=== PATIENT | male | born 1965 | race Caucasian/White ===

== ENCOUNTER → 2018-03-06 11:49 | Outpatient (CLI) | payer MEDICAID, SELFPAY ==
[2018-03-06 13:08] LABS: Hemoglobin A1C 5.2 % (4.5-6.2)
[2018-03-06 14:03] LABS: ALT 123 U/L (12-78); AST 74 U/L (15-37); Albumin 4.1 g/dL (3.4-5.0); Alkaline Phosphatase 88 U/L (46-116); Anion Gap 8.4 mmol/L (3-11); BUN 5 mg/dL (7-18); Bilirubin, Total 0.8 mg/dL (0.2-1.0); CO2 28.6 mmol/L (21.0-32.0); CREATININE 0.99 mg/dL (0.70-1.30); Calcium 8.7 mg/dL (8.5-10.1); Chloride 105 mmol/L (98-107); Cholesterol 224 mg/dL (50-200); Glucose 101 mg/dL (70-100); HDL Cholesterol 67 mg/dL (40-60); LDL CHOLESTEROL 136 mg/dL (<100); Potassium 3.6 mmol/L (3.5-5.1); Sodium 142 mmol/L (136-145); Total Protein 7.6 g/dL (6.4-8.2); Triglyceride 147 mg/dL (30-150); Vitamin B12 501 pg/mL (193-986)
[2018-03-07 11:14] LABS: Homocysteine 15.3 umol/L (4.5-12.4)
[2018-03-09 12:21] LABS: Methylmalonic Acid 0.12 nmol/mL (<=0.40)
== END ==
PROVIDERS: PCP Family Medicine; Visit Provider Family Medicine
DX: I10 Essential (primary) hypertension (principal); R73.03 Prediabetes; R94.5 Abnormal results of liver function studies; D53.9 Nutritional anemia, unspecified
CPT/HCPCS: 36415; 80053; 80061; 80186; 83090; 83721; 82607; 82746; 83036

== ENCOUNTER → 2018-03-08 10:02 | Outpatient (CLI) | payer MEDICAID, SELFPAY ==
--- NOTE | 2018-03-08 09:52 | DI.REPORT_ITS ---
SYMPTOM/DIAGNOSIS: F/U FX LEFT LEG: When compared with previous images there has been no change in the apposition or alignment of the fibular or tibial fracture, intramedullary anabelle and screw fixation device in the tibia. There is evidence of early healing at the fracture sites.
== END ==
PROVIDERS: PCP Family Medicine; Visit Provider Orthopaedic Surgery
DX: S82.202G Unspecified fracture of shaft of left tibia, subsequent encounter for closed fracture with delayed healing (principal); S82.402G Unspecified fracture of shaft of left fibula, subsequent encounter for closed fracture with delayed healing
CPT/HCPCS: 73590

== ENCOUNTER 2018-03-19 11:09 | Emergency (ER) | payer MEDICAID, SELFPAY ==
[2018-03-19 11:15] VITALS: BP 118/98; PULSE 88; RESP 16; TEMP 36.9; O2SAT 99
--- NOTE | 2018-03-19 11:31 | DI.REPORT_ITS ---
SYMPTOM/DIAGNOSIS:REINJURY, H/O FX LEFT TIBIA AND FIBULA: Comparison is made with 03/08/18. An intramedullary anabelle is noted through the tibia. There has been no change in the alignment of the distal tibial fracture or proximal fibular fracture. Considerable lucency remains present at the tibial fracture. No new fractures are seen. 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 IMPRESSION: No acute abnormality. Subacute fractures of the tibia and fibula with tibial intramedullary anabelle.
--- NOTE | 2018-03-19 11:31 | ED.GENADUL ---
Disposition Clinical Impression: Fracture of tibia and fibula, shaft Disposition: HOME Condition: Fair Instructions: Leg Fracture (ED) Additional Instructions: Continue care as previously advised by orthopedics. Encourage rest, ice, elevation. Tylenol and/or ibuprofen as needed for discomfort. Please continue with postoperative boot. Keep appointment next week with Dr. Duncan. If you develop new or worsening symptoms please seek care urgently once again. Referrals: Shayne Duncan MD [ [facility] STAFF PHYSICIAN] - Medical Decision Making - Medical Decision Making Patient presents today with acute on chronic discomfort of the left lower extremity. Patient initially fractured his left tib-fib 5 months ago he underwent subsequent surgical intervention. Since that time the patient has had difficulty with healing. He has been followed by Dr. Duncan. Reinjured his left lower extremity a few days ago. Since that time is wearing his pneumatic boot which has been helping with discomfort. We will reimage it to evaluate for possible acute bony abnormality. Discussed this plan with the patient who is in agreement. He declines any analgesics at this time. Contacted radiologist discussed imaging. In particular, I was concerned on the lateral view of the posterior fragment off the fibula may have shifted further. However, she advised that this appeared more of a rotational change in the imaging rather than a true acute shift in the fragment. Discussed these findings with the patient. Advised that he will need follow-up with Dr. Duncan. He reports that he does have a follow-up appointment Arty scheduled next week. Encouraged rest, ice, elevation. His pneumatic walker does appear quite worn and I did offer him a new one which she declined. He reports that he has another one at home that he can use if need be. Advised to follow instructions as previously outlined by Dr. Duncan. He will keep boot on and will ambulate with assistive device such as cane or walker. All his questions and concerns were addressed and he is in agreement with this plan. He will seek care urgently once again if he develops new or worsening symptoms. History of Present Illness - General Chief complaint: Orthopedic Stated complaint: LT LEG INJURY Time Seen by Provider: 03/19/18 11:24 Source: patient, RN notes reviewed Mode of arrival: wheelchair Limitations: no limitations - History of Present Illness Initial comments: Patient is a 53-year-old male presenting today with chief complaint of left tibial pain. He reports that he fractured his tibia in September of this year. Subsequently had surgical intervention on 10/15/2017. Reports that he has had slow healing since that time. Reports that he was not wearing his postoperative boot or using assistive device and fell while getting out of the car 3 days ago. Since that time he has had discomfort, particularly when weightbearing. States the pain is in the same location as previously diagnosed fracture. Pain does radiate up towards the lateral inferior left knee. States that he has been experiencing some tingling in the left foot. Has not noted swelling near the left ankle. No opening in the skin. Has been using his postoperative shoe since the injury and his family is supportive. Denies other injury the time of the incident. - Related Data Fluticasone Propionate [Flonase] 2 sprays NS DAILY #1 bottle 08/15/17 Hydrochlorothiazide 12.5 mg PO DAILY 90 Days #90 tab-cap 12/26/17 Thiamine HCl 100 mg PO DAILY #30 tab-cap 02/05/18 Cholecalciferol (Vitamin D3) [Vitamin D3] 5,000 unit PO DAILY #90 tab-cap 02/06/18 Amlodipine Besylate 10 mg PO DAILY #90 tab-cap 02/19/18 Allergies Allergy/AdvReac Type Severity Reaction Status Date / Time lisinopril AdvReac Mild COUGH Unverified 03/19/18 11:20 Review of Systems Constitutional: no symptoms reported. denies: chills, fever Respiratory: no symptoms reported. denies: cough, shortness of breath Cardiovascular: denies: chest pain, palpitations Musculoskeletal: as per HPI Skin: as per HPI Neurological: as per HPI Past Medical History - Past Medical History Medical history: hypertension Alcohol abuse, ataxia Surgical history: other (Left tibia IM nail 10/15) - Social History Alcohol use: heavy Drug use: marijuana General Exam - General Limitations: no limitations General appearance: alert, in no apparent distress - Respiratory Respiratory exam: Present: normal lung sounds bilaterally. Absent: respiratory distress - Cardiovascular Cardiovascular Exam: Present: regular rate, normal rhythm, normal heart sounds - Extremities Exam Extremities exam: Present: tenderness (Patient has diffuse tenderness to palpation particularly in the anterior aspect of the tibia, this is worse along the inferior one half. He is also endorsing some lateral pain over the fibula that is more proximal towards the knee. No pain directly over the fibular head or neck. Limited range of motion of the ankle. He does have swelling of the ankle. No break in the skin. Incision appears to feel well with no erythema, warmth or drainage. Good capillary refill. Skin on the feet is quite dry. Calf is soft and nontender), normal capillary refill, joint swelling. Absent: normal inspection, full ROM, pedal edema, calf tenderness - Neurological Exam Neurological exam: Present: alert, abnormal gait - Psychiatric Psychiatric exam: Present: normal affect, normal mood - Skin Skin exam: Present: warm, dry, normal color Course Vital Signs - 24 hr 03/19/18 11:15 Temperature 36.9 C Pulse 88 Respiratory 16 Rate Blood Pressure 118/98 Pulse Oximetry 99
== END 2018-03-19 12:40 | disposition home or self-care (01) ==
PROVIDERS: Emergency Provider Student in an Organized Health Care Education/Training Program; PCP Family Medicine
DX: S89.92XA Unspecified injury of left lower leg, initial encounter (principal); V48.4XXA Person boarding or alighting a car injured in noncollision transport accident, initial encounter; S82.202G Unspecified fracture of shaft of left tibia, subsequent encounter for closed fracture with delayed healing; S82.402G Unspecified fracture of shaft of left fibula, subsequent encounter for closed fracture with delayed healing; I10 Essential (primary) hypertension
CPT/HCPCS: 99283; 73590; 99282

== ENCOUNTER 2018-04-09 09:13 | Outpatient (CLI) | payer MEDICAID, SELFPAY ==
[2018-04-09 11:17] LABS: Abs Immature Grans 0.02 k/cumm (0.0-0.09); Absolute Basophil Count 0.05 k/cumm (0.0-0.2); Absolute Eosinophil Count 0.16 k/cumm (0.0-0.7); Absolute Lymphocyte Count 2.38 k/cumm (1.2-3.4); Absolute Monocyte Count 0.67 k/cumm (0.11-0.7); Absolute Neutrophil Count 3.83 k/cumm (1.2-6.7); Basophils % 0.7; Eosinophils % 2.3; HCT 50.1 % (40.0-50.0); HGB 17.5 g/dL (13.5-17.5); Immature Grans % 0.3; Lymphocytes % 33.5; Mean Corp. HGB Concentration 34.9 g/dL (32.0-36.0); Mean Corpuscular Hemoglobin 34.8 pg (27.0-33.0); Mean Corpuscular Volume 99.6 fL (80-95); Mean Platelet Volume 10.5 fL (8.0-11.0); Monocytes % 9.4; Neutrophils % 53.8; Platelet Count 242 x1000/uL (130-400); RBC 5.03 m/cumm (4.50-6.00); White Blood Cell Count 7.11 k/cumm (4.4-10.8)
== END 2018-04-09 09:33 ==
PROVIDERS: PCP Family Medicine; Visit Provider Family Medicine
DX: R23.8 Other skin changes (principal)
CPT/HCPCS: 36415; 85025

== ENCOUNTER 2018-04-19 13:59 | Outpatient (CLI) | payer MEDICAID, SELFPAY ==
--- NOTE | 2018-04-19 09:27 | DI.RAD_ITS ---
SYMPTOMS/DIAGNOSIS: F/U FX LEFT LEG: When compared with the previous images of 03/19, again noted are the fractures of the tibia and fibula, unchanged in alignment. Tibial anabelle in place.
== END 2018-04-19 14:19 ==
PROVIDERS: PCP Family Medicine; Visit Provider Orthopaedic Surgery
DX: S82.202G Unspecified fracture of shaft of left tibia, subsequent encounter for closed fracture with delayed healing (principal); S82.402G Unspecified fracture of shaft of left fibula, subsequent encounter for closed fracture with delayed healing
CPT/HCPCS: 73590

== ENCOUNTER 2018-04-24 08:07 | Outpatient (CLI) | payer MEDICAID, SELFPAY | END 2018-04-24 08:27 | PROVIDERS: PCP Family Medicine; Visit Provider Orthopaedic Surgery | DX: S82.202G Unspecified fracture of shaft of left tibia, subsequent encounter for closed fracture with delayed healing (principal); S82.402G Unspecified fracture of shaft of left fibula, subsequent encounter for closed fracture with delayed healing; Z01.818 Encounter for other preprocedural examination ==

== ENCOUNTER 2018-04-25 10:57 | Day surgery (SDC) | payer MEDICAID, SELFPAY ==
[2018-04-25 11:06] VITALS: BP 138/88; PULSE 87; RESP 16; TEMP 37.5; O2SAT 96
[2018-04-25] MEDS: Lactated Ringers 1,000 ML 80 ML IV (11:43)
--- NOTE | 2018-04-25 13:37 | DI.RAD_ITS ---
SYMPTOMS/DIAGNOSIS: LEFT TIBIA SCREW/HARDWARE REMOVAL LEFT TIB/FIB: Fluoroscopy Time: 7.8 sec 0.81 mGy A single intraoperative image was obtained and reveals removal of a single screw from the proximal tibial intramedullary anabelle. Please see Dr. Duncan's procedure report for further information.
[2018-04-25 13:39] VITALS: BP 142/83; PULSE 81; RESP 14; TEMP 36.6; O2SAT 93
[2018-04-25 13:44] VITALS: BP 148/80; PULSE 79; RESP 16; TEMP 36.6; O2SAT 94
[2018-04-25 13:59] VITALS: BP 140/68; PULSE 78; RESP 16; TEMP 36.8; O2SAT 93
--- NOTE | 2018-04-25 14:11 | PDOC.DSDIS_ITS ---
Discharge Plan Disposition Patient Disposition: HOME Condition: Good Discharge Details Reason For Visit: remove locking screw from L tibia to dynamize IM n Attending Provider: Shayne Duncan Primary Care Provider: Steve German Home Meds and New Rx's Prescriptions: No Action amlodipine 10 mg tablet 10 mg PO DAILY RF: 0 cholecalciferol (vitamin D3) 5,000 unit capsule 5,000 unit PO DAILY RF: 0 hydrochlorothiazide 12.5 mg capsule 12.5 mg PO DAILY RF: 0 thiamine HCl (vitamin B1) 100 mg tablet 100 mg PO DAILY RF: 0 cyanocobalamin (vitamin B-12) [Vitamin B-12] 500 mcg Tablet 500 mcg PO DAILY RF: 0 calcium carbonate [Calcium 600] 600 mg calcium (1,500 mg) Tablet 600 mg PO DAILY RF: 0 fluticasone-sod chl-sod bicarb 50 mcg- 0.9 % Kit,[place] Suspension And [place] 1 spray Intranasal BID RF: 0 Discharge Instructions Additional Instructions: Increase weight-bearing to tolerance of pain on L leg. Remove dressings, shower and get incision wet after 48 hours. Leave incision uncovered when it is dry and sealed. Follow up in 's office in 1 month. Activity:: Activity as Tolerated Remove Dressings/Wound Care:: 48 hours Shower/Bathe:: 48 hours Diet:: As Tolerated Discharge Orders Discharge Orders: Discharge Order (Routine); Ordered 04/25/18 Ordered By: Shayne Duncan DS: Diagnosis Discharge Diagnosis (1) Closed disp spiral fx of shaft of left tibia with delayed healing: Start date: 04/25/18 Start time: 14:09 Status: Acute Asessment and Plan: Asessment: Delayed union fx L distal tibia, shaft. Plan: Dynamize IM nail by removing locking screw to allow compression across the fracture.
[2018-04-25 14:41] VITALS: BP 128/85; PULSE 82; RESP 18; TEMP 36.5; O2SAT 95
--- NOTE | 2018-04-25 16:46 | ROE_ITS ---
DATE OF PROCEDURE: April 25, 2018 PREOPERATIVE DIAGNOSIS: Delayed union fracture left distal third tibia and fibula. POSTOPERATIVE DIAGNOSIS: Same. PROCEDURE: Removal of proximal interlocking screw left tibia to dynamized IM nail. SURGEON: Shayne Duncan M.D. ANESTHESIA: MAC, supplemented with local infiltration. INDICATIONS: This is a 53-year-old white male who is approaching six months postop closed intramedul marcos nailing of a fracture of the distal third of the left tibia and fibula shaft. Although the stephenie ent is showing visible callus at the fracture, the healing is slow. I felt that he would benefit by dynamizing the nail by removing one of the proximal interlocking screws to allow compression to occur across the fracture. I felt that this would allow the fracture to go on to a more rapid union. The risks and complications of the procedure were explained to the patient in detail preoperatively. PROCEDURE: The patient was taken to the Operating Room on 04/25/18. He was placed supine on the oper ating table and MAC anesthesia was accomplished. I was able to palpate the head of the locking screw proximally medial to the tibia. I confirmed this was the proper screw with the C-arm image intensif ier. I then prepped the skin with ChloraPrep, block draped it, and made an approximately 15-mm incis ion over the screw head. I carried the incision right down to the screw. Sharp dissection was used to expose the screw head. The screwdriver was inserted and the screw was backed out and removed. Th e wound margins were infiltrated with 0.5% Marcaine solution and was approximated with two interrupte d #4-0 nylon sutures. The wound was dressed with Xeroform gauze, sterile gauze 4x4s, and wrapped wit h a 4-inch Osmani bandage. The patient tolerated the procedure well. MAC was reversed and he was disch arged to the Recovery Room in good condition. The patient was discharged home from the Day Surgery Unit when fully recovered. He was given instruc tions to be weightbearing as tolerated to the left leg with his walker. He may increase his weightbe aring as much as discomfort allows. He may remove his dressings, shower and get his incisions wet af ter 48 hours. He can leave the wound uncovered when it is dry and sealed. He will follow up in my o ffice in one month.
== END 2018-04-25 15:01 | disposition home or self-care (01) ==
PROVIDERS: PCP Family Medicine; Visit Provider Orthopaedic Surgery
PROC: (CPT 20680; principal; 2018-04-25 13:00)
DX: S82.202A Unspecified fracture of shaft of left tibia, initial encounter for closed fracture (principal); S82.402A Unspecified fracture of shaft of left fibula, initial encounter for closed fracture; X58.XXXA Exposure to other specified factors, initial encounter; I10 Essential (primary) hypertension
CPT/HCPCS: 20680; 73590; J1100; J2250; J2405; J3010

== ENCOUNTER 2018-05-24 11:10 | Outpatient (CLI) | payer MEDICAID, SELFPAY ==
--- NOTE | 2018-05-24 11:04 | DI.RAD_ITS ---
SYMPTOM/DIAGNOSIS: F/U FX LEFT LEG: Two views were obtained and show a previously described tibiofibular fracture with intramedullary fixation anabelle in place in the tibia. Alignment appears essentially unchanged in comparison with previous examination of 04/19/18.
== END 2018-05-24 11:30 ==
PROVIDERS: PCP Family Medicine; Visit Provider Orthopaedic Surgery
DX: S82.202D Unspecified fracture of shaft of left tibia, subsequent encounter for closed fracture with routine healing (principal); S82.402D Unspecified fracture of shaft of left fibula, subsequent encounter for closed fracture with routine healing
CPT/HCPCS: 73590

== ENCOUNTER 2018-06-20 10:07 | Outpatient (CLI) | payer MEDICAID, SELFPAY ==
--- NOTE | 2018-06-20 09:59 | DI.RAD_ITS ---
SYMPTOM/DIAGNOSIS: F/U FX LEFT LEG: Two views were obtained and show intramedullary anabelle fixation of fracture of the distal diaphysis of the tibia with associated fibular fracture. No gross interval change in alignment in comparison with examination of 05/24.
== END 2018-06-20 10:27 ==
PROVIDERS: PCP Family Medicine; Visit Provider Orthopaedic Surgery
DX: S82.402D Unspecified fracture of shaft of left fibula, subsequent encounter for closed fracture with routine healing (principal); S82.202D Unspecified fracture of shaft of left tibia, subsequent encounter for closed fracture with routine healing
CPT/HCPCS: 73590

== ENCOUNTER 2018-07-18 10:27 | Outpatient (CLI) | payer MEDICAID, SELFPAY ==
--- NOTE | 2018-07-18 10:18 | DI.RAD_ITS ---
SYMPTOMS/DIAGNOSIS: S/P OPEN REDUCTION AND INTERNAL FIXATION RIGHT LEG: When compared with the previous images of 01/28/2018, again noted are the fractures of the proximal fibular shaft and distal metaphysis of the tibia. An intramedullary anabelle and screw fixation device is noted in place and there is some interval healing at the tibial and fibular fracture sites. Portions of the fracture lines remain visible on the present images. There has been no interval change in apposition or alignment or the status of the intramedullary anabelle.
== END 2018-07-18 10:47 ==
PROVIDERS: PCP Family Medicine; Visit Provider Physician Assistant Surgical
DX: S82.202D Unspecified fracture of shaft of left tibia, subsequent encounter for closed fracture with routine healing (principal); S82.402D Unspecified fracture of shaft of left fibula, subsequent encounter for closed fracture with routine healing
CPT/HCPCS: 73590

== ENCOUNTER 2018-09-05 10:38 | Outpatient (CLI) | payer MEDICAID, SELFPAY ==
--- NOTE | 2018-09-05 10:31 | DI.RAD_ITS ---
SYMPTOM/DIAGNOSIS: F/U ORIF LEFT TIBIA AND FIBULA: Comparison is made with 07/18/18. An intramedullary anabelle is again noted through the tibia. There has been continued healing at the distal fibular fracture and proximal fibular fracture. The bones appear osteoporotic from disuse. No new abnormalities are seen.
== END 2018-09-05 10:58 ==
PROVIDERS: PCP Family Medicine; Visit Provider Orthopaedic Surgery
DX: S82.202D Unspecified fracture of shaft of left tibia, subsequent encounter for closed fracture with routine healing (principal); S82.402D Unspecified fracture of shaft of left fibula, subsequent encounter for closed fracture with routine healing; M81.8 Other osteoporosis without current pathological fracture
CPT/HCPCS: 73590

== ENCOUNTER 2018-09-20 12:55 | Outpatient (CLI) | payer MEDICAID, SELFPAY ==
[2018-09-20 13:43] LABS: Abs Immature Grans 0.03 k/cumm (0.0-0.09); Absolute Basophil Count 0.04 k/cumm (0.0-0.2); Absolute Eosinophil Count 0.08 k/cumm (0.0-0.7); Absolute Lymphocyte Count 2.34 k/cumm (1.2-3.4); Absolute Monocyte Count 0.66 k/cumm (0.11-0.7); Absolute Neutrophil Count 4.02 k/cumm (1.2-6.7); Basophils % 0.6; Eosinophils % 1.1; HCT 46.3 % (40.0-50.0); HGB 16.4 g/dL (13.5-17.5); Immature Grans % 0.4; Lymphocytes % 32.6; Mean Corp. HGB Concentration 35.4 g/dL (32.0-36.0); Mean Corpuscular Hemoglobin 35.3 pg (27.0-33.0); Mean Corpuscular Volume 99.8 fL (80-95); Mean Platelet Volume 10.2 fL (8.0-11.0); Monocytes % 9.2; Neutrophils % 56.1; Platelet Count 250 x1000/uL (130-400); RBC 4.64 m/cumm (4.50-6.00); RBC Distribution Width 12.4 % (11.8-14.1); White Blood Cell Count 7.17 k/cumm (4.4-10.8)
[2018-09-20 14:36] LABS: Iron 186 ug/dL (50-175)
[2018-09-20 15:09] LABS: ALT 147 U/L (12-78); AST 61 U/L (15-37); Albumin 4.1 g/dL (3.4-5.0); Alkaline Phosphatase 87 U/L (46-116); Anion Gap 11.8 mmol/L (3-11); BUN 12 mg/dL (7-18); Bilirubin, Total 0.7 mg/dL (0.2-1.0); CO2 27.2 mmol/L (21.0-32.0); CREATININE 1.06 mg/dL (0.70-1.30); Calcium 9.3 mg/dL (8.5-10.1); Chloride 104 mmol/L (98-107); Glucose 77 mg/dL (70-100); Potassium 4.1 mmol/L (3.5-5.1); Sodium 143 mmol/L (136-145); Total Protein 7.5 g/dL (6.4-8.2)
[2018-09-20 15:17] LABS: Ferritin 1615 ng/mL (8-388)
== END 2018-09-20 13:15 ==
PROVIDERS: PCP Family Medicine; Visit Provider Dermatology
DX: E80.1 Porphyria cutanea tarda (principal)
CPT/HCPCS: 36415; 80053; 82728; 83540; 84311; 85025

== ENCOUNTER 2018-11-05 02:16 | Outpatient (CLI) | payer MEDICAID, SELFPAY ==
[2018-11-05 13:02] LABS: ALT 123 U/L (12-78); AST 49 U/L (15-37); Albumin 3.7 g/dL (3.4-5.0); Alkaline Phosphatase 91 U/L (46-116); Anion Gap 10.3 mmol/L (3-11); BUN 13 mg/dL (7-18); Bilirubin, Total 0.7 mg/dL (0.2-1.0); CO2 27.7 mmol/L (21.0-32.0); Calcium 9.2 mg/dL (8.5-10.1); Chloride 103 mmol/L (98-107); Glucose 94 mg/dL (70-100); Iron 182 ug/dL (50-175); Potassium 4.4 mmol/L (3.5-5.1); Sodium 141 mmol/L (136-145); Total Iron Binding Capacity 316 ug/dL (250-450); Total Protein 7.3 g/dL (6.4-8.2); Transferrin Sat 58 % (20-55)
== END 2018-11-05 02:36 ==
PROVIDERS: PCP Family Medicine; Visit Provider Family Medicine
DX: I10 Essential (primary) hypertension (principal); R79.89 Other specified abnormal findings of blood chemistry
CPT/HCPCS: 36415; 80053; 83540; 83550

== ENCOUNTER 2018-12-31 09:14 | Outpatient (CLI) | payer SELFPAY ==
[2018-12-31 10:49] LABS: Abs Immature Grans 0.04 k/cumm (0.0-0.09); Absolute Basophil Count 0.03 k/cumm (0.0-0.2); Absolute Eosinophil Count 0.09 k/cumm (0.0-0.7); Absolute Lymphocyte Count 2.02 k/cumm (1.2-3.4); Absolute Monocyte Count 0.71 k/cumm (0.11-0.7); Basophils % 0.4; Eosinophils % 1.2; HCT 47.5 % (40.0-50.0); HGB 16.8 g/dL (13.5-17.5); Immature Grans % 0.5; Lymphocytes % 26.3; Mean Corp. HGB Concentration 35.4 g/dL (32.0-36.0); Mean Corpuscular Hemoglobin 35.4 pg (27.0-33.0); Mean Platelet Volume 10.1 fL (8.0-11.0); Monocytes % 9.2; Neutrophils % 62.4; Platelet Count 218 x1000/uL (130-400); RBC 4.75 m/cumm (4.50-6.00); RBC Distribution Width 12.2 % (11.8-14.1); White Blood Cell Count 7.69 k/cumm (4.4-10.8)
[2018-12-31 11:48] LABS: ALT 107 U/L (12-78); AST 49 U/L (15-37); Albumin 3.9 g/dL (3.4-5.0); Alkaline Phosphatase 106 U/L (46-116); Anion Gap 11.6 mmol/L (3-11); BUN 9 mg/dL (7-18); Bilirubin, Total 0.8 mg/dL (0.2-1.0); CO2 24.4 mmol/L (21.0-32.0); CREATININE 1.05 mg/dL (0.70-1.30); Calcium 9.5 mg/dL (8.5-10.1); Chloride 103 mmol/L (98-107); Glucose 107 mg/dL (70-100); Potassium 4.5 mmol/L (3.5-5.1); Sodium 139 mmol/L (136-145); Total Protein 7.7 g/dL (6.4-8.2)
[2019-01-01 12:23] LABS: GGT 223 U/L (15-85)
[2019-01-01 14:55] LABS: ANA Interpretation Negative (NEGAT)
== END 2018-12-31 09:34 ==
PROVIDERS: PCP Family Medicine; Visit Provider Family Medicine
DX: I10 Essential (primary) hypertension (principal); R94.5 Abnormal results of liver function studies; L03.90 Cellulitis, unspecified
CPT/HCPCS: 36415; 80053; 82977; 85025; 86038

== ENCOUNTER 2019-06-29 23:42 | Emergency (ER) | payer SELFPAY ==
[2019-06-29 23:51] VITALS: BP 145/91; PULSE 77; RESP 20; TEMP 36.6; O2SAT 100
[2019-06-30] VITALS (32 sets, daily range): BP systolic 115–156; BP diastolic 77–91; PULSE 82–98; RESP 18–39; O2SAT 92–97
--- NOTE | 2019-06-30 00:05 | ED.GENADUL_ITS ---
Discharge Plan Disposition Patient Disposition: HOME Condition: Improving Discharge Details Chief Complaint: Orthopedic Clinical Impression: Recurrent anterior dislocation of right shoulder Primary Care Provider: Steve German ED Provider: Shayne Tyler Home Meds and New Rx's Prescriptions: Continued irbesartan 300 mg tablet 300 mg PO DAILY Qty: 30 RF: 11 amlodipine 10 mg tablet 10 mg PO DAILY RF: 0 hydrochlorothiazide 12.5 mg capsule 12.5 mg PO DAILY RF: 0 Discharge Instructions Instructions: Shoulder Dislocation (ED) Additional Instructions: Please follow-up in orthopedic clinic for recheck. Call the office for an appointment time. The office #[phone]. Apply ice to area to reduce discomfort. Tylenol and/or ibuprofen if needed for pain. Wear sling except while bathing until seen in orthopedics for follow-up. Return to the emergency department for any acute concerns Medical Decision Making 54-year-old male who states he has had at least 15 episodes of recurrent right shoulder dislocation. Slipped on the ice tonight and reached out to grab his nearby vehicle when he felt a pop in the right shoulder with immediate pain. Denies striking his head. There was no loss of consciousness. He was not injured in any other way. His exam reveals loss of fullness of the right humeral head with the right arm held in slight abduction and internal rotation. IV placed and patient given analgesia, referred for x-ray. Initial x-ray: Anterior shoulder dislocation present with abnormal appearance of the glenoid and superolateral humeral head per report, could represent Bankart and Hill- Sachs deformities. Patient consented for procedural sedation, sedated with propofol, and the right glenohumeral joint was reduced with traction, abduction and external rotation. Postprocedure lateral deltoid sensation remains normal. Repeat x-ray: Anatomic alignment of right glenohumeral joint. Minute avulsion fracture cannot be excluded. Hill-Sachs deformity suspected on the pre- reduction study. Degenerative changes noted. Patient placed in sling, we will have him follow-up in orthopedic clinic for recheck given his extensive history of recurrent dislocations as well as chronic x-ray abnormalities. HPI General Mode of arrival: wheelchair . Date/Time Provider Initiated Documentation: 06/29/19 23:44 . Limitations to Documentation: no limitations . Information obtained by: patient and family . History of Present Illness 54 year old M presents to the emergency department with the chief complaint of Right shoulder pain after slip and fall, described as moderate and similar to prior episodes, Quality is described as dull, and is localized to the right and upper extremity. Patient reports no radiation. Patient started experiencing this minute(s) and it has been constant. No relieving factors improve symptom(s), No exacerbating factors reported . Patient notes no other symptoms.. Patient did receive the following treatments prior to arrival, none Related Data Home Medications Medication Instructions Recorded Confirmed amlodipine 10 mg tablet 10 mg PO DAILY 04/06/18 12/31/18 hydrochlorothiazide 12.5 mg capsule 12.5 mg PO DAILY 04/06/18 12/31/18 irbesartan 300 mg tablet 300 mg PO DAILY #30 tab 11/05/18 12/31/18 Previous Rx's Medication Instructions Recorded irbesartan 300 mg tablet 300 mg PO DAILY #30 tab 11/05/18 Allergies Allergy/AdvReac Type Severity Reaction Status Date / Time lisinopril AdvReac Mild COUGH Verified 06/30/19 00:04 General Stated Complaint: Orthopedic MAX: 3 Review of Systems Narrative: Denies a loss of consciousness. No head/neck/back/chest discomfort. No numbness or tingling. [facility] Medical History Alcohol use disorder, moderate, in early remission, dependence (Chronic 05/10/17) Allergic rhinitis (Acute 08/15/17) Closed disp spiral fx of shaft of left tibia with delayed healing (Acute) Elevated liver function tests (Acute 05/10/17) Essential hypertension (Chronic 05/10/17) Hepatic steatosis (Chronic 02/19/18) Elevated LFTs negative thorough workup previously. Possibly ingesting alcohol once again. Hypertension (Chronic 05/10/17) fair control. Macrocytic anemia (Chronic 03/06/18) We will repeat CBC. likely cause alcohol abuse Peripheral polyneuropathy (Chronic 05/10/17) Prediabetes (Chronic 02/19/18) Rectus sheath hematoma Recurrent dislocation, left shoulder Smoker (Chronic 12/26/17) currently 1 pack for week. Unstable gait (Chronic 05/10/17) Vitamin D deficiency (Chronic 01/26/18) Family History Father Heart disease Social History Smoking/Tobacco Use Status: Current every day Tobacco Type: cigarettes Alcohol Intake: current Alcohol Intake frequency: 3 or more drinks per day Alcohol type: beer Drug use: Occasionally Substance use type: marijuana Do you feel safe in your relationship?: Yes Exam Narrative Exam Narrative: GEN: awake, alert, oriented 3. Pleasant, interactive. HEAD: Normocephalic, atraumatic ENT: Mucous membranes moist, oropharynx unremarkable, External ear exam unremarkable EYES: PERRL, EOMI NECK: Full ROM, no LUPILLO, no menigismus CHEST/RESP: Nontender, clear to auscultation bilateral, no wheeze/rhonchi/rales CARDIOVASCULAR: RRR, no murmur, rub tarun. 2+ Rad pulse bilateral ABDOMEN: Soft, nontender, no mass. +Bowel sounds EXT: Left upper extremity unremarkable. The right upper extremity is held in abduction and internal rotation. Normal sensation overlying lateral deltoid. Neuro: Grossly normal neurologic exam, conversant, interactive. Psych: Speech fluent, thoughts congruent, affect normal Course Vital Signs Vital signs: Vital Signs Temperature 36.6 C 06/29/19 23:51 Pulse 77 06/29/19 23:51 Respiratory Rate 20 06/29/19 23:51 Blood Pressure 145/91 H 06/29/19 23:51 Pulse Oximetry 100 06/29/19 23:51 Temperature 36.6 C 06/29/19 23:51 Temperature Source Skin 06/29/19 23:51 Pulse 77 06/29/19 23:51 Respiratory Rate 20 06/29/19 23:51 Respiratory Effort 06/29/19 23:51 Blood Pressure 145/91 H 06/29/19 23:51 Pulse Oximetry 100 06/29/19 23:51 Oxygen Delivery Method Room Air 06/29/19 23:51 Oxygen Flow Rate 0 06/29/19 23:51 Pain Level 8 06/29/19 23:51 Procedures Orthopedic Joint Reduction Joint #1: Time Out Performed: Yes Side: right Joint Reduction Location: shoulder Analgesia: procedural sedation Shoulder Technique Used (if applicable): traction/counter-traction and external rotation Post-reduction neuro exam: intact and no change Post-reduction vascular: intact and no change Post Reduction X-Ray Obtained: Yes Post Reduction X-Ray Results: reduced Procedural Sedation Indication: fracture/dislocation reduction (R shoulder) ASA Class: II Time of Last PO Intake: 04:00 Preparation: clinical support tech applied, pulse oximeter and capnometry used IV Propofol dose (mg): 200 Patient Tolerated Procedure: well Complications: none
[2019-06-30] MEDS: Normal Saline 1,000 ML 150 ML IV (00:22)
[2019-06-30] MEDS: HYDROmorphone 2 MG/ML VIAL 0.5 MG IVP (00:22)
--- NOTE | 2019-06-30 00:33 | DI.RAD_ITS ---
EXAM: XR SHOULDER RT COMPLETE 2+V INDICATION: fall, R shoulder pain. COMPARISON: RIGHT SHOULDER COMPLETE from 08/17/2013 RIGHT SHOULDER COMP POST REDUC from 08/17/2013 RIGHT SHOULDER 1 VIEW from 05/24/2014 TECHNIQUE: 2D digital imaging was performed. FINDINGS: There is an anterior dislocation of the right shoulder. No definite acute fracture is appreciated. The appearance of the glenoid is similar compared to the examination from 08/17/2013. Degenerative c hanges are seen at the acromioclavicular joint. The soft tissues are unremarkable. IMPRESSION: Anterior dislocation of the right shoulder.
--- NOTE | 2019-06-30 00:45 | DI.VRAD_ITS ---
PROCEDURE INFORMATION: Exam: XR Right Shoulder Exam date and time: 06/30/2019 12:05 AM Age: 54 years old Clinical history: Right; Patient HX: Fall, R shoulder pain TECHNIQUE: Imaging protocol: XR Right shoulder. Views: 2 or more views. COMPARISON: CR RIGHT SHOULDER 1 VIEW 07/23/2015 3:18 AM FINDINGS: Bones/joints: Anterior dislocation of the humerus with respect to the glenoid. Abnormal appearance of the glenoid and superolateral humeral head. Soft tissues: Normal. IMPRESSION: 1. Anterior shoulder dislocation. 2. Abnormal appearance of the glenoid and superolateral humeral head could represent Bankart and Hill-Sachs deformities. Recommend further evaluation with post reduction radiographs or CT. Dictated and Authenticated by: Fabián Duffy MD. Ordering:RUDDY Bella MD
--- NOTE | 2019-06-30 00:59 | NUR.NOTE ---
Nursing Note:Waiting RT arrival before sedating patient for reduction
--- NOTE | 2019-06-30 01:40 | NUR.NOTE ---
Nursing Note:0110: Time-out- Dr. Tyler, Lázaro Macario (RT), Leticia Ramirez RN and Ele Mancera RN at bedside for timeout. 0114: 100 MG Propofol IV given by Dr. Tyler 0116: Dr. yTler manipulating right shoulder. Patient follows Dr. Tyler with eyes. 0117 Patient placed on 4L oxygen per NC by RT Lázaro 0119 100 MG Propofol IV given by Dr. Tyler. 0120 Dr Tyler manipulating right shoulder. 0123 Right arm placed in sling. 0124 Patient now on room air. 0130 Patient waking, able to give name and place [place] 0133 Patient states he ain't got that pulled back in. 0135 Patient now awake, oriented to person place and time. 0140 Waiting on post procedure xray. Patient sleeps at times, awakes easily to verbal. Remains oriented to person place and time. 0150 To radiology per cart. Patient remains alert and oriented x 3.
--- NOTE | 2019-06-30 01:56 | DI.RAD_ITS ---
EXAM: XR SHOULDER RT COMP POST REDUC INDICATION: s/p reduction. COMPARISON: XR SHOULDER RT COMPLETE 2+V from 06/30/2019 TECHNIQUE: 2D digital imaging was performed. FINDINGS: There appears to be successful reduction of the right shoulder dislocation. Alignment is near anatom ic. No definite fracture is identified. Deformity of the inferior aspect of the glenoid is unchange d compared to examination from 2014. The soft tissues are unremarkable. The bones are normally mine ralized. IMPRESSION: Status post reduction of the right shoulder dislocation. Alignment is now near anatomic. If there i s concern for fracture, a CT scan of the shoulder may be obtained for further evaluation.
--- NOTE | 2019-06-30 02:04 | NUR.NOTE ---
Nursing Note: 0200: Return from radiology per cart. OK to leave off surveillance monitor per Dr. Tyler.
--- NOTE | 2019-06-30 02:08 | NUR.NOTE ---
Nursing Note: Patient now call friend for ride home.
--- NOTE | 2019-06-30 02:18 | DI.VRAD_ITS ---
PROCEDURE INFORMATION: Exam: XR Right Shoulder Exam date and time: 06/30/2019 1:47 AM Age: 54 years old Clinical history: Screening exam; Post-reduction R shoulder; Patient HX: Post-reduction of R shoulder TECHNIQUE: Imaging protocol: XR Right shoulder. Views: 2 or more views. COMPARISON: CR XR SHOULDER RT COMPLETE 2+V 06/30/2019 12:33 AM FINDINGS: Bones/joints: Anatomic alignment of right glenohumeral joint now near normal. Minute avulsion fracture cannot be excluded from the inferior border of the glenoid. Hill-Sachs deformity suspected on the prereduction study. Degenerative changes of acromioclavicular joint. Soft tissues: Normal. IMPRESSION: 1. Near normal anatomic positioning of glenohumeral joint post reduction. 2. Minute avulsion fracture cannot be excluded from the inferior border of glenoid. 3. Hill-Sachs deformity cannot be excluded on images submitted for review. CT could be performed for further evaluation. Dictated and Authenticated by: Osbaldo Cooper MD. Ordering:RUDDY Bella MD
== END 2019-06-30 02:30 | disposition home or self-care (01) ==
PROVIDERS: Emergency Provider Emergency Medicine; PCP Family Medicine
DX: S43.014A Anterior dislocation of right humerus, initial encounter (principal); I10 Essential (primary) hypertension; W00.0XXA Fall on same level due to ice and snow, initial encounter
CPT/HCPCS: 23650; 73030; 96361; 96374; 99284; L3650

== ENCOUNTER 2020-06-29 19:17 | Outpatient (REF) | payer MEDICARE, SELFPAY ==
[2020-06-29 21:10] LABS: Abs Immature Grans 0.01 10^3/uL (0.0-0.06); Absolute Basophil Count 0.04 10^3/uL (0.0-0.2); Absolute Eosinophil Count 0.01 10^3/uL (0.0-0.7); Absolute Lymphocyte Count 1.32 10^3/uL (1.2-3.4); Absolute Monocyte Count 0.42 10^3/uL (0.1-0.8); Absolute Neutrophil Count 3.34 10^3/uL (1.2-6.7); Basophils % 0.8; Eosinophils % 0.2; HCT 46.9 % (40.0-50.0); HGB 16.3 g/dL (13.5-17.5); Immature Grans % 0.2; Lymphocytes % 25.7; MCH 34.7 pg (27.0-33.0); MCHC 34.8 % (32.0-36.0); MCV 99.8 fL (80-95); MPV 9.5 fL (8.0-11.0); Monocytes % 8.2; Neutrophils % 64.9; Nucleated RBC 0 %; Platelet Count 191 10^3/uL (130-400); RDW 11.9 % (11.8-14.1); RDW-SD 43.9 fL; WBC 5.14 10^3/uL (4.4-10.8)
[2020-06-29 21:37] LABS: ALT 53 U/L (16-63); AST 47 U/L (15-37); Albumin 3.9 g/dL (3.4-5.0); Alkaline Phosphatase 69 U/L (46-116); Anion Gap 10.5 mmol/L (3-11); BUN 5 mg/dL (7-18); Bilirubin, Total 0.8 mg/dL (0.2-1.0); CO2 24.5 mmol/L (21.0-32.0); Calcium 8.9 mg/dL (8.5-10.1); Calculated LDL 71 mg/dL (<100); Chloride 103 mmol/L (98-107); Cholesterol 178 mg/dL (<200); Glucose 95 mg/dL (74-106); HDL Cholesterol 99 mg/dL (40-60); Potassium 4.5 mmol/L (3.5-5.1); Sodium 138 mmol/L (136-145); Total Protein 7.3 g/dL (6.4-8.2); Triglyceride 40 mg/dL (<150)
[2020-06-29 21:47] LABS: Vitamin D 25 Total 31.3 ng/ml (30-100)
== END 2020-06-29 19:37 ==
LOC: LBN 19:17
PROVIDERS: PCP Family Medicine; Visit Provider Family Medicine
DX: I10 Essential (primary) hypertension (principal); E55.9 Vitamin D deficiency, unspecified; F10.21 Alcohol dependence, in remission; R27.0 Ataxia, unspecified
CPT/HCPCS: 80053; 80061; 82306; 85025

== ENCOUNTER → 2020-09-07 09:39 | Outpatient (BNVA) | payer MEDICARE, SELFPAY | PROVIDERS: PCP Family Medicine; Referring Provider Family Medicine; Visit Provider Psychiatry & Neurology Neurology | DX: R27.8 Other lack of coordination (principal); I10 Essential (primary) hypertension; R26.81 Unsteadiness on feet | CPT/HCPCS: 99215 ==

== ENCOUNTER 2020-09-09 02:52 | Outpatient (CLI) | payer MEDICARE, SELFPAY ==
[2020-09-09 12:49] LABS: Hemoglobin A1C 4.7 % (<5.7)
[2020-09-09 13:13] LABS: TSH (W/Ref FT4) 1.49 uIU/mL (0.36-3.74); Vitamin B12 255 pg/mL (193-986)
[2020-09-10 15:19] LABS: Albumin 59.4 % (55.8-66.1); Total Protein 7.5 g/dL (6.3-8.2)
== END 2020-09-09 02:53 | disposition home or self-care (01) ==
LOC: LOS 02:52
PROVIDERS: PCP Family Medicine; Visit Provider Psychiatry & Neurology Neurology
DX: I10 Essential (primary) hypertension (principal); R73.03 Prediabetes; G62.89 Other specified polyneuropathies; R26.89 Other abnormalities of gait and mobility
CPT/HCPCS: 36415; 82607; 83036; 84165; 84443

== ENCOUNTER 2020-11-16 16:30 | Emergency (ER) | payer MEDICARE, SELFPAY ==
[2020-11-16 16:36] VITALS: BP 159/97; PULSE 98; RESP 18; TEMP 36.8; O2SAT 97
--- NOTE | 2020-11-16 16:51 | ED.GENADUL_ITS ---
Discharge Plan Disposition Patient Disposition: HOME Condition: Stable Discharge Details Clinical Impression: Laceration of scalp Primary Care Provider: Steve German ED Provider: Byron Pereira Home Meds and New Rx's Prescriptions: Continued irbesartan 150 mg tablet 150 mg PO DAILY Qty: 90 RF: 3 amlodipine 5 mg tablet 5 mg PO DAILY Qty: 90 RF: 3 Discharge Instructions Instructions: Skin Adhesive Care (ED) Additional Instructions: if you have worsening pain, fevers, weakness, persistent vomit or yellow/white discharge from the wound return to the emergency department Medical Decision Making 55 yo male with hx of alcohol abuse resulting in ataxia requiring him to use a walker with peripheral neuropathy, was outside using his walker when he states he lost balance and fell back hitting his posterior head. Denies loss of consciousness, no vomit since and only has mild in posterior head where he hit the head. Denies any weakness, chest pain, neck pain, abdominal pain, dyspnea. Denies being on blood thinners. He has had alcohol today but is currently caox4 with clear speech and is clinically sober and has capacity to make his own decisions. On exam he has no scalp hematoma and has no signs of basilar skull fracture. He meets all criteria per [place] head ct rules to not image the head and has no midline c spine pain. He has a 1cm posterior scalp laceration. I recommended closing with abimael but he declined and also declined sutures. He is willing to have the woud closed with dermabond and was advised of reasons to close with abimael including quicker healing and will have less issues with it rebleeding and he still wants to have dermabond. I cleaned the wound and closed with dermabond, will d/c with usual customary return precautions Differential Diagnosis Differential Diagnosis: laceration, abrasion, contusion Medical Records Medical records reviewed: Yes I reviewed the patient's medical records. HPI General Mode of arrival: ambulatory (with walker) . Date/Time Provider Initiated Documentation: 11/16/20 16:43 . Limitations to Documentation: no limitations . Information obtained by: patient . History of Present Illness 55 year old M presents to the emergency department with the chief complaint of scalp wound, described as mild, Quality is described as aching, and it has been constant. No relieving factors improve symptom(s), No exacerbating factors reported . Patient notes no other symptoms.. Patient did receive the following treatments prior to arrival, none Related Data Home Medications Medication Instructions Recorded Confirmed amlodipine 5 mg tablet 5 mg PO DAILY #90 tab 07/10/20 11/16/20 irbesartan 150 mg tablet 150 mg PO DAILY #90 tab 07/10/20 11/16/20 Previous Rx's Medication Instructions Recorded amlodipine 5 mg tablet 5 mg PO DAILY #90 tab 07/10/20 irbesartan 150 mg tablet 150 mg PO DAILY #90 tab 07/10/20 Allergies Allergy/AdvReac Type Severity Reaction Status Date / Time lisinopril AdvReac Mild COUGH Verified 11/16/20 16:40 General Stated Complaint: Laceration MAX: 4 Review of Systems All systems reviewed & are unremarkable except as noted in HPI and below Constitutional Constitutional: Denies chills, Denies fever(s) and Denies weakness Eyes Eyes: Denies loss of vision Cardiovascular Cardiovascular: Denies chest pain and Denies dyspnea Respiratory Respiratory: Denies cough and Denies dyspnea Gastrointestinal Gastrointestinal: Denies abdominal pain, Denies nausea and Denies vomiting Musculoskeletal Musculoskeletal: Denies joint swelling Neurologic Neurologic: Denies loss of vision and Denies weakness FOR[facility]LY [facility], [facility] Medical History (Updated 11/16/20 @ 16:52 by Byron Pereira MD) Alcohol use disorder, moderate, in early remission, dependence (05/10/17) Allergic rhinitis (08/15/17) Closed disp spiral fx of shaft of left tibia with delayed healing Elevated liver function tests (05/10/17) Essential hypertension (05/10/17) Hepatic steatosis (02/19/18) Elevated LFTs negative thorough workup previously. Possibly ingesting alcohol once again. Hypertension (05/10/17) fair control. Macrocytic anemia (03/06/18) We will repeat CBC. likely cause alcohol abuse Peripheral polyneuropathy (05/10/17) Prediabetes (02/19/18) Rectus sheath hematoma Recurrent dislocation, left shoulder Smoker (12/26/17) currently 1 pack for week. Unstable gait (05/10/17) Vitamin D deficiency (01/26/18) Family History Father Heart disease Social History Smoking/Tobacco Use Status: Current every day Tobacco Type: cigarettes Smoking risk assessment performed?: Yes Alcohol Intake: current Alcohol Intake frequency: 3 or more drinks per day Alcohol type: beer Drug use: Occasionally Substance use type: marijuana Household members: none Housing: apartment Number of Children: 3 number of grandchildren: 8 Pets and animals: Yes Pets and animals: fish What is your relationship status?: Panel score (0-1 are the most socially isolated patients): 0 What type of physical activity do you participate in: walking Seatbelt use: sometimes Do you feel safe in your relationship?: Yes Additional Social history: patient is homeless Exam Const General: no acute distress Orientation: alert HENMT Head: no palpable skull fracture Ears: external ears normal General nose exam: external nose normal Mouth: moist mucous membranes Eyes General: appearance normal, both eyes and all related structures Neck Neck: normal visual inspection Resp Effort & Inspection: normal respiratory effort and able to speak in complete sentences Cardio Rate: regular rate Skin General skin exam: no rashes or lesions noted Neuro General: patient alert and patient oriented x3 Extrem General: normal to inspection Psych Mental Status: mental status grossly normal Course Vital Signs Vital signs: Vital Signs Temperature 36.8 C 11/16/20 16:36 Pulse 98 H 11/16/20 16:36 Respiratory Rate 18 11/16/20 16:36 Blood Pressure 159/97 H 11/16/20 16:36 Pulse Oximetry 97 11/16/20 16:36 Temperature 36.8 C 11/16/20 16:36 Temperature Source Temporal Artery Scan 11/16/20 16:36 Pulse 98 H 11/16/20 16:36 Respiratory Rate 18 11/16/20 16:36 Respiratory Effort Non-Labored 11/16/20 16:41 Blood Pressure 159/97 H 11/16/20 16:36 Blood Pressure Position Sitting 11/16/20 16:36 Pulse Oximetry 97 11/16/20 16:36 Oxygen Delivery Method Room Air 11/16/20 16:36 Oxygen Flow Rate 0 11/16/20 16:36 Pain Level 2 11/16/20 16:36 Procedures Laceration Laceration 1: Site: scalp Size (cm): 1 Description: linear Depth: simple, single layer Pre-repair: wound explored and irrigated extensively Skin layer closed with: other (skin adhesive dermabond)
== END 2020-11-16 17:18 | disposition home or self-care (01) ==
PROVIDERS: Emergency Provider Emergency Medicine; PCP Family Medicine
DX: S01.01XA Laceration without foreign body of scalp, initial encounter (principal); W18.39XA Other fall on same level, initial encounter
CPT/HCPCS: 12001

== ENCOUNTER 2021-02-08 09:53 | Inpatient (IN) | payer MEDICARE, SELFPAY ==
[2021-02-08] VITALS (68 sets, daily range): BP systolic 118–158; BP diastolic 79–90; PULSE 98–129; RESP 15–36; TEMP 37.2–37.7; O2SAT 96–100
--- NOTE | 2021-02-08 | DI.CT_ITS ---
Exam(s) CT LOWER EXTREMITY LT W EXAM: CT LOWER EXTREMITY LT W CLINICAL HISTORY: LEG WOUND. TECHNIQUE: Imaging Protocol: Axial computed tomography images with coronal and sagittal reformatted images were created and reviewed. CONTRAST MATERIAL: Intravenous: Omnipaque 350 Contrast volume:structured data in ml Contrast route:I V - Oral: yes / no COMPARISON: No exams were available for comparison FINDINGS: OSSEOUS: No acute fractures. Intramedullary anabelle noted in the tibia. No evidence of osteomyelitis. ARTICULATIONS: No evidence of hip joint effusion nor fusion the knee nor ipsilateral ankle joint effu saadia. SOFT TISSUES: Abundant subcutaneous edema in the thigh and calf. No obvious abscess. No radiopaque foreign body. IMPRESSION: Prominent subcutaneous edema in the thigh and calf. No obvious abscess. No evidence of osteomyeliti s. No joint effusion. Incidentally noted is a long intramedullary anabelle in left tibia and 2 fractures in the mid fibula, 1 he aled and the other slightly above this level nonunion. RADIATION DOSE DELIVERED: Total DLP DATA REPOSITORY: All CT scans at this facility are submitted to the National Radiology Data Registry (NRDR) Dose Index Registry (DIR) with the [employer] (ACR). RADIATION OPTIMIZATION: All CT scans at this facility use at least one of these dose optimization te chniques: automated exposure control; mA and/or kV adjustment per patient size (includes targeted exa ms where dose is matched to clinical indication); or iterative reconstruction.
--- NOTE | 2021-02-08 10:00 | RT.EKG_ITS ---
APPROVED REPORT Exam: Resting ECG Reason for Exam: tachycardia Patient Location: E HR:126 bpm ECG Measurements Heart Rate 126 AXIS LA 142 P 43 QRSd 86 QRS 39 QT 321 T 0 QTc 465 Conclusion Sinus tachycardia...rate> 99 Inferior infarct, old...Q >35mS, II III aVF sinus tachycardia at 126, normal axis, inferior Q waves, no STEMI, nondiagnostic EKG
--- NOTE | 2021-02-08 10:12 | W.ED.GENAD ---
Discharge Plan Discharge Details Chief Complaint: GenMedical Admit Date/Time: 02/08/21 14:02 Admit Provider: Kris Rogers Attending Provider: Kris Rogers Primary Care Provider: Elvin Pascual ED Provider: Lucille Flores Discharge Data Discharge Date/Time-TO BE ENTERED AT DEPARTURE: 02/08/21 14:54 Medical Decision Making Binu Bello is a 56-year-old man who presented to emergency department with pain in his sacral area, buttocks, scrotum, bilateral posterior thighs after being seated in his car without moving for over 1 month. On examination patient is alert and acutely nontoxic appearing. Initially there was excrement putting skin diffusely in the areas of patient's pain. Significant skin breakdown/dermatitis over her sacrum, buttock, scrotum, bilateral posterior thighs. Concern for dehydration, metabolic/lyte derangement, cellulitis, DVT, other. Doubt deep space infection, Houston's gangrene, however given the extent of skin wounds plan for CT pelvis and bilateral lower legs to the knee. Plan for IV fluid hydration, IV placement, screening labs, UA. Exam/history at this time is not consistent with pulmonary embolism, acute coronary syndrome, sepsis, cauda equina syndrome. Labs reviewed. Imaging shows no abscess, no soft tissue gas. Plan for admission for further evaluation, wound care. Patient will likely need extensive delinquency prevention social worker/placement. Clinical impression: Skin wounds Disposition: [facility] inpatient Medical Records Medical records reviewed: Yes I reviewed the patient's medical records. Imaging Data Radiologic Study: Attestation: I personally reviewed and interpreted this imaging study as follows: Radiologist's impression: EXAM: US EXTREMITY VENOUS BI CLINICAL HISTORY: b/l leg pain, prolonged immobility TECHNIQUE: Grayscale, color, and doppler imaging of the deep venous system of both lower extremities was performed. COMPARISON: US ABDOMEN ULTRASOUND (P) from 05/12/2017 FINDINGS: There is no evidence of intraluminal thrombus and there is normal compression and augmentation demonstrated within the common femoral veins, femoral veins, and popliteal veins of both lower extremities. In the calves the interrogated veins also exhibit normal compression/ augmentation properties. The greater saphenous veins also appear patent as do the saphenofemoral junctions bilaterally.. There are prominent lymph nodes in both groins which are most probably reactive given the history here. There is also bilateral calf and thigh edema. IMPRESSION: 1. No ultrasound evidence of DVT in either lower extremity. 2. Bilateral calf and thigh edema. 3. There are reactive lymph nodes in both groins node EXAM: CT LOWER EXTREMITY RT W CLINICAL HISTORY: thigh pain, skin breakdown. TECHNIQUE: Imaging Protocol: Axial computed tomography images with coronal and sagittal reformatted images were created and reviewed. CONTRAST MATERIAL: Intravenous: Omnipaque 350 Contrast volume:structured data in ml Contrast route:IV - COMPARISON: No exams were available for comparison FINDINGS: OSSEOUS: No fractures no radiographic evidence of osteomyelitis.. No lytic osseous lesions in the bones of the lower extremity. SOFT TISSUES: There is some subcutaneous edema predominantly in the lower phi and calf extending down to the ankle. There is no evidence ring-enhancing abscess. ARTICULATIONS: No evidence of knee joint effusion. No obvious hip joint effusion. No prominent ankle joint effusion IMPRESSION: Abundant subcutaneous edema at and above the ankle throughout the entire calf and extending up to the mid thigh level. There is no evidence of discrete abscess and no evidence of joint effusion. No obvious evidence of osteomyelitis. Slightly prominent lymph nodes are noted in the groin which are most probably reactive. Please note this patient had a bilateral negative DVT leg study today. Exam(s) CT ABDOMEN PELVIS W EXAM: CT ABDOMEN PELVIS W CLINICAL HISTORY: abd pain, sacral wound, scrotal skin breakdown. TECHNIQUE: Imaging Protocol: Axial computed tomography images with coronal and sagittal reformatted images were created and reviewed CONTRAST MATERIAL: Intravenous: Omnipaque 100cc Oral: None COMPARISON: CT CHEST ABD PELVIS WITH CONTRAST from 10/12/2017 FINDINGS: VISUALIZED LUNG BASES: No nodules nor pleural effusions evident. Heart size normal. No pericardial effusion. ABDOMEN: There is no ascites. LIVER: Liver is hypodense implying steatosis. However, there are no discrete focal hepatic lesions. No dilatation of intrahepatic ducts GALLBLADDER/BILIARY: No obvious gallbladder pathology. CBD is not dilated. PANCREAS: No evidence of pancreatic mass nor dilatation of the pancreatic duct. SPLEEN: Spleen is not enlarged. No obvious intrasplenic lesions. Splenic and portal veins are patent. ADRENALS: There are no significant adrenal masses. KIDNEYS:No cysts evident. No solid renal masses. No calculi nor hydronephrosis.. ABDOMINAL AORTA: Abdominal aorta is not enlarged. LYMPH NODES:There is no retroperitineal nor paraaortic adenopathy. ABDOMINAL WALL: No evidence of significant anterior abdominal wall hernia. GI: There is no evidence of bowel obstruction, free air, nor abscess. PELVIS: GI: No evidence of appendicitis.No evidence of sigmoid diverticulitis.Sigmoid is redundant. However, without evidence of obvious diverticular disease. LYMPH NODES: There is no obvious intrapelvic adenopathy. Slightly prominent lymph nodes are noted in both groins-in for inguinal regions. REPRODUCTIVE: Prostate gland is not enlarged. Seminal vesicles appear unremarkable. URINARY BLADDER: No calculi nor obvious masses evident OSSEOUS: There are healed fractures of the 10th right rib and 11th left ribs. No acute fractures identified. There are pars defects at L5 level but no associated listhesis of L5 upon S1. Lowermost images of this abdominal study reveal subcutaneous edema over the lateral left thigh, only partially included in the field of view and extending beyond the field of view. IMPRESSION: 1. Hepatic steatosis. No focal hepatic lesions identified no splenomegaly. No ascites. No intra-abdominal ascites 2. There are enlarged lymph nodes in both lower groins which are most probably related to the findings in both lower extremities (see separate studies). 3. In the field of view of this abdomen-pelvic study there is subcutaneous edema over the lateral left thigh only partially included in the field of view. 4. No evidence of osteomyelitis in the ischial tuberosities. No prominent decubitus ulcers these levels. Sacrum appears intact. Lab Data Lab results reviewed: Yes I reviewed the patient's lab results. ECG Data Attestation: I personally reviewed and interpreted this ECG (s) as follows: Interpretation: EKG shows sinus tachycardia at 126, normal axis, inferior Q waves, no STEMI, nondiagnostic EKG HPI General Mode of arrival: EMS. Date/Time Provider Initiated Documentation: 02/08/21 10:07. Limitations to Documentation: no limitations. Information obtained by: patient, RN notes reviewed and old records reviewed. HPI Narrative: Binu Bello is a 56 y/o man with history of hypertension, alcohol use disorder presenting to the emergency department with lower extremity pain and weakness. Patient is homeless and has been living in a hotel. Patient reports that he is only able to walk with a walker secondary to pain in his left leg from trauma 3 years ago. Patient reports that he has been staying in a hotel, but left 5 or 6 weeks ago. Patient reports that because he is unable to walk without a walker, and the he has been living in his car for over a month due to pain/weakness in his lower extremities that is chronic. Patient states that he does not leave his car at all, and has been defecating and urinating while seated in the car. Patient reports that he has been unable to afford his high blood pressure medications and thus has not been taking them. He states that he has new pain at the top buttocks where he has hot spots. Patient also reports pain in the back of his thighs and in his scrotum. Buttuck, thigh, and scrotal pain has been ongoing for the past month, and is different from his chronic left lower extremity pain. He denies fever, vomiting, shortness of breath, cough, numbness. Reports chronic bilateral leg weakness that is unchanged. Nursing spoke to patient's mother, who reported that has alcohol use disorder and continues to drink intermittently. She reports that patient has refused help from his family. She reports that it was recently discovered that patient has been living in his car and not walking, and at his family's urging patient presented to the emergency department. Related Data Home Medications Medication Instructions Recorded Confirmed amlodipine 5 mg PO QAM 02/09/21 02/09/21 irbesartan 150 mg PO QAM 02/09/21 02/09/21 Allergies Allergy/AdvReac Type Severity Reaction Status Date / Time lisinopril AdvReac Mild COUGH Verified 02/08/21 10:04 General Stated Complaint: GenMedical MAX: 3 Review of Systems Narrative: Constitutional: denies fevers Eyes: denies eye pain ENT: denies ear pain, dental pain, sore throat Cardiovascular: denies chest pain Respiratory: denies SOB, cough GI: denies abdominal pain, vomiting, diarrhea : denies flank pain, dysuria, reports scrotal pain MSK: denies neck pain, arthralgias, reports chronic unchanged left lower leg pain, reports new pain bilateral posterior thighs, reports sacral pain from hot spot. Denies other back pain. Skin: denies rash Neuro: denies headaches, numbness, weakness [facility] Medical History (Updated 02/10/21 @ 16:26 by Mary Hameed NP) Alcohol use disorder, moderate, in early remission, dependence (05/10/17) Allergic rhinitis (08/15/17) Closed disp spiral fx of shaft of left tibia with delayed healing Elevated liver function tests (05/10/17) Essential hypertension (05/10/17) Hepatic steatosis (02/19/18) Elevated LFTs negative thorough workup previously. Possibly ingesting alcohol once again. Hypertension (05/10/17) fair control. Macrocytic anemia (03/06/18) We will repeat CBC. likely cause alcohol abuse Peripheral polyneuropathy (05/10/17) Prediabetes (02/19/18) Rectus sheath hematoma Recurrent dislocation, left shoulder Smoker (12/26/17) currently 1 pack for week. Unstable gait (05/10/17) Vitamin D deficiency (01/26/18) Family History Father Heart disease Social History Smoking/Tobacco Use Status: Current every day Tobacco Type: cigarettes Smoking risk assessment performed?: Yes Alcohol Intake: current Alcohol Intake frequency: 3 or more drinks per day Alcohol type: beer Drug use: Occasionally Substance use type: marijuana Household members: none Housing: apartment Number of Children: 3 number of grandchildren: 8 Pets and animals: Yes Pets and animals: fish What is your relationship status?: Panel score (0-1 are the most socially isolated patients): 0 What type of physical activity do you participate in: walking Seatbelt use: sometimes Do you feel safe in your relationship?: Yes Additional Social history: patient is homeless, lives in car- unable to walk, reports no support services in place Exam Narrative Exam Narrative: Constitutional: [id number], severely disheveled, feces caked on buttocks and bilateral lower extremities, pleasant, conversing normally HENT: head atraumatic/normocephalic/normal inspection, mucous membranes moist Eyes: conjunctiva normal, sclera normal, pupils 3mm b/l Neck: no stridor, normal ROM, trachea midline Chest: normal inspection Resp: normal work of breathing, LCTAB Cardio: Tachycardic rate, normal rhythm, no murmur appreciated GI: abdomen soft, non-tender, non-distended : Normal examination of the penis, scrotum with significant skin breakdown, diffuse tenderness to palpation, no edema, no mass, no extension of skin breakdown in the inguinal areas or abdomen Back: Stage II sacral ulcers present, significant skin breakdown of both buttocks, otherwise normal inspection of the back Skin: warm, dry, normal color Neuro: alert, not altered, grossly non-focal, normal tone Ext: Significant skin breakdown bilateral posterior thighs. No fluctuant, no crepitus. Ranging bilateral hips and knees normally, no 100 next palpation of bilateral hips, bilateral knees. DP pulses intact and symmetric. There is no rash or skin changes to the bilateral lower legs. Psych: normal mood, normal affect, normal behavior Course Vital Signs Vital signs: Vital Signs Temperature 37.2 C 02/08/21 09:56 Pulse 123 H 02/08/21 09:56 Respiratory Rate 20 02/08/21 09:56 Blood Pressure 158/87 H 02/08/21 09:56 Pulse Oximetry 98 02/08/21 09:56 Temperature 37.2 C 02/08/21 09:56 Temperature Source Skin 02/08/21 09:56 Pulse 123 H 02/08/21 09:56 Respiratory Rate 20 02/08/21 09:56 Respiratory Effort Non-Labored 02/08/21 10:03 Blood Pressure 158/87 H 02/08/21 09:56 Blood Pressure Position Sitting 02/08/21 09:56 Pulse Oximetry 98 02/08/21 09:56 Oxygen Delivery Method Room Air 02/08/21 09:56 Oxygen Flow Rate 0 02/08/21 09:56 Pain Level 6 02/08/21 09:56 Lab/Test Results Lab/Test Results: 02/08/21 10:07 Blood Blood Culture - Pending 02/08/21 10:07 Blood Blood Culture - Pending
[2021-02-08] MEDS: Normal Saline 1,000 ML 1000 ML IV (10:30)
--- NOTE | 2021-02-08 10:45 | DI.US_ITS ---
Exam(s) US EXTREMITY VENOUS BI EXAM: US EXTREMITY VENOUS BI CLINICAL HISTORY: b/l leg pain, prolonged immobility TECHNIQUE: Grayscale, color, and doppler imaging of the deep venous system of both lower extremities was performed. COMPARISON: US ABDOMEN ULTRASOUND (P) from 05/12/2017 FINDINGS: There is no evidence of intraluminal thrombus and there is normal compression and augmentation demons trated within the common femoral veins, femoral veins, and popliteal veins of both lower extremities. In the calves the interrogated veins also exhibit normal compression/ augmentation properties. The greater saphenous veins also appear patent as do the saphenofemoral junctions bilaterally.. There are prominent lymph nodes in both groins which are most probably reactive given the history her e. There is also bilateral calf and thigh edema. IMPRESSION: 1. No ultrasound evidence of DVT in either lower extremity. 2. Bilateral calf and thigh edema. 3. There are reactive lymph nodes in both groins node DATA REPOSITORY:
[2021-02-08 10:47] LABS: Abs Immature Grans 0.03 10^3/uL (0.0-0.06); Absolute Basophil Count 0.01 10^3/uL (0.0-0.2); Absolute Lymphocyte Count 0.68 10^3/uL (1.2-3.4); Absolute Monocyte Count 0.87 10^3/uL (0.1-0.8); Absolute Neutrophil Count 4.73 10^3/uL (1.2-6.7); Basophils % 0.2; HCT 42.6 % (40.0-50.0); HGB 15.5 g/dL (13.5-17.5); Immature Grans % 0.5; Lymphocytes % 10.8; MCH 36.1 pg (27.0-33.0); MCHC 36.4 % (32.0-36.0); MCV 99.3 fL (80-95); MPV 8.6 fL (8.0-11.0); Monocytes % 13.8; Neutrophils % 74.7; Nucleated RBC 0 %; Platelet Count 161 10^3/uL (130-400); RBC 4.29 10^6/uL (4.36-5.78); RDW-SD 40.4 fL; WBC 6.32 10^3/uL (4.4-10.8)
[2021-02-08 10:49] LABS: Lactate 3.2 mmol/L (0.6-1.4)
[2021-02-08 11:16] LABS: ALT 25 U/L (16-63); AST 16 U/L (15-37); Albumin 2.5 g/dL (3.4-5.0); Alkaline Phosphatase 63 U/L (46-116); Anion Gap 12.6 mmol/L (3-11); BUN 15 mg/dL (7-18); Bilirubin, Total 1.4 mg/dL (0.2-1.0); CO2 22.4 mmol/L (21.0-32.0); Calcium 8.7 mg/dL (8.5-10.1); Chloride 92 mmol/L (98-107); Creatine Kinase 82 U/L (39-308); Glucose 81 mg/dL (74-106); Potassium 4.1 mmol/L (3.5-5.1); Sodium 127 mmol/L (136-145); Total Protein 6.3 g/dL (6.4-8.2)
[2021-02-08 11:19] LABS: ETHANOL BLOOD < 3.0 mg/dL (<3)
--- NOTE | 2021-02-08 11:30 | DI.CT_ITS ---
Exam(s) CT LOWER EXTREMITY RT W EXAM: CT LOWER EXTREMITY RT W CLINICAL HISTORY: thigh pain, skin breakdown. TECHNIQUE: Imaging Protocol: Axial computed tomography images with coronal and sagittal reformatted images were created and reviewed. CONTRAST MATERIAL: Intravenous: Omnipaque 350 Contrast volume:structured data in ml Contrast route:I V - COMPARISON: No exams were available for comparison FINDINGS: OSSEOUS: No fractures no radiographic evidence of osteomyelitis.. No lytic osseous lesions in the dalton zhang of the lower extremity. SOFT TISSUES: There is some subcutaneous edema predominantly in the lower phi and calf extending down to the ankle. There is no evidence ring-enhancing abscess. ARTICULATIONS: No evidence of knee joint effusion. No obvious hip joint effusion. No prominent ankl e joint effusion IMPRESSION: Abundant subcutaneous edema at and above the ankle throughout the entire calf and extending up to the mid thigh level. There is no evidence of discrete abscess and no evidence of joint effusion. No ob vious evidence of osteomyelitis. Slightly prominent lymph nodes are noted in the groin which are most probably reactive. Please note this patient had a bilateral negative DVT leg study today. RADIATION DOSE DELIVERED: Total DLP DATA REPOSITORY: All CT scans at this facility are submitted to the National Radiology Data Registry (NRDR) Dose Index Registry (DIR) with the [employer] (ACR). RADIATION OPTIMIZATION: All CT scans at this facility use at least one of these dose optimization te chniques: automated exposure control; mA and/or kV adjustment per patient size (includes targeted exa ms where dose is matched to clinical indication); or iterative reconstruction.
--- NOTE | 2021-02-08 12:13 | DI.CT_ITS ---
Exam(s) CT ABDOMEN PELVIS W EXAM: CT ABDOMEN PELVIS W CLINICAL HISTORY: abd pain, sacral wound, scrotal skin breakdown. TECHNIQUE: Imaging Protocol: Axial computed tomography images with coronal and sagittal reformatted images were created and reviewed CONTRAST MATERIAL: Intravenous: Omnipaque 100cc Oral: None COMPARISON: CT CHEST ABD PELVIS WITH CONTRAST from 10/12/2017 FINDINGS: VISUALIZED LUNG BASES: No nodules nor pleural effusions evident. Heart size normal. No pericardial effusion. ABDOMEN: There is no ascites. LIVER: Liver is hypodense implying steatosis. However, there are no discrete focal hepatic lesions. No dilatation of intrahepatic ducts GALLBLADDER/BILIARY: No obvious gallbladder pathology. CBD is not dilated. PANCREAS: No evidence of pancreatic mass nor dilatation of the pancreatic duct. SPLEEN: Spleen is not enlarged. No obvious intrasplenic lesions. Splenic and portal veins are paten t. ADRENALS: There are no significant adrenal masses. KIDNEYS:No cysts evident. No solid renal masses. No calculi nor hydronephrosis.. ABDOMINAL AORTA: Abdominal aorta is not enlarged. LYMPH NODES:There is no retroperitineal nor paraaortic adenopathy. ABDOMINAL WALL: No evidence of significant anterior abdominal wall hernia. GI: There is no evidence of bowel obstruction, free air, nor abscess. PELVIS: GI: No evidence of appendicitis.No evidence of sigmoid diverticulitis.Sigmoid is redundant. However, without evidence of obvious diverticular disease. LYMPH NODES: There is no obvious intrapelvic adenopathy. Slightly prominent lymph nodes are noted in both groins-in for inguinal regions. REPRODUCTIVE: Prostate gland is not enlarged. Seminal vesicles appear unremarkable. URINARY BLADDER: No calculi nor obvious masses evident OSSEOUS: There are healed fractures of the 10th right rib and 11th left ribs. No acute fractures mitul ntified. There are pars defects at L5 level but no associated listhesis of L5 upon S1. Lowermost images of this abdominal study reveal subcutaneous edema over the lateral left thigh, only partially included in the field of view and extending beyond the field of view. IMPRESSION: 1. Hepatic steatosis. No focal hepatic lesions identified no splenomegaly. No ascites. No intra-ab dominal ascites 2. There are enlarged lymph nodes in both lower groins which are most probably related to the finding s in both lower extremities (see separate studies). 3. In the field of view of this abdomen-pelvic study there is subcutaneous edema over the lateral lef t thigh only partially included in the field of view. 4. No evidence of osteomyelitis in the ischial tuberosities. No prominent decubitus ulcers these lev els. Sacrum appears intact. RADIATION DOSE DELIVERED: Total DLP DATA REPOSITORY: All CT scans at this facility are submitted to the National Radiology Data Registry (NRDR) Dose Index Registry (DIR) with the [employer] (ACR). RADIATION OPTIMIZATION: All CT scans at this facility use at least one of these dose optimization te chniques: automated exposure control; mA and/or kV adjustment per patient size (includes targeted exa ms where dose is matched to clinical indication); or iterative reconstruction.
[2021-02-08] MEDS: Normal Saline - Diluent 50 ML VIAL IV (12:14)
[2021-02-08] MEDS: Omnipaque 350 MG/ML 100 ML BTL IJ (12:14)
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
[2021-02-08 12:55] LABS: Bilirubin Negative (Negative); Blood Negative (Negative); Clarity Clear (Clear); Glucose Negative (Negative); Ketones 15 mg/dL (Negative); Leukocyte Esterase Negative (Negative); Nitrite Negative (Negative); pH 6.5 (5-8)
[2021-02-08] MEDS: cefTRIAXone 2 GM/50 ML BAG IVPB (13:09)
[2021-02-08] MEDS: Acetaminophen 325 MG TAB 650 MG PO (13:25)
[2021-02-08] MEDS: VANCOMYCIN/WATER (PEG) 2 GM/400 ML BAG IVPB (13:31)
[2021-02-08 14:09] LABS: Source Nasal/Nares
[2021-02-08 16:32] LABS: Lactate 1.3 mmol/L (0.6-1.4)
[2021-02-08] MEDS: Furosemide 20 MG/2 ML VIAL IVP (16:34)
[2021-02-08] MEDS: Normal Saline Flush 10 ML SYR IVP (16:34)
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
[2021-02-08] MEDS: traMADol 50 MG TAB PO (19:30)
[2021-02-08 19:51] LABS: ALT 21 U/L (16-63); AST 19 U/L (15-37); Albumin 2.2 g/dL (3.4-5.0); Alkaline Phosphatase 56 U/L (46-116); Anion Gap 10.6 mmol/L (3-11); BUN 13 mg/dL (7-18); CO2 23.4 mmol/L (21.0-32.0); Calcium 8.5 mg/dL (8.5-10.1); Chloride 98 mmol/L (98-107); Glucose 94 mg/dL (74-106); Potassium 3.9 mmol/L (3.5-5.1); Sodium 132 mmol/L (136-145); Total Protein 5.7 g/dL (6.4-8.2)
[2021-02-08 21:15] LABS: COVID-19 PCR Negative (Negative)
[2021-02-09] MEDS: traMADol 50 MG TAB PO (06:16)
[2021-02-09] MEDS: Lidocaine 2% Jelly 6 ML SYR TP (06:16)
[2021-02-09 06:41] VITALS: BP 122/78; PULSE 97; RESP 18; TEMP 37; O2SAT 97
[2021-02-09 07:02] LABS: Abs Immature Grans 0.03 10^3/uL (0.0-0.06); Absolute Basophil Count 0.02 10^3/uL (0.0-0.2); Absolute Eosinophil Count 0.03 10^3/uL (0.0-0.7); Absolute Lymphocyte Count 1.07 10^3/uL (1.2-3.4); Basophils % 0.4; Eosinophils % 0.6; HCT 37.3 % (40.0-50.0); HGB 13.1 g/dL (13.5-17.5); Immature Grans % 0.6; Lymphocytes % 22.1; MCH 35.6 pg (27.0-33.0); MCHC 35.1 % (32.0-36.0); MCV 101.4 fL (80-95); MPV 8.9 fL (8.0-11.0); Monocytes % 12.4; Neutrophils % 63.9; Nucleated RBC 0 %; Platelet Count 155 10^3/uL (130-400); RBC 3.68 10^6/uL (4.36-5.78); RDW 11.1 % (11.8-14.1); RDW-SD 41.1 fL; WBC 4.85 10^3/uL (4.4-10.8)
[2021-02-09 07:25] LABS: Anion Gap 10.2 mmol/L (3-11); BUN 14 mg/dL (7-18); CO2 24.8 mmol/L (21.0-32.0); CREATININE 0.9 mg/dL (0.70-1.30); Calcium 8.3 mg/dL (8.5-10.1); Chloride 100 mmol/L (98-107); Glucose 81 mg/dL (74-106); Potassium 3.4 mmol/L (3.5-5.1); Sodium 135 mmol/L (136-145)
[2021-02-09] MEDS: Furosemide 20 MG/2 ML VIAL IVP (07:55)
[2021-02-09] MEDS: Normal Saline Flush 10 ML SYR IVP ×4 (07:55→14:32)
[2021-02-09] MEDS: MORPHine 2 MG/ML SYR IVP ×2 (09:56→13:51)
--- NOTE | 2021-02-09 10:20 | IN_ITS ---
Date of service: 02/09/21 Time of Service: 10:20 PT Notes Visit Reasons: Skin Wound, Ambulatory Dysfunction Physical Therapy Inpatient Initial Evaluation Date: 02/09/2021 Referring Doctor: Carmen Hair NP PT Orders: PT CONSULT: Eval/Treat. PRECAUTIONS: Fall. Standard. Activity as tolerated. High risk for skin breakdown. Patient Profile/Admitting Diagnosis: Guille is a 60-year-old male with history of ETOH abuse disorder who presented to the ED on 02/08/2021 with bilateral lower extremity pain and weakness. Patient is diagnosed with wounds and injuries to posterior thigh and buttocks, ambulatory dysfunction, hyponatremia, hand bilateral lower extremity edema. PMHX: Medical History (Updated 02/09/21 @ 08:41 by Carmen Hair NP) Alcohol use disorder, moderate, in early remission, dependence (05/10/17) Allergic rhinitis (08/15/17) Closed disp spiral fx of shaft of left tibia with delayed healing Elevated liver function tests (05/10/17) Essential hypertension (05/10/17) Hepatic steatosis (02/19/18) Elevated LFTs negative thorough workup previously. Possibly ingesting alcohol once again. Hypertension (05/10/17) fair control. Macrocytic anemia (03/06/18) We will repeat CBC. likely cause alcohol abuse Peripheral polyneuropathy (05/10/17) Prediabetes (02/19/18) Rectus sheath hematoma Recurrent dislocation, left shoulder Smoker (12/26/17) currently 1 pack for week. Unstable gait (05/10/17) Vitamin D deficiency (01/26/18) Social History/Home Situation: Has been living in his car for the past 5 to 6 weeks. Does short distances with bariatric FWW. Lived in a hotel previously. Has family but is estranged. Equipment Owned/DME: FWW, bariatric FWW Subjective: Patient reports that he has three walkers but one broke. He uses a bariatric walker and he seems to be getting more stability with it. Open to going to a facility until he is able to achieve independent level with an assistive device. Objective: General Observation: Skin injury seen on posterior thigh, gluteal, sacral, and lower lumbar areas bilaterally. Skin integirty to B proximal legs decreased. Increased shakiness with weight bearing, most pronounced in trunk and B legs. Mental Status: Alert and oriented as to person, place, time, and purpose. Able to pay attention, focus, and respond appropriately. Pain: 5/10 in B thighs and gluteal areas ROM: Right Upper Extremity: Shoulder Flexion WFL. Shoulder abduction WFL. Elbow flexion WFL. Wrist flexion WFL. Functional opening and closing of hand WFL. Left Upper Extremity: Shoulder Flexion WFL. Shoulder abduction WFL. Elbow flexion WFL. Wrist flexion WFL. Functional opening and closing of hand WFL. Right Lower Extremity: Hip flexion allows up to 130 degrees. Hip extension about 10 degrees. Hip abduction WFL. Knee flexion up to 90 degrees onlyL. Ankle dorsiflexion to neutral only. Ankle plantarflexion WFL. Left Lower Extremity: Hip flexion allows up to 130 degrees. Hip extension about 10 degrees. Hip abduction WFL. Knee flexion up to 90 degrees onlyL. Ankle dorsiflexion to neutral only. Ankle plantarflexion WFL. Strength: Right Upper Extremity: Shoulder flexors 4-/5. Shoulder abductors 4-/5. Elbow flexors 4-/5. Elbow extensors 4-/5. Synthetic Gem Press Operator strong. Left Upper Extremity: Shoulder flexors 4-/5. Shoulder abductors 4-/5. Elbow flexors 4-/5. Elbow extensors 4-/5. Synthetic Gem Press Operator strong. Right Lower Extremity: Hip flexors 3-/5. Hip extensors 3-/5. Hip abductors 3-/5. Knee flexors 3-/5. Knee extensors 3+/5. Ankle dorsiflexors 3-/5. Ankle plantarflexors 4-/5. Left Lower Extremity: Hip flexors 3-/5. Hip extensors 3-/5. Hip abductors 3-/5. Knee flexors 3-/5. Knee extensors 3+/5. Ankle dorsiflexors 3-/5. Ankle plantarflexors 4-/5. Bed Mobility/Transfers: Rolling standby assist Sit to supine standby assist Sit to stand contact-guard assist with minimal cues for safe/correct technique Stand to sit contact-guard assist with minimal cues for safe/correct technique Bed to bedside contact-guard assist with minimal cues for safe/correct technique Bedside commode to bed contact-guard assist with minimal cues for safe/correct technique Bed to reclining chair contact-guard assist with minimal cues for safe/correct technique Reclining chair to bed contact-guard assist with minimal cues for safe/correct technique Gait: Instructed patient with level surface ambulation of 10 feet requiring contact-guard assist. Supriya decreased. Step height decreased. Step length decreased. Inside parallel bars patient was able to take 20 steps for turns while holding to the lateral borders requiring standby assist. Appears shaky with body tremors mainly in the trunk and the bilateral lower extremities. Balance: Static Sitting: Normal Dynamic Sitting: Normal Static Standing: Fair Dynamic Standing: Fair Special Tests: Mobility Limitations Standardized Measure [facility] AM-PAC 6 clicks Basic Mobility Inpatient Short Form: Raw Score: 18 CMS Score: 47% deficit 4-Stage balance Test: Unsafe to be performed at this time. Informed Consent/Education: Patient was instructed in purpose of PT consult and plan of care. Agreeable to proceed with established PT POC to achieve personal goals. Assessment: Lacking full range of motion in B hips, knees, and ankles. Symmetrically weak in B LE. Unable to do 4-stage balance test due to significant instability. At high risk for falls due to inability to perform any of the test positions for the 4-stage Balance Test. Tremors may be from long-term alcohol consumption/abuse. Patient is not able to thrive alone at this time due to significant functional mobility decline and high fall risk and will benefit from placement in a facility for short term rehabilitation. Patient presents with clinical signs and symptoms consistent with current/admitting diagnoses that have resulted to mobility limitations, gait instability, generalized weakness, and overall ADL decline as demonstrated by the following impairment level findings: 1. Decreased strength to B UE/LE major muscle groups 2. Impaired sitting/standing balance 3. Impaired activity tolerance 4. Limitation of joint range of motion in B LE joints 5. Shortness of breath 6. Skin injury to bilatersal buttocks and thighs Impairments are contributing to the following functional limitations: 1. Decline in bed mobility skills 2. Decline in transfer skills 3. Difficulty with ambulation without assistive device and physical assistance 4. Increased completion time for mobility ADL performance 5. Increased risk for falls Patient is assessed as a 08886 complexity based on the following: History: -year-old with past medical history as indicated above Examination: Demonstrable impairment in strength, balance, and mobility level with underlying impairments and functional limitations as exhibited above as well as deficit score of % utilizing the [facility] Mobility Inpatient Short Form Presentation: Decision Makin moderate complexity Goals: Goals X1 week 1. Supine-Sit independent 2. Sit-Supine independent 3. Sit-Stand independent 4. Stand-Sit independent with FWW 5. Bed-Chair independent with FWW 6. Chair-Bed independent with FWW 7. Supervision gait on level surface with use of FWW for at least 200 feet wi thout report of pain nor dyspnea 8. Fair static and dynamic standing balance/tolerance Plan of Care/Treatment Plan: 1-2x/day, 7 days/week x 1 week. Plan of care has been reviewed with the [facility] providing the service under Physical Therapy direction. Initiate Physical Therapy intervention for pain management as needed, strengthening, bed mobility, transfers, gait, stairs, balance training, and use of assistive device. DISCHARGE RECOMMENDATIONS: Patient will benefit from assisted facility placement for continued skilled physical therapy services in order to progress mobility level, strength, and balance in preparation for a safe discharge to home. TREATMENT CODE/TIME: 83367 x 20 minutes, 98749 x 20 minutes beginning at 10:20 AM. Thank you for the opportunity to participate in the care of this patient. Lisa Catalan PT, DPT, CLT [facility] [place], [place]
--- NOTE | 2021-02-09 10:58 | OT.INIE ---
Occupational Therapy Notes Inpatient Occupational Therapy Evaluation Date: 02/09/21 Referring Doctor: Kris Rogers MD OT Orders: Non Urgent Precautions: Fall, standard, full PATIENT PROFILE/ADMITTING DIAGNOSIS: Pt is a 56 year old male who was admitted through the ED after being brought by EMS for the following dx hyponatremia, (B) LE edema, wounds and injuries, ambulatory dysfunction, laceration of scalp, ataxia, hepatic steatosis, HTN, elevated liver function, macrocytic anemia, polyneuropathy, alcohol use disorder, allergic rhinitis. Past Medical History: Alcohol use disorder, moderate, in early remission, dependence (05/10/17) Allergic rhinitis (08/15/17) Closed disp spiral fx of shaft of left tibia with delayed healing Elevated liver function tests (05/10/17) Essential hypertension (05/10/17) Hepatic steatosis (02/19/18) Elevated LFTs negative thorough workup previously. Possibly ingesting alcohol once again. Hypertension (05/10/17) fair control. Macrocytic anemia (03/06/18) We will repeat CBC. likely cause alcohol abuse Peripheral polyneuropathy (05/10/17) Prediabetes (02/19/18) Rectus sheath hematoma Recurrent dislocation, left shoulder Smoker (12/26/17) currently 1 pack for week. Unstable gait (05/10/17) Vitamin D deficiency (01/26/18) Social History/Home Situation: Pts quality of life is very poor. He states that about 2 months ago he left the hotel in [place] due to an issue with the staff accusing him of not putting his room card in the right place. He states that he decided he would leave and moved into his car. When he moved into his car he would park it in aparking lot where he could get wifi and states that he rarely got out of his car as his legs are weak. He utilizes a FWW for functional mobility which he states he just wants a wheelchair so he can be more mobile. Pt states that since he has lived in his car he eats 1 meal a day if he can afford it. He states that he showers in the rain and hasn't actually been washed up for probably 6 months due to his inability to care for himself and not able to easily access a bathroom that his FWW can fit into. He notes that he goes to the bathroom in his car or sits in the car and opens the door to go. He has poor oral hygiene and decreased ability to care for himself due to current living situation. He notes that he has family in the area but that his moms home is not accessible which makes it hard for him. He has poor family and social supports. Equipment owned/DME: None SUBJECTIVE: Pt was sitting in bed when OT arrived, he notes that he is not sure where he will end up but he knows that he needs help. OBJECTIVE: General Observation: Pleasant and agreeable to OT session, wounds in jesica area and on legs, feet with wounds and skin breakdown Mental Status: A&Ox3 Pain: 6-02/06 ROM: RUE AROM WFL L UE AROM WFL STRENGTH: RUE 5/5 throughout LUE 5/5 throughout FUNCTIONAL MOBILITY/ADLS: BATHING pt denies DRESSING sitting in bed Dressing UE (I) don and [facility] gown Dressing LE Max (A)d/t pain in wounds on legs GROOMING pt denies TOILETING incontinent, wounds in jesica area EATING (I) BALANCE: Static sitting Normal Dynamic Sitting Normal SPECIAL TESTS: Daily Activity Limitations Standardized Measure [facility] AM -PAC ?6 clicks? Daily Activity Inpatient Short Form: Raw score: 11 Standardized score: 29.04 CMS score: 74.70% INFORMED CONSENT/EDUCATION: Pt instructed in purpose of OT Consult and plan of care. ASSESSMENT: Patient is a 56-year-old male referred to occupational therapy services with diagnosis of hyponatremia, (B) LE edema, wounds and injuries, ambulatory dysfunction, laceration of scalp, ataxia, hepatic steatosis, HTN, elevated liver function, macrocytic anemia, polyneuropathy, alcohol use disorder, allergic rhinitis. Patient presents with clinical signs and symptoms consistent with dx, as demonstrated by the following impairment level findings/ functional limitations: Impairments in functional mobility required for ADL performance, decreased LE function, decreased LE functional activity tolerance, basic needs not met prior to arrival, inability to toilet (I), inability to perform dressing and bathing, inability to functionally walk or transfer. Pts current living situation is not safe or providing him with his basic needs. He is declining medically due to his inability to have food, residential and water. OT recommends that go SNF vs. to a home environment with HH services. [facility] score 11 Patient is assessed as a high 34616 complexity based on the following: History: see above Examination: see functional limitations as noted above Presentation: evolving Decision Making: AMPAC score 11 GOALS Goals x1 week 1. Grooming sitting in chair (I) 2. Dressing sitting in chair (I) 3. Bathing sitting in chair (I) 4. Toileting- (I) on commode 5. Eating (I) PLAN OF CARE/TREATMENT PLAN: 1x/day, 5 days/ week x 1week Initiate Occupational Therapy Services for bathing, dressing, grooming, toileting, eating, transfer training. DISCHARGE RECOMMENDATIONS SNF vs. home with services. TREATMENT TIME/MINUTES/CODES 74783, 72120, 30 minutes (08:50) Joyce Jacobs OTR/L [facility]
--- NOTE | 2021-02-09 11:17 | WOUNDCONS ---
- If Service Date Differs Date of service: 02/09/21 Time of Service: 11:17 Wound Initial Evaluation Narrative: Pt agreeable to wound consult and photos, consent signed. H&P, labs, other providers noted reviewed. Per Pt he had been living in his car, for couple months, unable to ambulate, stooling and urinating on himself. As a result he has acquired severe IAD on bilateral buttocks, bilateral posterior thighs, and jesica area. Skin erosion noted from AID. Area of dried leathery skin noted to bilateral buttocks, see photos below, ? probable pressure component. bright red borders on IAD , suspect fungal component as well. Important to maintain a balanced pH of skin, recommend using wound cleanser with surfactant vs soap and water. Also recommend David's paste (Clotrimazole 1%, Zinc oxide 20%, Vitamin A&D Ointment equal parts) applied TID and PRN with incontinent episodes. - Wound Bilateral Buttocks Wound Type: Other (IAD), Partial Thickness Bilateral Posterior thighs Wound Type: Other (IAD), Partial Thickness Jesica Area Wound Type: Other (IAD), Partial Thickness - Pain Pain Level: 7 Pain Scale Used: Adult (Painful when lifting legs off pad, also at rest 4/10) - Treatment/Dressing Change Cleanse With: Cleanser with Surfactant - Recomendation Recomendation:: Cleanse affected areas with integrity cleanser. Gently pat dry. Apply David's paste (clotrimazole 1%\zinc oxide 20%\Vitamin A & D ointment equal parts) TID and PRN. Reposition Q2H. Physcian/Nurse Practioner Notified: Yes (Yoseph)
[2021-02-09] MEDS: cefTRIAXone 2 GM/50 ML BAG IVPB (12:48)
[2021-02-09] MEDS: Gadoterate meglumine 20 ML VIAL IVP (14:31)
--- NOTE | 2021-02-09 15:00 | DI.MRI_ITS ---
Exam(s) MR LUMBAR SPINE WO/W EXAM: MR LUMBAR SPINE WO/W CLINICAL HISTORY: back pain, fecal incontinence, ambulatory dysfunct TECHNIQUE: Multiplanar multisequence MRI of the Lumbar Spine was performed. CONTRAST MATERIAL: IV Contrast: 20 mL of Dotarem contrast administered. COMPARISON: CR,XR XR SHOULDER RT COMP POST REDUC from 06/30/[address] ABDOMEN PELVIS W from 02/08/[address] LOWER EXTREMITY RT W from 02/08/[address] ABDOMEN PELVIS W from 02/08/[address] LOWER EXTREMITY LT W from 02/08/[address] LOWER EXTREMITY LT W from 02/08/[address] LOWER EXTREMITY RT W from 02/08/2021 FINDINGS: The conus medullaris appears normal. The marrow signal is normal.. There is no evidence of abnormal marrow enhancement. There is no evidence of osteomyelitis or discitis. There is no evidence of epid ural abscess. There is no abnormal soft tissue enhancement. Aorta is normal in diameter. The T12-L1 through L3-4 disc are unremarkable. There is no neural foraminal narrowing or central chester l stenosis at these levels. The L4-5 disc shows mild posterior bulging. There is no significant centr al canal stenosis or neural foraminal narrowing. The L5-S1 disc shows minimal bulging. There are endp late osteophytes which project mildly laterally. There is bilateral L5 spondylolysis but no significa nt spondylolisthesis. There is mild neural foraminal encroachment by facet osteophytes on the left. IMPRESSION: No evidence of osteomyelitis, discitis or soft tissue abscess. Degenerative changes of the lower lumbar spine with mild left neural foraminal narrowing at L5-S1. Bi lateral L5 spondylolysis without spondylolisthesis. DATA REPOSITORY:
--- NOTE | 2021-02-09 15:06 | PHA.REVIEW ---
Pharmacy Admission Review - Admission Clinical Review (Last Reviewed 02/09/21 @ 07:45 by Carmen Hair NP) Hyponatremia (Acute) Bilateral edema of lower extremity (Acute) Discharge planning issues (Acute) DVT prophylaxis (Acute) Wounds and injuries (Acute) Ambulatory dysfunction (Acute) lisinopril Adverse Reaction (Mild, Verified 02/08/21 10:04) COUGH Resuscitation Status Full Code Height 5 ft 10 in Weight 101.786 kg - Renal Dosing Renal Dosing: BUN 14 mg/dL (7-18) 02/09/21 06:35 Creatinine 0.9 mg/dL (0.70-1.30) 02/09/21 06:35 Medications needing adjustments: Reviewed (Crcl ~109.5 mL/min using adjusted body weight, current meds okay.) - Anticoagulation Anticoagulation: Hgb 13.1 g/dL (13.5-17.5) L D 02/09/21 06:35 Hct 37.3 % (40.0-50.0) L 02/09/21 06:35 Plt Count 155 10^3/uL (130-400) 02/09/21 06:35 Creatinine 0.9 mg/dL (0.70-1.30) 02/09/21 06:35 DVT Prophylaxis: Reviewed (TEDs/SCDs ordered, chemical prophylaxis on hold per H&P) Therapeutic Anticoagulation: N/A - Opiate Usage Evaluate Pain Scale/Pains Meds: Reviewed Scheduled Bowel Reg ordered if on Opiates?: No (has prn meds ordered) - Relevant Labs Sodium 135 mmol/L (136-145) L 02/09/21 06:35 Potassium 3.4 mmol/L (3.5-5.1) L 02/09/21 06:35 Chloride 100 mmol/L (98-107) 02/09/21 06:35 Magnesium 2.0 mg/dL (1.8-2.4) 02/09/21 06:35 Electrolytes, C-Reactive P, ESR: Intervened (sodium and K+ a little low, will mention to provider) - DM Control DM Control: Glucose 81 mg/dL (74-106) 02/09/21 06:35 Insulin Dosing: N/A - Heart Failure/UT EF%, LOU's, B-Blockers, Diuretics: N/A - BP Control BP Control: Blood Pressure 122/78 If elevated: Reviewed (Was elevated on admission, has been within normal limits today. Has furosemide ordered.) - Qtc Review If Elevated: N/A (QTc 465 on admission) - IV to PO Switch IV Medications: Reviewed - Home Meds Home Med List reviewed: Reviewed (per ED note pt was not taking home BP meds due to cost) Relevent Home Meds Not ordered & why?: irbesartan, amlodipine - Current meds Current Medication Order Review: Reviewed - Comments Comments/Follow Ups: Watch VS, labs, for micro results and for med changes. Antibiotic Activity - Pharmacy Antibiotic Review Pharmacy Antibiotic Activity: Reviewed, no change (ceftriaxone continues (day 2), blood cultures pending)
--- NOTE | 2021-02-09 15:54 | PT.INTREAT ---
Date of service: 02/09/21 Time of Service: 15:54 PT Notes Visit Reasons: Skin Wound, Ambulatory Dysfunction Physical Therapy Inpatient Treatment Note Date: 02/09/2021 PRECAUTIONS: Fall. Standard. Activity as tolerated. High risk for skin breakdown. Subjective: Tired from today's activities and testing. Agreeable to afternoon session. Feels a bit more shaky than he did this morning. Feels more secure with using the bariatric FWW. Objective: General Observation: Skin injury seen on posterior thigh, gluteal, sacral, and lower lumbar areas bilaterally. Skin integirty to B proximal legs decreased. Increased shakiness with weight bearing, most pronounced in trunk and B legs. Mental Status: Alert and oriented as to person, place, time, and purpose. Able to pay attention, focus, and respond appropriately. Pain: 5/10 in B thighs and gluteal areas Bed Mobility/Transfers: Supine to sit SBA with HOB at 30 degrees Sit to stand contact-guard assist with minimal cues for safe/correct technique Stand to sit contact-guard assist with minimal cues for safe/correct technique Gait: Guided patient through level surface ambulation of 80 feet / 80 feet using bariatric front wheel walker with full weight bearing requiring contact-guard assist with occasional minimal assist to prevent LOB as patient is more tired. Wide BROCK. 1 minor L OB that patient was able to self-correct right away. Minimal path deviation seen. Continues to be unsteady. Decreased dorsiflexion in B feet. THERA EX: Inside parallel bars, initiated combined strengthening exercises and balance retraining utilizing 2.5 pound ankle weights working attenuated/high stepping with each limb advancement while holding onto bilateral bars from end to end x 16-12 steps each trip for 2 trips. Same distance was covered with patient performing exaggerated sidestepping with the left leading and then the right needing from end to end of parallel bars or 16-12 steps each trip for 2 trips. Observed mild shortness of breath that resolved with rest. Balance: Static Sitting: Normal Dynamic Sitting: Normal Static Standing: Fair Dynamic Standing: Fair Assessment: Requires assist of one caregiver for all mobility ADL performance at this time using the bariatric FWW. Performed more for this session despite fatigue from MRI testing and pain from skin injury. CWS nurse is managing wounds. Patient may benefit from pressure-relieving cushion while seated on reclining chair to facilitate better healing time and prevent further skin breakdown. Has good prognosis for achieving functional independence due to young age, good motivation, and independent prior level of function before skin issue commenced. Will require short-term rehabilitation for continued mobility progression. DISCHARGE RECOMMENDATIONS: Patient will benefit from detention facility placement for continued physical therapy services in order to progress mobility level, strength, and balance in preparation for a safe discharge to home. TREATMENT CODE/TIME: 95117 x 30 minutes, 05119 x 26 minutes beginning at 15:54 PM.
[2021-02-09 16:40] VITALS: BP 132/82; PULSE 95; RESP 18; TEMP 37.2; O2SAT 96
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
[2021-02-09] MEDS: Nicotine 21 MG/24 HR PATCH TD (18:20)
--- NOTE | 2021-02-09 18:28 | INITIAL_ITS ---
- If Service Date Differs Date of service: 02/09/21 Time of Service: 18:28 Care Management Initial Assess REASON FOR HOSPITALIZATION:: skin wound, ambulatory disfunction PAST MEDICAL HISTORY/PAST SURGICAL HISTORY:: Medical History. Alcohol use disorder, moderate, in early remission, dependence (05/10/17). Allergic rhinitis (08/15/17). Closed disp spiral fx of shaft of left tibia with delayed healing. Elevated liver function tests (05/10/17). Essential hypertension (05/10/17). Hepatic steatosis (02/19/18). Elevated LFTs negative thorough workup previously. Possibly ingesting alcohol once again. Hypertension (05/10/17). fair control. Macrocytic anemia (03/06/18). We will repeat CBC. likely cause alcohol abuse. Peripheral polyneuropathy (05/10/17). Prediabetes (02/19/18). Rectus sheath hematoma. Recurrent dislocation, left shoulder. Smoker (12/26/17). currently 1 pack for week. Unstable gait (05/10/17). Vitamin D deficiency (01/26/18) PREVIOUS FUNCTIONAL STATUS/SOCIAL/FAMILY SUPPORTS:: Binu has been living in his car, as he does not currently have a residence. 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 He stated that he broke his leg at work several years ago, and has had difficulty walking since that time. He is currently disabled. He has three children, who he does not have a relationship with. His mother and brother both live nearby and are supportive. He reports that he does not have any supports in the community, besides family at this time. CURRENT FUNCTIONAL STATUS:: Binu was lying in bed when CM met with him. His mother and brother were present. He reported that he has been busy today, and is tired. He stated that he was able to stand and walk, with support, today. CM discussed his discharge plan, which will be guided by recommendations made by MD, PT and OT. At this time, PT is recommending SNF for rehab. CM will provide options for Binu and send referrals, if he is agreeable to this plan. CM will discuss this further tomorrow. CM will continue to follow. ADVANCE DIRECTIVES:: None on file, CM will offer forms. Has patient been provided with info about the portal/API?: Yes Did the patient sign up for the portal?: Yes (active) CODE STATUS:: Full Code INSURANCE COVERAGE / FINANCIAL ISSUES:: MCR/ Financial assist. Pt states that he has [employer], CM will verify. CURRENT HOME/COMMUNITY SERVICES/EQUIPMENT:: No current services. PRIMARY CARE PHYSICIAN:: Elvin Pascual POTENTIAL DISCHARGE NEEDS:: Evaluations for further needs, follow up appointments, possible SNF placement. PATIENT/FAMILY EDUCATION NEEDS:: Review discharge instructions regarding activity levels and medications, discussion of self care needs and goals of care. ANTICIPATED BARRIERS TO DISCHARGE:: None identified at this time. TRANSPORTATION:: Via w/c van vs private vehicle. PLAN:: Per report, PT and provider both recommend SNF placement at this time to gain strength and progress mobility level in order to return home. KATHE will connect Binu with resources in the community for housing. His tranpsportation will depend on his disposition. He will follow up with his PCP and discharge plan of care. CM will continue to follow.
--- NOTE | 2021-02-09 18:32 | POCOE_ITS ---
Date of service: 02/09/21 Time of Service: 18:32 History of Present Illness History of Present Illness Chief Complaint: Severely overgrown toenails and chronic tinea affecting both feet Narrative: 56-year-old male was admitted with multiple wounds on his buttock and thighs, who has been living in his car for approximately a year and no longer ambulates in need of podiatric management. He is awake and alert lying in his bed when I entered the room. He is cooperative. FOR[facility]LY [facility] Medical History Alcohol use disorder, moderate, in early remission, dependence (05/10/17) Allergic rhinitis (08/15/17) Closed disp spiral fx of shaft of left tibia with delayed healing Elevated liver function tests (05/10/17) Essential hypertension (05/10/17) Hepatic steatosis (02/19/18) Elevated LFTs negative thorough workup previously. Possibly ingesting alcohol once again. Hypertension (05/10/17) fair control. Macrocytic anemia (03/06/18) We will repeat CBC. likely cause alcohol abuse Peripheral polyneuropathy (05/10/17) Prediabetes (02/19/18) Rectus sheath hematoma Recurrent dislocation, left shoulder Smoker (12/26/17) currently 1 pack for week. Unstable gait (05/10/17) Vitamin D deficiency (01/26/18) Family History Father Heart disease Social History Smoking/Tobacco Use Status: Current every day Tobacco Type: cigarettes Smoking risk assessment performed?: Yes Alcohol Intake: current Alcohol Intake frequency: 3 or more drinks per day Alcohol type: beer Drug use: Occasionally Substance use type: marijuana Household members: none Housing: apartment Number of Children: 3 number of grandchildren: 8 Pets and animals: Yes Pets and animals: fish What is your relationship status?: Panel score (0-1 are the most socially isolated patients): 0 What type of physical activity do you participate in: walking Seatbelt use: sometimes Do you feel safe in your relationship?: Yes Additional Social history: patient is homeless, lives in car- unable to walk, reports no support services in place Exam Narrative Exam Narrative: DP and PT pulses are physically palpable manually at the ankle graded plus 1 out of 4 bilaterally, capillary refills under 3 seconds to all toes. Trace edema appreciated. He did have negative venous Doppler studies for DVT prior to admission. His calves are soft nontender. Toenails as a fungal in nature being thick, yellowed, dystrophic, hypertrophic, elongated and gryphotic in need of debridement. Several of the toenails show onycholysis. No active drainage is appreciated no erythema or cellulitis noted. He appears to have a moccasin style tinea with webspace involvement bilaterally. No open wounds were appreciated. Muscle groups were 5 out of 5 although deconditioned Skeletal exam appeared grossly benign. No heat or swelling was identified. Range of motion decreased across the MPJ and ankles bilaterally. Not painful in nature. Neurological exam: His toes were downgoing he appears to respond to discomfort. Impressions: Tinea pedis with xerosis Onychomycosis with onychogryphosis Plan: Manually and electrically debrided all nails 1 through 5 bilaterally to patient tolerance. I will add topical ketoconazole to both feet for tinea pedis. I do not anticipate any significant issues at this time but I will be happy to return for follow-up if needed. Results Last Vital Signs Temp 37.0 C 02/09/21 06:41 Pulse 97 H 02/09/21 06:41 Resp 18 02/09/21 06:41 BP 122/78 02/09/21 06:41 Pulse Ox 97 02/09/21 06:41 Labs Result diagrams: 02/09/21 06:35 02/09/21 06:35 Labs: Laboratory Results - last 24 hr 02/08/21 02/08/21 02/09/21 14:05 16:26 06:35 WBC RBC Hgb Hct MCV MCH MCHC RDW Plt Count MPV Immature Gran % Neutrophils % Lymphocytes % Monocytes % Eosinophils % Basophils % Nucleated RBC % Absolute Neutrophils Absolute Lymphocytes Absolute Monocytes Absolute Eosinophils Absolute Basophils Sodium 132 L 135 L Potassium 3.9 3.4 L Chloride 98 100 Carbon Dioxide 23.4 24.8 Anion Gap 10.6 10.2 BUN 13 14 Creatinine 1.0 0.9 Estimated GFR/1.73 m2 >= 60.00 >= 60.00 Glucose 94 81 Calcium 8.5 8.3 L Magnesium 2.0 Total Bilirubin 1.0 AST 19 ALT 21 Alkaline Phosphatase 56 Total Protein 5.7 L Albumin 2.2 L SARS-CoV-2 (PCR) Negative 02/09/21 06:35 WBC 4.85 RBC 3.68 L Hgb 13.1 L D Hct 37.3 L MCV 101.4 H MCH 35.6 H MCHC 35.1 RDW 11.1 L Plt Count 155 MPV 8.9 Immature Gran % 0.6 Neutrophils % 63.9 Lymphocytes % 22.1 Monocytes % 12.4 Eosinophils % 0.6 Basophils % 0.4 Nucleated RBC % 0 Absolute Neutrophils 3.10 Absolute Lymphocytes 1.07 L Absolute Monocytes 0.60 Absolute Eosinophils 0.03 Absolute Basophils 0.02 Sodium Potassium Chloride Carbon Dioxide Anion Gap BUN Creatinine Estimated GFR/1.73 m2 Glucose Calcium Magnesium Total Bilirubin AST ALT Alkaline Phosphatase Total Protein Albumin SARS-CoV-2 (PCR)
[2021-02-09] MEDS: Potassium Chloride 10 MEQ CAPCR 40 MEQ PO (18:34)
[2021-02-09] MEDS: Acetaminophen 325 MG TAB 650 MG PO (20:32)
[2021-02-09 22:52] VITALS: BP 124/68; PULSE 89; RESP 18; TEMP 36.3; O2SAT 97
[2021-02-10 04:56] VITALS: BP 119/70; PULSE 88; RESP 17; TEMP 35.9; O2SAT 99
[2021-02-10] MEDS: Acetaminophen 325 MG TAB 650 MG PO (04:56)
[2021-02-10] MEDS: Furosemide 20 MG/2 ML VIAL IVP (08:00)
[2021-02-10] MEDS: Nicotine 21 MG/24 HR PATCH TD (08:00)
[2021-02-10] MEDS: Normal Saline Flush 10 ML SYR IVP (08:01)
[2021-02-10] MEDS: Ketoconazole 2% CREAM 15 GM TUBE TP (08:09)
[2021-02-10 08:54] VITALS: BP 119/74; PULSE 82; RESP 18; TEMP 36.5; O2SAT 99
--- NOTE | 2021-02-10 10:00 | W.PM.PROGNOT ---
Date of Service Date of service: 02/10/21 Time of Service: 10:01 Assessment and Plan Assessment and plan (1) Wounds and injuries: Status: Acute Assessment and plan: Patient with multiple bilateral wounds to buttocks and upper posterior legs d/t prolonged sitting in feces and urine. Osteo r/o by imaging. area consistent with chemical dermatitis, antibiotics discontinued. continue compound cream to affected areas wound care following BC negative to date WBC normal (2) Ambulatory dysfunction: Status: Acute Assessment and plan: Patient has been inactive for approx 2 months driving around in his car. PT/OT with progression of ambulation and strength anticipate discharge to SNF MRI of LS spine with no findings to explain (3) Hyponatremia: Status: Resolved Assessment and plan: resolved. (4) Bilateral edema of lower extremity: Status: Acute Assessment and plan: improved, continue elevation and compression. stop lasix, monitor labs. (5) DVT prophylaxis: Status: Acute Assessment and plan: Hx of alcohol disorder, rectus sheath hematoma. TEDs, SCDs, hold chemical prophylaxis at this time as also do not know if patient has esophageal varices. (6) Discharge planning issues: Status: Acute Assessment and plan: Lives in car at this time. Will likely need SNF for ambulatory dysfunction prior to discharge back to community above discussed with Dr. Rogers (7) Alcohol use disorder, moderate, in early remission, dependence: Status: Chronic Assessment and plan: no sign of withdrawal, continue to monitor thiamine daily Subjective Subjective Patient reports: no new complaints, feels better, tolerating liquids well and tolerating a regular diet Interval history since last seen: working with physical therapy Exam Const General: cooperative (resting tremor left upper extremity), frail appearing and ill appearing (older appearing than stated age) chronically Nutritional Appearance: average body habitus Orientation: alert, awake and oriented x3 HENMT Head: normal to inspection, normocephalic and atraumatic Resp Effort & Inspection: normal respiratory effort Cardio Rate: regular rate Rhythm: regular rhythm Objective Last Vital Signs Temp 36.5 C 02/10/21 08:54 Pulse 82 02/10/21 08:54 Resp 18 02/10/21 08:54 BP 119/74 02/10/21 08:54 Pulse Ox 99 02/10/21 08:54
--- NOTE | 2021-02-10 10:04 | OTTR_ITS ---
Date of service: 02/10/21 Time of Service: 09:25 Occupational Therapy Notes Occupational Therapy Inpatient Treatment Note Date: 02/10/21 PRECAUTIONS: Fall, standard, full SUBJECTIVE: Pt was sitting in bed when OT arrived. He states that he would like to perform his ADLs and notes that he is sore today. OBJECTIVE: PAIN:8-9/10 pain with wounds and legs FUNCTIONAL MOBILITY Rolling L/R: (I) BATHING: sitting in bed with max (A) Set up/clean up Upper Body: (I) UE including face, (B) UE and abdomen Lower Body: (I) with tops of legs with good leg mobility, however max (A) under legs and jesica area due to wounds with [employer] (A). DRESSING: sitting in bed Upper Extremity: (I) [facility] Lower Extremity: Max (A) due to pain in wounds from leg mobility ASSESSMENT/PLAN: Pts LE are sore which is limiting his LE functional (I). Overall he is able to perform his UE bathing/dressing (I). He required max (A) for jesica area and legs where his wounds are because he is in so much pain. Goal is to continue to progress pt as symptoms allow. TREATMENT CODES/TIME: [id number], 25 minutes (09:25) JAKUB Garcia/[facility]
[2021-02-10] MEDS: MORPHine 2 MG/ML SYR IVP (10:27)
--- NOTE | 2021-02-10 14:42 | PT.INTREAT ---
Date of service: 02/10/21 Time of Service: 14:00 PT Notes Visit Reasons: skin wound, ambulatory dysfunction Inpatient Physical Therapy Treatment Note [facility] Date: 02/10/2021 PRECAUTIONS: Fall, activity as tolerated SUBJECTIVE: Binu is agreeable to participating in PT. He reports that the reason he was not able to get out of the car, was because I am so ataxic that I have no balance. OBJECTIVE: PAIN: Patient c/o pain in buttock and posterior legs due to wounds BED MOBILITY/TRANSFERS Rolling L/R: I Supine-sit: SBA with HOB at 30 degrees in a.m.; S with HOB flat in p.m. Sit-supine: SBA with HOB flat in a.m.; S with HOB flat in p.m. Sit-stand: CGA Stand-sit: CGA GAIT Assistive Device: FWW Weight bearing: Full Assist: CGA-SBA Distance: 150' + 50' in a.m.; 150' in p.m. Deviation: Wide BROCK, ataxic gait, L foot inversion THEREX: Patient was instructed in a seated/standing UE and LE strengthening program in a.m., and a supine core and LE strengthening program in p.m., as per flow sheet. He was also instructed in [id number] exercise, which he tolerated well. He requires constant cueing for slow, purposeful movements. ASSESSMENT: Patient tolerated sessions with c/o pain in buttocks and posterior legs due to wounds. He was able to tolerate a progression in gait distance, although continues to demonstrate ataxic gait pattern. PLAN: Continue with global strengthening and gait training for improved mobility. TREATMENT CODE/TIME: Session 1: 40 minutes; 13613 x2, 24369 (10:30) Session 2: 30 minutes; 21713, 80521 (14:00)
[2021-02-10] MEDS: Thiamine 100 MG TAB PO (17:00)
[2021-02-10 18:07] VITALS: BP 113/66; PULSE 94; RESP 18; TEMP 37.1; O2SAT 98
--- NOTE | 2021-02-10 18:40 | PDOC.CMPRO ---
- If Service Date Differs Date of service: 02/10/21 Time of Service: 18:40 Care Management Progress Note S/O: Binu was lying in bed when CM met with him. He reported that he is happy to go to SNF after this acute admission. CM discussed local options with him, and he chose to have referrals sent to [facility] as well as the [facility]. CM sent these referrals, and also sent a referral to [facility] inquiring about [facility], as he does not have a secondary insurance at this time. CM will continue to follow. A: Binu is a 56 year old male admitted to [facility] on 02/08/21 with skin wound, ambulatory dysfunction. P: Anticipate Binu will go to short term rehab after this acute admission, once he is medically cleared. Referrals have been sent to local SNF's. He will likely transport via w/c van. He will follow up with his PCP and discharge plan of care. CM will continue to follow.
[2021-02-10] MEDS: traMADol 50 MG TAB PO (21:27)
[2021-02-11 03:06] VITALS: BP 135/81; PULSE 80; RESP 18; TEMP 36.1; O2SAT 98
[2021-02-11] MEDS: traMADol 50 MG TAB PO (06:34)
[2021-02-11 07:07] LABS: Abs Immature Grans 0.06 10^3/uL (0.0-0.06); Absolute Basophil Count 0.05 10^3/uL (0.0-0.2); Absolute Eosinophil Count 0.04 10^3/uL (0.0-0.7); Absolute Lymphocyte Count 1.37 10^3/uL (1.2-3.4); Absolute Monocyte Count 0.36 10^3/uL (0.1-0.8); Absolute Neutrophil Count 2.44 10^3/uL (1.2-6.7); Basophils % 1.2; Eosinophils % 0.9; HGB 13.5 g/dL (13.5-17.5); Immature Grans % 1.4; Lymphocytes % 31.7; MCH 35.8 pg (27.0-33.0); MCHC 35.5 % (32.0-36.0); MCV 100.8 fL (80-95); MPV 8.2 fL (8.0-11.0); Monocytes % 8.3; Neutrophils % 56.5; Nucleated RBC 0 %; Platelet Count 207 10^3/uL (130-400); RBC 3.77 10^6/uL (4.36-5.78); WBC 4.32 10^3/uL (4.4-10.8)
[2021-02-11 07:26] VITALS: BP 115/74; PULSE 92; RESP 18; TEMP 36.1; O2SAT 97
[2021-02-11 07:31] LABS: Anion Gap 8.8 mmol/L (3-11); BUN 7 mg/dL (7-18); CO2 26.2 mmol/L (21.0-32.0); CREATININE 0.8 mg/dL (0.70-1.30); Calcium 8.6 mg/dL (8.5-10.1); Chloride 103 mmol/L (98-107); Glucose 99 mg/dL (74-106); Potassium 3.2 mmol/L (3.5-5.1); Sodium 138 mmol/L (136-145)
--- NOTE | 2021-02-11 08:41 | W.PM.PROGNOT ---
Date of Service Date of service: 02/11/21 Time of Service: 08:41 Assessment and Plan Assessment and plan (1) Wounds and injuries: Status: Acute Assessment and plan: Patient with multiple bilateral wounds to buttocks and upper posterior legs d/t prolonged sitting in feces and urine that are improving with treatment. Osteo r/o by imaging. area consistent with chemical dermatitis, antibiotics discontinued. continue compound cream to affected areas wound care following BC negative to date WBC normal (2) Ambulatory dysfunction: Status: Acute Assessment and plan: Patient has been inactive for approx 2 months driving around in his car. PT/OT with progression of ambulation and strength anticipate discharge to SNF MRI of LS spine with no significant findings (3) Hyponatremia: Status: Resolved Assessment and plan: resolved. (4) Bilateral edema of lower extremity: Status: Acute Assessment and plan: improved, continue elevation and compression. stop lasix, monitor labs. (5) DVT prophylaxis: Status: Acute Assessment and plan: Hx of alcohol disorder, rectus sheath hematoma. TEDs, SCDs, hold chemical prophylaxis at this time as also do not know if patient has esophageal varices. (6) Discharge planning issues: Status: Acute Assessment and plan: Lives in car at this time. Will likely need SNF for ambulatory dysfunction prior to discharge back to community above discussed with Dr. Rogers (7) Alcohol use disorder, moderate, in early remission, dependence: Status: Chronic Assessment and plan: no sign of withdrawal, continue to monitor thiamine daily Subjective Subjective Patient reports: no new complaints, feels better, tolerating liquids well, tolerating a regular diet and afebrile Interval history since last seen: working with PT and progressing Exam Const General: cooperative (resting tremor left upper extremity), frail appearing and ill appearing (older appearing than stated age) chronically Nutritional Appearance: average body habitus Orientation: alert, awake and oriented x3 HENMT Head: normal to inspection, normocephalic and atraumatic Resp Effort & Inspection: normal respiratory effort Cardio Rate: regular rate Rhythm: regular rhythm Objective Last Vital Signs Temp 36.1 C L 02/11/21 07:26 Pulse 92 H 02/11/21 07:26 Resp 18 02/11/21 07:26 BP 115/74 02/11/21 07:26 Pulse Ox 97 02/11/21 07:26 Laboratory Results - last 24 hr 02/11/21 02/11/21 06:49 06:49 WBC 4.32 L RBC 3.77 L Hgb 13.5 Hct 38.0 L MCV 100.8 H MCH 35.8 H MCHC 35.5 RDW 11.0 L Plt Count 207 MPV 8.2 Immature Gran % 1.4 Neutrophils % 56.5 Lymphocytes % 31.7 Monocytes % 8.3 Eosinophils % 0.9 Basophils % 1.2 Nucleated RBC % 0 Absolute Neutrophils 2.44 Absolute Lymphocytes 1.37 Absolute Monocytes 0.36 Absolute Eosinophils 0.04 Absolute Basophils 0.05 Sodium 138 Potassium 3.2 L Chloride 103 Carbon Dioxide 26.2 Anion Gap 8.8 BUN 7 Creatinine 0.8 Estimated GFR/1.73 m2 >= 60.00 Glucose 99 Calcium 8.6
[2021-02-11] MEDS: Potassium Chloride 20 MEQ TABCR PO ×3 (09:16→20:49)
[2021-02-11] MEDS: Thiamine 100 MG TAB PO (09:16)
[2021-02-11] MEDS: Nicotine 21 MG/24 HR PATCH TD (09:16)
[2021-02-11] MEDS: Ketoconazole 2% CREAM 15 GM TUBE TP (09:18)
[2021-02-11 09:21] LABS: Magnesium 1.9 mg/dL (1.8-2.4)
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
--- NOTE | 2021-02-11 11:16 | PT.INTREAT ---
Date of service: 02/11/21 Time of Service: 10:25 PT Notes Visit Reasons: skin wound, ambulatory dysfunction Inpatient Physical Therapy Treatment Note [facility] Date: 02/11/2021 PRECAUTIONS: Fall, activity as tolerated SUBJECTIVE: Binu is pleasant agreeable to participating in PT. He states that he has not gotten much sleep since being here. He hopes to discharge to a rehab to continue to progress his mobility and strengthening. He expresses appreciation at the conclusion of each session. OBJECTIVE: PAIN: Patient c/o pain in buttock and posterior legs due to wounds, although less than yesterday BED MOBILITY/TRANSFERS Supine-sit: I with HOB flat Sit-supine: I with HOB flat Sit-stand: SBA with verbal cueing Stand-sit: SBA with verbal cueing GAIT Assistive Device: FWW Weight bearing: Full Assist: SBA Distance: 100' + 75' in a.m.; 450' in p.m. Deviation: Wide BROCK, ataxic gait, L foot inversion, slow pace THEREX: Patient was instructed in a resisted standing UE and LE strengthening program in a.m., as per flow sheet. He was able to perform resisted UE exercises without UE support. He utilizes 3# dumbbells and 2.5# ankle weights with all exercises. ASSESSMENT: Patient tolerated sessions with some c/o pain in buttocks and posterior legs due to wounds. He was able to tolerate a progression in his ther ex program, tolerating completing all exercises in a standing position, and resisted UE exercises without UE support and with SBA. He continues to require verbal cueing for slow, purposeful decent with transfers, although has made progress from yesterday. PLAN: Continue with global strengthening and gait training for improved mobility. TREATMENT CODE/TIME: Session 1: 40 minutes; [id number], 22727 x2 (10:25) Session 2: 20 minutes; 28115 (13:50)
[2021-02-11 16:02] VITALS: BP 120/74; PULSE 93; RESP 16; TEMP 36.7; O2SAT 97
--- NOTE | 2021-02-11 20:03 | PDOC.CMPRO ---
- If Service Date Differs Date of service: 02/11/21 Time of Service: 20:03 Care Management Progress Note S/O: Binu was lying in bed when CM visited with him. CM asked for him to sign a consent for an insurance assister from [employer] to help with obtaining [facility]. He reported that he believes he already has EDWARDO in place. CM called [employer] to verify his insurance, which showed only M[employer], not EDWARDO. Binu has now been declined by [employer] and the [facility][1]. CM will discuss further options with him for referrals to be sent. CM will continue to follow. A: Binu is a 56 year old male admitted to [facility] on 02/08/21 with skin wound, ambulatory dysfunction. P: Anticipate Binu will go to short term rehab after this acute admission, once he is medically cleared. Referrals have been sent to local SNF's. He will likely transport via w/c van. He will follow up with his PCP and discharge plan of care. CM will continue to follow.
[2021-02-11] MEDS: Acetaminophen 325 MG TAB 650 MG PO (21:12)
[2021-02-11] MEDS: Melatonin 3 MG TAB 9 MG PO (21:13)
[2021-02-11] MEDS: Normal Saline Flush 10 ML SYR IVP (21:15)
[2021-02-11 21:48] VITALS: BP 124/74; PULSE 79; RESP 18; TEMP 36.9; O2SAT 96
[2021-02-12] MEDS: Acetaminophen 325 MG TAB 650 MG PO ×2 (03:43→08:57)
[2021-02-12] MEDS: Nicotine 21 MG/24 HR PATCH TD (04:00)
[2021-02-12] MEDS: traMADol 50 MG TAB PO (07:12)
[2021-02-12 07:24] VITALS: BP 134/84; PULSE 79; RESP 20; TEMP 36.6; O2SAT 100
--- NOTE | 2021-02-12 08:20 | OT.INTREAT ---
Date of service: 02/12/21 Time of Service: 08:20 Occupational Therapy Notes Occupational Therapy Inpatient Treatment Note Date: 02/12/21 PRECAUTIONS: Fall, standard, full SUBJECTIVE: Pt was returning to the room after working with [employer]. He is agreeable to OT session. OBJECTIVE: PAIN: pt states that he has discomfort in (B) LE but does not specify a number BATHING: sitting chair Upper Body: (I) UE including face, (B) UE and abdomen Lower Body: (I) with tops of legs with good leg mobility, however max (A) under legs d/t wounds, (I) below knees DRESSING:sitting in chair Upper Extremity: (I) don and doffing [facility] gow Lower Extremity: Min (A) don and doffing (B) socks ASSESSMENT/PLAN: Pt is making increased (I) in her ADL routines and is able to perform with increased functional activity tolerance. TREATMENT CODES/TIME: 29775, 10 minutes (08:05) Joyce Jacobs OTR/L [facility]
--- NOTE | 2021-02-12 08:22 | PT.INTREAT ---
Date of service: 02/12/21 Time of Service: 07:20 PT Notes Visit Reasons: skin wound, ambulatory dysfunction Inpatient Physical Therapy Treatment Note [facility] Date: 02/12/2021 PRECAUTIONS: Fall, activity as tolerated SUBJECTIVE: Binu is pleasant agreeable to participating in PT. OBJECTIVE: PAIN: Patient reports 6/10 pain to nursing prior to PT session, no c/o pain t/o session. BED MOBILITY/TRANSFERS Supine-sit: I with HOB flat Sit-supine: I with HOB flat Sit-stand: S Stand-sit: S GAIT Assistive Device: FWW Weight bearing: Full Assist: SBA Distance: 150' + 50' in a.m.; in p.m. Deviation: Wide BROCK, ataxic gait, L foot inversion, increased pacing THEREX: Patient was instructed in a resisted standing UE strengthening program in a.m., as per flow sheet. He was able to perform resisted UE exercises without UE support. He utilizes 3# dumbbells with all UE exercises. In parallel bars, he was also instructed in forward step-ups and reverse step-ups onto 6 platform, squats, forward and backward walking, as well as several neuro re-ed exercises, including standing with feet close together with eyes open and with eyes closed, SLS, and tandem stance, all with CGA. ASSESSMENT: Patient tolerated sessions without c/o pain. He was able to tolerate a progression in his ther ex and neuro re-ed program, tolerating completing all exercises in a standing position, and resisted UE exercises without UE support and with SBA. He no longer requires verbal cueing for slow, purposeful decent with transfers. PLAN: Continue with global strengthening, neuro re-education and gait training for improved mobility and stability for safety. TREATMENT CODE/TIME: Session 1: 50 minutes; [id number], 02366 x2 (07:20)
[2021-02-12] MEDS: Ketoconazole 2% CREAM 15 GM TUBE TP (08:56)
[2021-02-12] MEDS: Potassium Chloride 20 MEQ TABCR PO ×3 (08:57→21:22)
[2021-02-12] MEDS: Thiamine 100 MG TAB PO (08:57)
--- NOTE | 2021-02-12 10:07 | PGE_ITS ---
Date of Service Date of service: 02/12/21 Time of Service: 10:07 Assessment and Plan Assessment and plan (1) Wounds and injuries: Status: Acute Assessment and plan: Patient with multiple bilateral wounds to buttocks and upper posterior legs d/t prolonged sitting in feces and urine that are improving with treatment. Osteo r/o by imaging. area consistent with chemical dermatitis, stable off antibiotics. continue compound cream to affected areas wound care following BC negative to date WBC normal (2) Ambulatory dysfunction: Status: Acute Assessment and plan: Patient has been inactive for approx 2 months driving around in his car. PT/OT with progression of ambulation and strength anticipate discharge to SNF MRI of LS spine with no significant findings (3) Hyponatremia: Status: Resolved Assessment and plan: resolved. (4) Bilateral edema of lower extremity: Status: Acute Assessment and plan: improved, continue elevation and compression. stop lasix, monitor labs. (5) Alcohol use disorder, moderate, in early remission, dependence: Status: Chronic Assessment and plan: no sign of withdrawal, continue to monitor thiamine daily (6) DVT prophylaxis: Status: Acute Assessment and plan: Hx of alcohol disorder, rectus sheath hematoma. TEDs, SCDs, hold chemical prophylaxis at this time as also do not know if patient has esophageal varices. (7) Discharge planning issues: Status: Acute Assessment and plan: Will need SNF for ambulatory dysfunction prior to discharge back to community. above discussed with Dr. Rogers Subjective Subjective Patient reports: no new complaints, feels better, tolerating liquids well, to lerating a regular diet and afebrile Exam Const General: cooperative (resting tremor left upper extremity), frail appearing and ill appearing (older appearing than stated age) chronically Nutritional Appearance: average body habitus Orientation: alert, awake and oriented x3 HENMT Head: normal to inspection, normocephalic and atraumatic Resp Effort & Inspection: normal respiratory effort Cardio Rate: regular rate Rhythm: regular rhythm Objective Last Vital Signs Temp 36.6 C 02/12/21 07:24 Pulse 79 02/12/21 07:24 Resp 20 02/12/21 07:24 BP 134/84 02/12/21 07:24 Pulse Ox 100 02/12/21 07:24
--- NOTE | 2021-02-12 14:19 | PT.INTREAT ---
PT Notes Visit Reasons: skin wound, ambulatory dysfunction 02/12/2021 SUBJECTIVE: Notes not sleeping well last night. States he feels tender where is sores are. Agreeable to PT session. OBJECTIVE: TRANSFERS Supine to sit: I Sit to supine: I Sit to stand: S Stand to sit: S GAIT Device: B-FWW Weight bearing : Full Assist: SBA/CGA Distance: 100'x2 Deviation: Wide BROCK, slow pace, fatigues with increasing distance requiring CGA THEREX: As noted on flow sheet. Performs 10 minutes on the nustep for cardiovascular conditioning. Standing LE strengthening and balance re-training exercises performed at parallel bars. See flow sheet. ASSESSMENT: Fatigues at end of session with gait becoming increasingly difficulty and ataxic. PLAN: Continue per POC. Treatment time: 30 minutes [id number], [id number] Carla Anthony PTA Clinic location: [facility] [place], [place]
--- NOTE | 2021-02-12 14:19 | CHAPLAIN ---
Binu was in bed when I visited. He said his family members have been visiting he daily. I introduced myself and explained my role, and offered support.
[2021-02-12 15:21] VITALS: BP 131/78; PULSE 84; RESP 19; TEMP 37; O2SAT 100
--- NOTE | 2021-02-12 17:39 | CMPROGNOTE_ITS ---
- If Service Date Differs Date of service: 02/12/21 Time of Service: 17:39 Care Management Progress Note S/O: Binu was lying in bed when CM met with him. He reported that he is doing well working with PT. CM spoke to PT, who also reported that Binu is highly motivated and doing great. CM sent his SNF referral to [facility] and [facility]. [facility] does not have a bed until next week, and [facility] is still reviewing the referral. CM sent a consent form to Aleksandra for the insurance ass ister to look into the status of his EDWARDO, which he believes to be in progress and should be active soon. If he does have EDWARDO, this will give him a secondary payer source for rehab, extending his rehab days from 20 to 100. CM discussed his discharge plan after rehab, and he stated that he may be able to stay with his mother, but if not, he will call 211 to get emergency housing. CM also discussed the option of SWB for Binu, which would be short term. He is agreeable to either option. CM will advocate that he enter SWB on Monday if he does not have a bed offer elsewhere. CM will continue to follow. A: Binu is a 56 year old male admitted to [facility] on 02/08/21 with skin wound, ambulatory dysfunction. P: Anticipate Binu will go to short term rehab after this acute admission, once he is medically cleared. Referrals have been sent to local SNF's. He will likely transport via w/c van. He will follow up with his PCP and discharge plan of care. CM will continue to follow.
[2021-02-12] MEDS: Melatonin 3 MG TAB 9 MG PO (21:21)
[2021-02-13] MEDS: Nicotine 21 MG/24 HR PATCH TD (07:44)
[2021-02-13] MEDS: Ketoconazole 2% CREAM 15 GM TUBE TP (07:45)
[2021-02-13] MEDS: Thiamine 100 MG TAB PO (07:45)
[2021-02-13] MEDS: Normal Saline Flush 10 ML SYR IVP ×2 (07:46→21:52)
[2021-02-13 08:15] VITALS: BP 122/77; PULSE 79; RESP 18; TEMP 36.7; O2SAT 98
--- NOTE | 2021-02-13 09:51 | PT.INTREAT ---
Date of service: 02/13/21 Time of Service: 09:05 PT Notes Visit Reasons: skin wound, ambulatory dysfunction Inpatient Physical Therapy Treatment Note [facility] Date: 02/13/2021 PRECAUTIONS: Fall, activity as tolerated SUBJECTIVE: Binu is pleasant agreeable to participating in PT. He indicates that he slept well last night. OBJECTIVE: PAIN: Patient c/o R shoulder/upper arm cramping with use of FWW with gait training BED MOBILITY/TRANSFERS Supine-sit: I with HOB flat Sit-stand: S Stand-sit: S GAIT Assistive Device: FWW Weight bearing: Full Assist: SBA Distance: 15' + 200' + 50' Deviation: Wide BROCK, ataxic gait, L foot inversion THEREX: Patient was instructed in several neuro re-ed exercises, including standing with feet close together with eyes open and with eyes closed, SLS, and tandem stance, all with CGA. Patient utilizes B UE support with SLS exercise only. He also performs backward and lateral walking in parallel bars x4 each. TOILETING: Patient toileted with supervision for transfers only ASSESSMENT: Patient tolerated sessions with c/o R shoulder cramping pain with use of FWW with gait training. He no longer requires verbal cueing for slow, purposeful decent with transfers. PLAN: Continue with global strengthening, neuro re-education and gait training for improved mobility and stability for safety. TREATMENT CODE/TIME: 35 minutes; 24240 x2 (09:05)
--- NOTE | 2021-02-13 12:54 | W.PM.PROGNOT ---
Date of Service Date of service: 02/13/21 Time of Service: 12:55 Assessment and Plan Assessment and plan (1) Wounds and injuries: Status: Acute Assessment and plan: Affected areas of buttocks and posterior upper legs; d/t prolonged exposure to his stool and urine. Chemical dermatitis Improving with compound cream; no oral/IV antibiotics. (2) Ambulatory dysfunction: Status: Acute Assessment and plan: Working well with PT. Using a roller walker. Has a wide base, ataxic gait likely d/t alcohol effects. (3) Essential hypertension: Status: Chronic Assessment and plan: Controlled on no antihypertensive medications. Monitoring. (4) Alcohol use disorder, moderate, in early remission, dependence: Status: Chronic Assessment and plan: No withdrawal noted. Cont Thiamine supplementation. Eating well. Subjective Subjective Patient reports: no new complaints, tolerating a regular diet and afebrile; denies diarrhea, nausea, vomiting and shortness of breath Interval history since last seen: Itching at areas of skin irritation / buttocks and posterior legs. Exam Const General: cooperative and no acute distress Nutritional Appearance: overweight Orientation: alert and oriented x3 Resp Effort & Inspection: normal respiratory effort Auscultation: clear to auscultation bilaterally Cardio Rate: regular rate Rhythm: regular rhythm Heart Sounds: S1 normal and S2 normal GI Palpation: soft and nontender Skin Full body images: 1. Irritated appearing skin with mild erythema and superficial desquamation Extrem General: no pedal edema and no calf tenderness Objective Last Vital Signs Temp 36.7 C 02/13/21 08:15 Pulse 79 02/13/21 08:15 Resp 18 02/13/21 08:15 BP 122/77 02/13/21 08:15 Pulse Ox 98 02/13/21 08:15
[2021-02-13 16:18] VITALS: BP 131/74; PULSE 85; RESP 18; TEMP 36.5; O2SAT 98
[2021-02-13] MEDS: Melatonin 3 MG TAB 9 MG PO (21:51)
[2021-02-13] MEDS: Acetaminophen 325 MG TAB 650 MG PO (21:51)
[2021-02-13 23:30] VITALS: BP 126/71; PULSE 84; RESP 16; TEMP 36.6; O2SAT 98
[2021-02-14 07:30] VITALS: BP 121/76; PULSE 74; RESP 18; TEMP 36.5; O2SAT 99
[2021-02-14] MEDS: Nicotine 21 MG/24 HR PATCH TD (07:53)
[2021-02-14] MEDS: Thiamine 100 MG TAB PO (07:53)
[2021-02-14] MEDS: Ketoconazole 2% CREAM 15 GM TUBE TP (07:54)
--- NOTE | 2021-02-14 09:41 | PT.INTREAT ---
Date of service: 02/14/21 Time of Service: 08:55 PT Notes Visit Reasons: skin wound, ambulatory dysfunction Inpatient Physical Therapy Treatment Note [facility] Date: 02/14/2021 PRECAUTIONS: Fall, activity as tolerated SUBJECTIVE: Binu is pleasant agreeable to participating in PT. He reports that his buttocks and posterior LEs have been very itchy. OBJECTIVE: PAIN: No c/o pain BED MOBILITY/TRANSFERS Sit-stand: S Stand-sit: S GAIT Assistive Device: FWW Weight bearing: Full Assist: SBA Distance: 50' x2 Deviation: Wide BROCK, ataxic gait, L foot inversion THEREX: Patient was instructed in several neuro re-ed exercises completed on Airex pad for increased challenge, including standing with feet close together with eyes open and with eyes closed, SLS, and tandem stance, all with CGA. Patient utilizes B UE support with SLS exercise only. He was also instructed in resisted LE exercises, performed in standing position in parallel bars, including hip flexion, hip extension, hip abduction, and heel raises, utilizing 2.5# ankle weights. He was also instructed in functional [id number] exercise from elevated plinth surface, without UE support. ASSESSMENT: Patient tolerated session well without complaint. He was able to tolerate a progression in his ther ex program, tolerating increased reps, as well as in his neuro re-ed program, tolerating the addition of Airex pad. He no longer requires verbal cueing for slow, purposeful decent with transfers. PLAN: Continue with global strengthening, neuro re-education and gait training for improved mobility and stability for safety. TREATMENT CODE/TIME: 40 minutes; 74365, [id number] x2 (08:55)
--- NOTE | 2021-02-14 10:51 | W.PM.PROGNOT ---
Date of Service Date of service: 02/14/21 Time of Service: 10:51 Assessment and Plan Assessment and plan (1) Wounds and injuries: Status: Acute Assessment and plan: Affected areas of buttocks and posterior upper legs; d/t prolonged exposure to his stool and urine. Chemical dermatitis Improving with compound cream; no oral/IV antibiotics. Add 1% hydrocortisone topical cream to apply to affect areas. (2) Ambulatory dysfunction: Status: Acute Assessment and plan: Working well with PT. Using a roller walker. Has a wide base, ataxic gait likely d/t alcohol effects. (3) Essential hypertension: Status: Chronic Assessment and plan: Controlled on no antihypertensive medications. Monitoring. (4) Alcohol use disorder, moderate, in early remission, dependence: Status: Chronic Assessment and plan: No withdrawal noted. Cont Thiamine supplementation. Eating well. Subjective Subjective Patient reports: no new complaints, tolerating a regular diet and afebrile; denies diarrhea, nausea, vomiting and shortness of breath Interval history since last seen: Itching at areas of skin irritation / buttocks and posterior legs continues. Exam Const General: cooperative and no acute distress Nutritional Appearance: overweight Orientation: alert and oriented x3 Resp Effort & Inspection: normal respiratory effort Auscultation: clear to auscultation bilaterally Cardio Rate: regular rate Rhythm: regular rhythm Heart Sounds: S1 normal and S2 normal GI Palpation: soft and nontender Extrem General: no pedal edema and no calf tenderness Objective Last Vital Signs Temp 36.5 C 02/14/21 07:30 Pulse 74 02/14/21 07:30 Resp 18 02/14/21 07:30 BP 121/76 02/14/21 07:30 Pulse Ox 99 02/14/21 07:30
[2021-02-14] MEDS: Hydrocortisone 1% CR 30 GM TUBE TP ×2 (14:53→21:50)
[2021-02-14 15:32] VITALS: BP 135/83; PULSE 74; RESP 14; TEMP 37.2; O2SAT 97
[2021-02-14] MEDS: Melatonin 3 MG TAB 9 MG PO (21:50)
[2021-02-14] MEDS: Docusate Sodium 100 MG CAP PO (22:05)
[2021-02-14 23:00] VITALS: BP 124/79; PULSE 77; RESP 16; TEMP 36.9; O2SAT 97
[2021-02-15 07:12] VITALS: BP 137/79; PULSE 77; RESP 19; TEMP 36.7; O2SAT 98
[2021-02-15] MEDS: Acetaminophen 325 MG TAB 650 MG PO (08:57)
[2021-02-15] MEDS: Hydrocortisone 1% CR 30 GM TUBE TP ×3 (08:57→21:16)
[2021-02-15] MEDS: Nicotine 21 MG/24 HR PATCH TD (08:57)
[2021-02-15] MEDS: Ketoconazole 2% CREAM 15 GM TUBE TP (08:57)
[2021-02-15] MEDS: Thiamine 100 MG TAB PO (08:57)
--- NOTE | 2021-02-15 09:28 | OT.INTREAT ---
Date of service: 02/15/21 Time of Service: 09:05 Occupational Therapy Notes Occupational Therapy Inpatient Treatment Note Date: 02/15/21 PRECAUTIONS: Fall, standard, Full SUBJECTIVE: Pt was lying in bed when OT arrived, he was agreeable to OT session and notes that he feels that he is making improvements in his functional mobility which seems to be helping. OBJECTIVE: PAIN:c/o discomfort in his posterior legs and jesica area FUNCTIONAL MOBILITY Rolling L/R: (I) Supine-sit: (I) Sit-supine: (I) Sit-stand: SBA Stand-sit: SBA Bed-Chair: SBA Chair-bed: SBA BATHING: standing at sink with FWW with max (A) Set up, (I) face, (B) UE and abdomen, min (A) (B) anterior LE, pt denies the posterior side of his (B) LE due to discomfort from his wounds. No LOB but legs shaking and requires occasional hand support to FWW DRESSING: Standing at sink with FWW Upper Extremity: (I) [facility] gown GROOMING: Pt denies brushing his teeth or performing oral care. TOILETING: (I) with urinal PLAN: Pt is making gains in terms of his standing ADLS, he requires S-SBA while standing but has good body awareness and fatigue measure and is able to indicate when he is tired and needs a break. TREATMENT CODES/TIME: [id number], 25 minutes (09:05) Joyce Jacobs, OTR/L [facility]
--- NOTE | 2021-02-15 12:51 | CMPROGNOTE_ITS ---
- If Service Date Differs Date of service: 02/15/21 Time of Service: 12:51 Care Management Progress Note S/O: Binu was lying in bed when CM met with him. He reported that he was doing very well with PT, which PT reported as well. CM discussed his discharge plan, as he is likely going to be ready for discharge in the next day or two, per MD. He is currently homeless, so CM will share resources for emergency housing, as well as sober housing, which he stated that he would be interested in, as he plans to continue his sobriety upon discharge. CM will also reach out to the disaster recovery consultant for assistance with housing info and sobriety programs locally. CM will continue to follow. A: Binu is a 56 year old male admitted to [facility] on 02/08/21 with skin wound, ambulatory dysfunction. P: Anticipate Binu will go to short term rehab after this acute admission, once he is medically cleared. Referrals have been sent to local SNF's. He will likely transport via w/c van. He will follow up with his PCP and discharge plan of care. CM will continue to follow.
--- NOTE | 2021-02-15 14:30 | W.PM.PROGNOT ---
Date of Service Date of service: 02/15/21 Time of Service: 14:31 Assessment and Plan Assessment and plan (1) Wounds and injuries: Status: Acute Assessment and plan: Affected areas of buttocks and posterior upper legs; d/t prolonged exposure to his stool and urine. Chemical dermatitis Improving with compound cream; no oral/IV antibiotics. Added 1% hydrocortisone topical cream to apply to affect areas. (2) Ambulatory dysfunction: Status: Acute Assessment and plan: Working well with PT and gait/strength are improving. They are considering allowing independent ambulation in his room. Using a roller walker. Has a wide base, ataxic gait likely d/t alcohol effects. (3) Essential hypertension: Status: Chronic Assessment and plan: Controlled on no antihypertensive medications. Monitoring. (4) Alcohol use disorder, moderate, in early remission, dependence: Status: Chronic Assessment and plan: No withdrawal noted. Cont Thiamine supplementation. Eating well. (5) Discharge planning issues: Status: Acute Assessment and plan: Planning d/c to rehab; requests for evaluation of the patient have been sent. Subjective Subjective Patient reports: no new complaints, tolerating a regular diet and afebrile; denies diarrhea, nausea, vomiting and shortness of breath Interval history since last seen: Itching at areas of skin irritation / buttocks and posterior legs continues. He feels stronger overall. Walking with aid of a walker in the hallway with PT. Exam Const General: cooperative and no acute distress Nutritional Appearance: overweight Orientation: alert and oriented x3 Resp Effort & Inspection: normal respiratory effort Auscultation: clear to auscultation bilaterally Cardio Rate: regular rate Rhythm: regular rhythm Heart Sounds: S1 normal and S2 normal GI Palpation: soft and nontender Extrem General: no pedal edema and no calf tenderness Objective Last Vital Signs Temp 36.7 C 02/15/21 07:12 Pulse 77 02/15/21 07:12 Resp 19 02/15/21 07:12 BP 137/79 02/15/21 07:12 Pulse Ox 98 02/15/21 07:12
--- NOTE | 2021-02-15 15:17 | PT.INTREAT ---
Date of service: 02/15/21 Time of Service: 10:00 PT Notes Visit Reasons: skin wound, ambulatory dysfunction Inpatient Physical Therapy Treatment Note [facility] Date: 02/15/2021 PRECAUTIONS: Fall, activity as tolerated SUBJECTIVE: Binu is pleasant agreeable to participating in PT. He feels that he is getting stronger, and feels that he would be safe transferring and ambulating in his room with FWW, independently. OBJECTIVE: Patient cleared for independent transfers and short-distance ambulation in room with FWW support (following discussion with attending nurse, Parris). PAIN: No c/o pain BED MOBILITY/TRANSFERS Supine-sit: I Sit-supine: I Sit-stand: I Stand-sit: I Bed-chair: I Chair-bed: I GAIT Assistive Device: FWW Weight bearing: Full Assist: S Distance: 50' + 150' in a.m.; 300' in p.m. Deviation: Wide BROCK, ataxic gait, L foot inversion; increased ataxia with increased distance in p.m. Patient performs in-room ambulation and transfers. STAIRS: Up/down 3x4 and 2x6 using B rails and a step-to pattern with supervision TOILETING: Patient toileted independently ASSESSMENT: Patient tolerated session well without complaint. He demonstrates independence with transfers, bed mobility, and short-distance ambulation at this time. PLAN: Continue with global strengthening, neuro re-education and gait training for improved mobility and stability for safety. TREATMENT CODE/TIME: Session 1: 30 minutes; 22443 x2 (10:00) Session 2: 15 minutes; [id number] (15:30)
[2021-02-15 15:57] VITALS: BP 133/76; PULSE 90; RESP 18; TEMP 36.9; O2SAT 97
[2021-02-15] MEDS: Melatonin 3 MG TAB 9 MG PO (21:15)
[2021-02-16 00:14] VITALS: BP 136/79; PULSE 77; RESP 16; TEMP 36.6; O2SAT 98
[2021-02-16] MEDS: Thiamine 100 MG TAB PO (07:31)
[2021-02-16] MEDS: Nicotine 21 MG/24 HR PATCH TD (07:31)
[2021-02-16] MEDS: Normal Saline Flush 10 ML SYR IVP (07:32)
[2021-02-16 07:43] VITALS: BP 138/88; PULSE 72; RESP 18; TEMP 36.9; O2SAT 100
--- NOTE | 2021-02-16 11:13 | PT.INTREAT ---
Date of service: 02/16/21 Time of Service: 11:13 PT Notes Visit Reasons: Skin Wound, Ambulatory Dysfunction Inpatient Physical Therapy Treatment Note [facility] Date: 02/16/2021 PRECAUTIONS: Fall. Activity as tolerated. Compromised skin integrity. SUBJECTIVE: Binu states that he has now regained strength and balance skills by about 60% and hopes to regain more as he continues to work with physical therapy, be it in the longterm or at the outpatient clinic. OBJECTIVE: PAIN: Just some mild pain in healing wound with sitting Objective: General Observation: Skin injury in posterior thigh, gluteal, sacral, and lower lumbar areas bilaterally significantly healed. Increased shakiness with weight bearing, most pronounced in trunk and B legs. Mental Status: Alert and oriented as to person, place, time, and purpose. Able to pay attention, focus, and respond appropriately. Pain: 1/10 in areas of wound healing with pressure ROM: Right Upper Extremity: Shoulder Flexion WFL. Shoulder abduction WFL. Elbow flexion WFL. Wrist flexion WFL. Functional opening and closing of hand WFL. Left Upper Extremity: Shoulder Flexion WFL. Shoulder abduction WFL. Elbow flexion WFL. Wrist flexion WFL. Functional opening and closing of hand WFL. Right Lower Extremity: Hip flexion allows WFL. Hip extension about 10 degrees. Hip abduction WFL. Knee flexion up to 120 degrees only. Ankle dorsiflexion WFL. Ankle plantarflexion WFL. Left Lower Extremity: Hip flexion allows WFL. Hip extension about 10 degrees. Hip abduction WFL. Knee flexion up to 120 degrees only. Ankle dorsiflexion WFL. Ankle plantarflexion WFL. Strength: Right Upper Extremity: Shoulder flexors 5/5. Shoulder abductors 5/5. Elbow flexors 5/5. Elbow extensors 455. [employer] Caul[employer] Supervisor strong. Left Upper Extremity: Shoulder flexors 5/5. Shoulder abductors 5/5. Elbow flexors 5/5. Elbow extensors 455. Putty And Caulking Supervisor strong. Right Lower Extremity: Hip flexors 4/5. Hip extensors 4/5. Hip abductors 4/5. Knee flexors 3-/5. Knee extensors 4/5. Ankle dorsiflexors 4/5. Ankle plantarflexors 4/5. Left Lower Extremity: Hip flexors 4/5. Hip extensors 4/5. Hip abductors 4/5. Knee flexors 3-/5. Knee extensors 4/5. Ankle dorsiflexors 4/5. Ankle plantarflexors 4/5. Bed Mobility/Transfers: Rolling independent Sit to supine independent Sit to stand independent Stand to sit independent Bed to bedside independent Bedside commode to bed independent Bed to reclining chair independent Reclining chair to bed independent Gait: Per WASHER ENGINEER HELPER notes, up to 300 feet with supervision using bariatric FWW. Independent for all in-room ambulation. Balance: Static Sitting: Normal Dynamic Sitting: Normal Static Standing: Fair Dynamic Standing: Fair Special Tests: Mobility Limitations Standardized Measure [facility] AM-PAC 6 clicks Basic Mobility Inpatient Short Form: Raw Score: 18 CMS Score: 47% deficit 4-Stage balance Test: Remains unable to assume any of the 4 positions. Patient is able to bring in B feet about half a foot apart for 10 seconds. Informed Consent/Education: Patient was instructed in purpose of PT consult and plan of care. Agreeable to proceed with established PT POC to achieve personal goals. Assessment: Significant improvement in strength and balance but remains unsafe for long distance/outdoor ambulation. Will require continued strengthening and balance retraining to facilitate safe return to community ambulation with reduced fall risk. Healing of wound contributed considerably with mobility and strength gains in B LE. Patient continues to present with clinical signs and symptoms consistent with current/admitting diagnoses that have resulted to mobility limitations, gait instability, generalized weakness, and overall ADL decline as demonstrated by the following impairment level findings: 1. Decreased strength to B UE/LE major muscle groups 2. Impaired standing balance 3. Impaired activity tolerance 4. Limitation of joint range of motion in B LE joints 5. At risk for skin re-injury 6. Intentional tremors Impairments are contributing to the following functional limitations: 1. Difficulty with ambulation without assistive device 2. Increased completion time for mobility ADL performance 3. Increased risk for falls Patient is assessed as a 43399 complexity based on the following: History: 56-year-old male with past medical history as indicated above Examination: Demonstrable impairment in strength, balance, and mobility level with underlying impairments and functional limitations as exhibited above as well as deficit score of 23% utilizing the [facility] Mobility Inpatient Short Form Presentation: Stable Decision Makin moderate complexity Goals: Goals X1 week 1. Supine-Sit independent MET 2. Sit-Supine independent MET 3. Sit-Stand independent MET 4. Stand-Sit independent with FWW MET 5. Bed-Chair independent with FWW MET 6. Chair-Bed independent with FWW MET 7. Supervision gait on level surface with use of FWW for at least 200 feet without report of pain nor dyspnea MET. UPGRADE TO: Independent with level and non level surfaces for aat least 100 feet using bariatric FWW 8. Fair static and dynamic standing balance/tolerance MET. UPGRADE TO: Good static/dyanamic standing balance /tolerance Plan of Care/Treatment Plan: 1-2x/day, 7 days/week x 1 week. Plan of care has been reviewed with the WASHER ENGINEER HELPER providing the service under Physical Therapy direction. Initiate Physical Therapy intervention for pain management as needed, strengthening, bed mobility, transfers, gait, stairs, balance training, and use of assistive device. DISCHARGE RECOMMENDATIONS: shelter vs SNF. Continue with skilled PT at SNF or at out patient to progress balance and strength per patient's goals. TREATMENT CODE/TIME: 30332 x 37 minutes beginning at 11:13 AM. Thank you for the opportunity to participate in the care of this patient. Lisa Catalan PT, DPT, CLT [facility] [place], [place] BED MOBILITY/TRANSFERS Supine-sit: I sit-supine: I Sit-stand: I Stand-sit: I Bed-chair: I Chair-bed: I GAIT Assistive Device: FWW Weight bearing: Full Assist: Indepenednt for in-room ambulation, supervision in the hallway Distance: 50' x2 Deviation: Wide BROCK, ataxic gait, L foot inversion THEREX: Patient was instructed in several neuro re-ed exercises including backwards walking and lateral walking, completed in parallel bars. He was also instructed in resisted UE and LE exercises, performed in standing position in parallel bars, including hip flexion, hip extension, hip abduction, and heel raises, shoulder flexion, shoulder abduction, bicep curls, and [id number], utilizing 2.5# ankle weights and 3# dumbbells. ASSESSMENT: Patient tolerated session well without complaint. He was able to tolerate a progression in his ther ex program, tolerating increased reps. He has been cleared for independent transfers and ambulation within his room with use of FWW. PLAN: Continue with global strengthening, neuro re-education and gait training for improved mobility and stability for safety. TREATMENT CODE/TIME: 35 minutes; 61206, [id number] (08:45)
[2021-02-16] MEDS: Ketoconazole 2% CREAM 15 GM TUBE TP (11:51)
[2021-02-16] MEDS: Hydrocortisone 1% CR 30 GM TUBE TP ×2 (12:58→21:21)
--- NOTE | 2021-02-16 15:00 | PT.INTREAT ---
Date of service: 02/16/21 Time of Service: 08:45 PT Notes Visit Reasons: Skin Wound, Ambulatory Dysfunction Inpatient Physical Therapy Treatment Note [facility] Date: 02/16/2021 PRECAUTIONS: Fall, activity as tolerated SUBJECTIVE: Biun is pleasant agreeable to participating in PT. He reports that he has been transferring and ambulating in his room independently, and that he feels safe doing so. OBJECTIVE: PAIN: No c/o pain BED MOBILITY/TRANSFERS Supine-sit: I sit-supine: I Sit-stand: I Stand-sit: I Bed-chair: I Chair-bed: I GAIT Assistive Device: FWW Weight bearing: Full Assist: S Distance: 50' x2 Deviation: Wide BROCK, ataxic gait, L foot inversion THEREX: Patient was instructed in several neuro re-ed exercises including backwards walking and lateral walking, completed in parallel bars. He was also instructed in resisted UE and LE exercises, performed in standing position in parallel bars, including hip flexion, hip extension, hip abduction, and heel raises, shoulder flexion, shoulder abduction, bicep curls, and [id number], utilizing 2.5# ankle weights and 3# dumbbells. ASSESSMENT: Patient tolerated session well without complaint. He was able to tolerate a progression in his ther ex program, tolerating increased reps. He has been cleared for independent transfers and ambulation within his room with use of FWW. PLAN: Continue with global strengthening, neuro re-education and gait training for improved mobility and stability for safety. TREATMENT CODE/TIME: 35 minutes; 09277, 39365 (08:45)
[2021-02-16 15:36] VITALS: BP 134/85; PULSE 91; RESP 17; TEMP 36.7; O2SAT 98
--- NOTE | 2021-02-16 16:06 | W.PM.DS.N ---
Date of service: 02/17/21 Time of Service: 12:05 DS: Diagnosis Discharge Diagnosis (1) Wounds and injuries: Status: Acute (2) Ambulatory dysfunction: Status: Acute (3) Essential hypertension: Status: Chronic (4) Alcohol use disorder, moderate, in early remission, dependence: Status: Chronic Discharge Plan Disposition Patient Disposition: HOME W/HOME HEALTH SERVICE Condition: Improving Discharge Details Reason For Visit: Skin Wound, Ambulatory Dysfunction Admit Date/Time: 02/08/21 14:02 Admit Provider: Kris Rogers Attending Provider: Kris Rogers Primary Care Provider: Elvin Pascual Hospital Course Hospital Course: This is a 56 y.o male with past medical history of HTN, Smoker, hepatic stenosis, Liver function, macrocytic anemia, alcohol disorder though he does not take any medications presently; who presented to [facility] with lower back pain and wounds to bilateral lower extremities. He has been in sitting in his car for the last 2 months riding around having people bring him food. He soils himself and will sit in his feces leading to severe breakdown of bilateral skin. He also states that he has been having severe pain to his back that has made him unable to ambulate. His brother called him and told him it was time to seek care so he presented here. Labs in the ED reveal lactate of 3.1, sodium 127, urine was negative. Imaging negative for osteo. Bilateral u/s negative for dvt. He was admitted for bilateral wounds to med/surg. He was initiated on vanco and ceftriaxone 2 gms in the ED which was discontinued on admission. Wound consult placed and skin care recommendations made. Podiatry consult placed for nail care. He was seen by physical therapy and was progressing. His LS spine imaged by MRI and shows no acute findings. He was eating and drinking and bowels and bladder functioning. He is ambulating well with walker. Chemical dermatitis markedly improved. he had no signs of alcohol withdrawal, reports he is motivated to remain sober. care management was following, he was seen by a agile coach and will follow outpatient. recommendations initially were for [facility] rehab but unfortunately we were unable to secure a bed for him so he remained here until he was appropriate for discharge to home with home health services. discharge discussed with Dr Rivera Home Meds and New Rx's Prescriptions: New acetaminophen [Tylenol] 325 mg Tablet 650 mg PO Q4H PRN PRNQty: 0 RF: 0 zinc oxide 20 % Ointment 1 applic topical TID Qty: 28 RF: 0 clotrimazole 1 % Cream 1 applic topical TID Qty: 45 RF: 0 vits A and D-white pet-lanolin Ointment 1 applic topical TID Qty: 15 RF: 0 Discontinued amlodipine 5 mg Tablet 5 mg PO QAM RF: 0 irbesartan 150 mg Tablet 150 mg PO QAM RF: 0 Discharge Instructions Instructions: Contact Dermatitis (DC), Weakness (DC) Additional Instructions: Cleanse affected areas with warm soapy water, rinse well. Gently pat dry. Apply compound paste (clotrimazole 1%\zinc oxide 20%\Vitamin A & D ointment equal parts) three times daily and as needed. You will continue to receive home health nursing for wound care and monitoring, occupational and physical therapy and manager of medical at discharge. Your blood pressure has been controlled off your medication. you can continue to monitor outpatient and medication adjustments will be by your primary care provider. Do not drink alcohol. You should also avoid smoking to facilitate skin healing and to prevent ongoing lung damage. Stand Alone Forms: Nursing Discharge Form Referrals: Elvin Pascual NP [Primary Care Provider] - 02/26/21 1:00 pm (Please inform office if you are not able to make your appointment. ) Activity:: Activity as Tolerated Equipment/Supplies:: No Equipment Needed Diet:: As Tolerated Discharge Orders Discharge Orders: Discharge Order (Routine); Ordered 02/16/21 Ordered By: Mary Hameed Discharge Data Discharge Date/Time-TO BE ENTERED AT DEPARTURE: 02/17/21 14:28 DS: Summary Time Spent with Patient providing and/or coordinating discharge services: Greater than 30 minutes Status at Discharge Functional status at discharge: uses cane/walker Overall status at discharge: patient is progressing back to baseline Mental Status: mental status grossly normal Speech and Movement: speech and movement normal Mood: congruent mood Affect: normal affect Exam Const General: cooperative (resting tremor left upper extremity), frail appearing and ill appearing (older appearing than stated age) chronically Nutritional Appearance: average body habitus Orientation: alert, awake and oriented x3 HENMT Head: normal to inspection, normocephalic and atraumatic Resp Effort & Inspection: normal respiratory effort Cardio Rate: regular rate Rhythm: regular rhythm Skin Rashes: rashes noted (posterior upper legs, markedly improved. see pics by wound care) Psych Mental Status: mental status grossly normal Speech and Movement: speech and movement normal Mood: congruent mood Affect: normal affect DS: Data Vitals/I&O Vitals and I&O: Vital Signs Temperature 36.7 C 02/16/21 15:36 Temperature Source Temporal Artery Scan 02/16/21 15:36 Pulse 91 H 02/16/21 15:36 Pulse Rhythm Regular 02/16/21 07:45 Pulse 115 H 02/08/21 11:01 Respiratory Rate 17 02/16/21 15:36 Respiratory Effort Non-Labored 02/16/21 07:45 Respiratory Depth Normal 02/16/21 07:45 Respiratory Pattern Normal 02/16/21 07:45 Blood Pressure 134/85 02/16/21 15:36 Blood Pressure Mean 100 02/08/21 14:01 Blood Pressure Position Sitting 02/08/21 09:56 Pulse Oximetry 98 02/16/21 15:36 Oxygen Delivery Method Room Air 02/16/21 15:36 Oxygen Flow Rate 0 02/16/21 15:36 Pain Level 0 02/16/21 15:36 Comment 02/11/21 21:48 Intake & Output 02/15/21 02/16/21 02/16/21 23:59 11:59 23:59 Intake Total 1080 / 1440 368 / 618 250 / 618 Output Total 650 / 1875 500 / 500 Balance 430 / -435 -132 / 118 250 / 118 Intake: IV Oral 1080 / 1440 360 / 610 250 / 610 Output: Urine 650 / 1875 500 / 500 Other: Urine Color Pale Light [place] Yellow Urine Appearance Clear Clear Urine Odor Normal Normal Stool Size Small Stool Characteristics Soft Voiding Methods Urinal Urinal [facility] Medical History (Updated 02/10/21 @ 16:26 by Mary Hameed NP) Alcohol use disorder, moderate, in early remission, dependence (05/10/17) Allergic rhinitis (08/15/17) Closed disp spiral fx of shaft of left tibia with delayed healing Elevated liver function tests (05/10/17) Essential hypertension (05/10/17) Hepatic steatosis (02/19/18) Elevated LFTs negative thorough workup previously. Possibly ingesting alcohol once again. Hypertension (05/10/17) fair control. Macrocytic anemia (03/06/18) We will repeat CBC. likely cause alcohol abuse Peripheral polyneuropathy (05/10/17) Prediabetes (02/19/18) Rectus sheath hematoma Recurrent dislocation, left shoulder Smoker (12/26/17) currently 1 pack for week. Unstable gait (05/10/17) Vitamin D deficiency (01/26/18) Family History Father Heart disease Social History Smoking/Tobacco Use Status: Current every day Tobacco Type: cigarettes Smoking risk assessment performed?: Yes Alcohol Intake: current Alcohol Intake frequency: 3 or more drinks per day Alcohol type: beer Drug use: Occasionally Substance use type: marijuana Household members: none Housing: apartment Number of Children: 3 number of grandchildren: 8 Pets and animals: Yes Pets and animals: fish What is your relationship status?: Panel score (0-1 are the most socially isolated patients): 0 What type of physical activity do you participate in: walking Seatbelt use: sometimes Do you feel safe in your relationship?: Yes Additional Social history: patient is homeless, lives in car- unable to walk, reports no support services in place
--- NOTE | 2021-02-16 16:51 | W.PM.PROGNOT ---
Date of Service Date of service: 02/16/21 Time of Service: 16:51 Assessment and Plan Assessment and plan (1) Wounds and injuries: Status: Acute Assessment and plan: Patient with multiple bilateral wounds to buttocks and upper posterior legs d/t prolonged sitting in feces and urine that are improving with treatment. Osteo r/o by imaging. area consistent with chemical dermatitis, stable off antibiotics. continue compound cream to affected areas wound care following BC negative to date WBC normal (2) Ambulatory dysfunction: Status: Acute Assessment and plan: Patient has been inactive for approx 2 months driving around in his car. PT/OT with progression of ambulation and strength MRI of LS spine with no significant findings (3) Essential hypertension: Status: Chronic (4) Alcohol use disorder, moderate, in early remission, dependence: Status: Chronic Assessment and plan: no sign of withdrawal may benefit from rehabilitation thiamine daily (5) Discharge planning issues: Status: Acute Assessment and plan: case management following declined by rehab facilities PT feels outpatient PT will be required. anticipate discharge tomorrow. discussed with DR Rivera. Subjective Subjective Patient reports: no new complaints, feels better, tolerating liquids well, tolerating a regular diet and afebrile Exam Const General: cooperative (resting tremor left upper extremity), frail appearing and ill appearing (older appearing than stated age) chronically Nutritional Appearance: average body habitus Orientation: alert, awake and oriented x3 HENMT Head: normal to inspection, normocephalic and atraumatic Resp Effort & Inspection: normal respiratory effort Cardio Rate: regular rate Rhythm: regular rhythm Objective Last Vital Signs Temp 36.7 C 02/16/21 15:36 Pulse 91 H 02/16/21 15:36 Resp 17 02/16/21 15:36 BP 134/85 02/16/21 15:36 Pulse Ox 98 02/16/21 15:36
--- NOTE | 2021-02-16 16:58 | WOUNDCONS ---
- If Service Date Differs Date of service: 02/16/21 Time of Service: 16:58 Wound Initial Evaluation Narrative: Pt seen for weekly reevaluation. IAD markedly improved over the last 7 day with Rx cream application. See photos below. Pt reports itching, has hydrocortisone cream order PRN. Pt denies pain @ this time. Recommend continuing current treatment plan for 1 more week as the clotrimazole application duration should really be a total of 14 days. After that if skin still improved recommend discontinuing scheduled application of David cream and change to PRN. days with - Recomendation Physcian/Nurse Practioner Notified: Yes (Mary Hameed)
--- NOTE | 2021-02-16 18:17 | CMPROGNOTE_ITS ---
- If Service Date Differs Date of service: 02/16/21 Time of Service: 18:17 Care Management Progress Note S/O: Binu has been doing very well working with PT/OT, and is now independent in his room with his FWW. Today he met with Nolberto Sanchez, to fill out his application for [facility]. Later, he met with a instructional technology coach, coordinated by KATHE, to discuss resources for recovery, including sober homes in the area. As he is near discharge, CM asked that he call 211 for emergency housing. There were no available beds in the immediate area, and CM would not be able to coordinate services out of the area within their business hours. CM discussed this with the provider, who agreed to discharge him tomorrow, with services set up. CM will continue to follow. A: Binu is a 56 year old male admitted to [facility] on 02/08/21 with skin wound, ambulatory dysfunction. P: Anticipate Binu will go to emergency housing, once he is medically cleared, as he was homeless upon admission. He will need new orders for HH RN, PT, which CM will coordinate with the agency where he gets placed. He will likely transport via [facility] w/c van. He will follow up with his PCP and discharge plan of care. CM will continue to follow.
[2021-02-16] MEDS: Melatonin 3 MG TAB 9 MG PO (21:20)
[2021-02-16 23:00] VITALS: BP 128/79; PULSE 71; RESP 16; TEMP 36.5; O2SAT 97
[2021-02-17 07:25] VITALS: BP 132/80; PULSE 66; RESP 19; TEMP 36.6; O2SAT 99
[2021-02-17] MEDS: Thiamine 100 MG TAB PO (09:02)
[2021-02-17] MEDS: Normal Saline Flush 10 ML SYR IVP (09:02)
[2021-02-17] MEDS: Nicotine 21 MG/24 HR PATCH TD (09:02)
[2021-02-17] MEDS: Hydrocortisone 1% CR 30 GM TUBE TP ×2 (09:03→14:06)
[2021-02-17] MEDS: Ketoconazole 2% CREAM 15 GM TUBE TP (09:04)
--- NOTE | 2021-02-17 10:04 | OT.INTREAT ---
Date of service: 02/17/21 Time of Service: 09:55 Occupational Therapy Notes Occupational Therapy Inpatient Treatment Note Date: 02/17/21 PRECAUTIONS: Fall, standard, Full SUBJECTIVE: Pt was sitting in chair when OT arrived. He is agreeable to OT session and performing his dressing he denies bathing as he showered last night. OBJECTIVE: PAIN:no c/o pain DRESSING: sitting in chair- (I) don and doffing t-shirt, (I) don and doffing shorts/socks. PLAN: Pt is making gains in terms of his standing ADLS, he is (I) with dressing now in the seated position. TREATMENT CODES/TIME: 96120, 10 minutes (09:55) Joyce Jacobs OTR/[facility]
--- NOTE | 2021-02-17 10:08 | PT.INTREAT ---
Date of service: 02/17/21 Time of Service: 09:30 PT Notes Visit Reasons: Skin Wound, Ambulatory Dysfunction Inpatient Physical Therapy Treatment Note [facility] Date: 02/17/2021 PRECAUTIONS: Fall SUBJECTIVE: Binu states that he is awaiting a phone call about potential housing upon discharge today. OBJECTIVE: PAIN: No c/o pain BED MOBILITY/TRANSFERS: Independent with all at this time. GAIT Assistive Device: FWW Weight bearing: Full Assist: S Distance: 140' + 50' Deviation: Ataxic gait, wide BROCK, L foot inversion THEREX: Patient was instructed in functional [id number] exercise, at low plinth height, without UE support x10. He was also instructed in several neuro re-ed exercises, performed on Airex pads, including feet close (eyes open/eyes closed) and tandem stance. STAIRS: Up/down 13x6 using U rail and a step-to pattern with SBA. Patient requires cueing to take slow, purposeful steps. ASSESSMENT: Patient demonstrates continued improvement with functional mobility, demonstrating decreased ataxia with functional [id number] activity, and ability to perform stair negotiation x13 steps with SBA. PLAN: Recommend outpatient PT follow up upon discharge. TREATMENT CODE/TIME: 30 minutes; 58354 x2 (09:15)
--- NOTE | 2021-02-17 13:06 | PDOC.CMDIS ---
- If Service Date Differs Date of service: 02/17/21 Time of Service: 13:06 LACE Index Scoring Tool - Questions: Length of Stay (in days): 7 - 13 Acuity (Admit via E.D.?): Yes E.D. Visits: 2 - Answers: Total Score: 10 Risk of Readmission: High Risk Care Management Discharge Reason for Hospitalization: skin wound, ambulatory disfunction Discharge Plan: Binu will discharge to the [facility] in [place], which he obtained as emergency housing through . He will have new orders for [facility] RN, PT, OT, BUOY TENDER. called to inform [facility] of his discharge today. His brother will drive him there via private vehicle. He will follow up with his PCP and discharge plan of care. Patient/Family Education Needs: Review discharge instructions regarding activity levels and medications, discussion of self care needs and goals of care. Services Needed at Discharge: Home Health Care Services ([facility] RN, PT, OT, BUOY TENDER)
--- NOTE | 2021-02-17 15:18 | PDOC.HHF2F_ITS ---
Home Health Certification Home Health Certification: 1. Encounter Date and Reason I certify that Binu Bello was seen by Mary Hameed on 02/17/21 and that I had a [id number] encounter with this patient that meets the physician face to face encounter requirements. 2. Clinical Findings Supporting Skilled Need and Homebound Status I certify that home health services are medically necessary, include either intermittent fdc and/or physical/speech therapy, and that this patient is homebound in that absences from the home require considerable and taxing effort and are infrequent or of short duration, or are attributable to the need to receive medical care. [X] (a) Attached documentation from encounter provides clinical findings supporting skilled need and homebound status (including what assistance patient requires to leave the home). The encounter with the patient was in whole, or in part, for the following medical condition, which is the primary reason for home health care: Skin Wound, Ambulatory Dysfunction Detention: routine nursing evaluation and wound care. Physical Therapy: routine evaluation and treatment Homebound: patient unable to safely leave unassisted d/t generalized weakness and unsteady gait, use of assistive device. 3. Certification and Authentication I certify that I composed the above information based on my clinical judgment relating to this patient's medical condition and, if applicable, clinical findings communicated to me by the NPP or inpatient physician who performed the Home Health Referral. All further orders will be obtained through _Elvin Pascual NP_(Community Based Physician - PCP)
--- NOTE | 2021-02-19 16:00 | PT.INDS ---
Date of service: 02/18/21 Time of Service: 18:00 PT Notes Visit Reasons: Skin Wound, Ambulatory Dysfunction Physical Therapy Inpatient Discharge Summary Date: 02/18/2021 Dates of Service: 08/06/2020 through 02/17/2021 This is a clinical summary of care provided for the duration of dates listed above. No charge was made in the completion of this documentation. Referring Doctor: Carmen Hair NP PT Orders: PT CONSULT: Eval/Treat. PRECAUTIONS: Fall. Standard. Activity as tolerated. High risk for skin breakdown. Patient Profile/Admitting Diagnosis: Guille is a 60-year-old male with history of ETOH abuse disorder who presented to the ED on 02/08/2021 with bilateral lower extremity pain and weakness. Patient is diagnosed with wounds and injuries to posterior thigh and buttocks, ambulatory dysfunction, hyponatremia, hand bilateral lower extremity edema. PMHX: Medical History (Updated 02/09/21 @ 08:41 by Carmen Hair NP) Alcohol use disorder, moderate, in early remission, dependence (05/10/17) Allergic rhinitis (08/15/17) Closed disp spiral fx of shaft of left tibia with delayed healing Elevated liver function tests (05/10/17) Essential hypertension (05/10/17) Hepatic steatosis (02/19/18) Elevated LFTs negative thorough workup previously. Possibly ingesting alcohol once again. Hypertension (05/10/17) fair control. Macrocytic anemia (03/06/18) We will repeat CBC. likely cause alcohol abuse Peripheral polyneuropathy (05/10/17) Prediabetes (02/19/18) Rectus sheath hematoma Recurrent dislocation, left shoulder Smoker (12/26/17) currently 1 pack for week. Unstable gait (05/10/17) Vitamin D deficiency (01/26/18) Social History/Home Situation: Has been living in his car for the past 5 to 6 weeks. Does short distances with bariatric FWW. Lived in a hotel previously. Has family but is estranged. Equipment Owned/DME: FWW, bariatric FWW Subjective: NT. See most recent CONSULTING MARINE ENGINEER notes. Objective: General Observation: NT. See most recent CONSULTING MARINE ENGINEER notes. Mental Status: NT. See most recent CONSULTING MARINE ENGINEER notes. Pain: NT. See most recent CONSULTING MARINE ENGINEER notes. ROM: Right Upper Extremity: Shoulder Flexion WFL. Shoulder abduction WFL. Elbow flexion WFL. Wrist flexion WFL. Functional opening and closing of hand WFL. Left Upper Extremity: Shoulder Flexion WFL. Shoulder abduction WFL. Elbow flexion WFL. Wrist flexion WFL. Functional opening and closing of hand WFL. Right Lower Extremity: Hip flexion allows up to 130 degrees. Hip extension about 10 degrees. Hip abduction WFL. Knee flexion up to 90 degrees onlyL. Ankle dorsiflexion to neutral only. Ankle plantarflexion WFL. Left Lower Extremity: Hip flexion allows up to 130 degrees. Hip extension about 10 degrees. Hip abduction WFL. Knee flexion up to 90 degrees onlyL. Ankle dorsiflexion to neutral only. Ankle plantarflexion WFL. Strength: Right Upper Extremity: Shoulder flexors 4-/5. Shoulder abductors 4-/5. Elbow flexors 4-/5. Elbow extensors 4-/5. Sample Selector strong. Left Upper Extremity: Shoulder flexors 4-/5. Shoulder abductors 4-/5. Elbow flexors 4-/5. Elbow extensors 4-/5. Sample Selector strong. Right Lower Extremity: Hip flexors 3-/5. Hip extensors 3-/5. Hip abductors 3-/5. Knee flexors 3-/5. Knee extensors 3+/5. Ankle dorsiflexors 3-/5. Ankle plantarflexors 4-/5. Left Lower Extremity: Hip flexors 3-/5. Hip extensors 3-/5. Hip abductors 3-/5. Knee flexors 3-/5. Knee extensors 3+/5. Ankle dorsiflexors 3-/5. Ankle plantarflexors 4-/5. Bed Mobility/Transfers: Rolling independent Sit to supine independent Sit to stand independent Stand to sit independent Bed to bedside independent Bedside commode to bed independent Bed to reclining chair independent Reclining chair to bed independent Gait: Instructed patient with level surface ambulation of up to 300 feet requiring supervisiont. Supriya increased. Step height in and creased. Step length increased. Stairs: Up and down 12 x 6 with step to gait pattern while holding onto 1 rail with cues for safety given. Balance: Static Sitting: Normal Dynamic Sitting: Normal Static Standing: Fair Dynamic Standing: Fair Assessment: Significant functional mobility gains achieved during this episode of care. Patient will benefit from home health PT services in order to progress mobility level using least restrictive assistive ambulatory device, assess home safety, identify additional equipment needs, and establish a functional maintenance program that will increase ability of patient to remain at home. Patient presents with clinical signs and symptoms consistent with current/admitting diagnoses that have resulted to mobility limitations, gait instability, generalized weakness, and overall ADL decline as demonstrated by the following impairment level findings: 1. Decreased strength to B UE/LE major muscle groups 2. Impaired sitting/standing balance 3. Impaired activity tolerance 4. Limitation of joint range of motion in B LE joints 5. Shortness of breath 6. Skin injury to bilateral buttocks and thighs Impairments are contributing to the following functional limitations: 1. Decline in bed mobility skills 2. Decline in transfer skills 3. Difficulty with ambulation without assistive device 4. Increased completion time for mobility ADL performance 5. Increased risk for falls Goals: Goals X1 week 1. Supine-Sit independent MET 2. Sit-Supine independent MET 3. Sit-Stand independent MET 4. Stand-Sit independent with FWW MET 5. Bed-Chair independent with FWW MET 6. Chair-Bed independent with FWW MET 7. Supervision gait on level surface with use of FWW for at least 200 feet without report of pain nor dyspnea MET 8. Fair static and dynamic standing balance/tolerance MET DISCHARGE RECOMMENDATIONS: Patient will benefit from correction facility placement for continued skilled physical therapy services in order to progress mobility level, strength, and balance in preparation for a safe discharge to home. TREATMENT CODE/TIME: [place] Thank you for the opportunity to participate in the care of this patient. Lisa Catalan PT, DPT, CLT [facility] [place], [place]
== END 2021-02-17 14:28 | disposition home health service (06) | DRG 593 ==
LOC: ER 14:41 → MS 14:46
PROVIDERS: Nurse Practitioner Acute Care; Nurse Practitioner Family; Admitting Provider Internal Medicine; Emergency Provider Student in an Organized Health Care Education/Training Program; PCP Nurse Practitioner Family; Visit Provider Internal Medicine
DX: L98.411 Non-pressure chronic ulcer of buttock limited to breakdown of skin (principal); E87.1 Hypo-osmolality and hyponatremia; L25.8 Unspecified contact dermatitis due to other agents; L97.121 Non-pressure chronic ulcer of left thigh limited to breakdown of skin; L97.111 Non-pressure chronic ulcer of right thigh limited to breakdown of skin; R60.0 Localized edema; Z20.822 Contact with and (suspected) exposure to COVID-19; R26.2 Difficulty in walking, not elsewhere classified; F10.21 Alcohol dependence, in remission; J30.9 Allergic rhinitis, unspecified; I10 Essential (primary) hypertension; D53.8 Other specified nutritional anemias; G62.9 Polyneuropathy, unspecified; R73.03 Prediabetes; F17.210 Nicotine dependence, cigarettes, uncomplicated; E55.9 Vitamin D deficiency, unspecified; Z59.0 Homelessness; B35.3 Tinea pedis; B35.1 Tinea unguium; L24.9 Irritant contact dermatitis, unspecified cause; K76.0 Fatty (change of) liver, not elsewhere classified
CPT/HCPCS: 11721; 36415; 72158; 80048; 80053; 82550; 87040; 87635; 93005; 96361; 96365; 96367; 97110; 97162; 97167; 97530; 97535; 99285; 73701; 74177; 80320; 81003; 83605; 83735; 85025; 93010; 93970; 99232; 99233; 99238; J1941; J2270; J3490

== ENCOUNTER 2021-03-02 03:36 | Outpatient (CLI) | payer MEDICARE, SELFPAY ==
[2021-03-02 12:25] LABS: Calculated LDL 123 mg/dL (<100); Cholesterol 206 mg/dL (<200); HDL Cholesterol 58 mg/dL (40-60); Triglyceride 127 mg/dL (<150)
[2021-03-02 12:41] LABS: Hemoglobin A1C 4.7 % (<5.7)
[2021-03-03 09:27] LABS: PSA, Screening 0.5 ng/mL (0.0-3.5)
== END 2021-03-02 03:37 | disposition home or self-care (01) ==
LOC: LOS 03:36
PROVIDERS: PCP Nurse Practitioner Family; Visit Provider Nurse Practitioner Family
DX: I10 Essential (primary) hypertension (principal); R73.03 Prediabetes; R35.1 Nocturia; Z12.5 Encounter for screening for malignant neoplasm of prostate
CPT/HCPCS: 36415; 80061; 84153; 83036

== ENCOUNTER 2021-09-10 16:00 | Outpatient (REF) | payer OTHER, SELFPAY ==
[2021-09-10 20:27] LABS: TSH 1.42 uIU/mL (0.36-3.74)
== END 2021-09-10 16:01 | disposition home or self-care (01) ==
LOC: LBN 16:00
PROVIDERS: PCP Nurse Practitioner Family; Visit Provider Nurse Practitioner Family
DX: R63.5 Abnormal weight gain (principal)
CPT/HCPCS: 84443

== ENCOUNTER 2022-01-30 17:43 | Emergency (ER) | payer OTHER, SELFPAY ==
[2022-01-30 17:54] VITALS: BP 141/97; PULSE 107; RESP 22; TEMP 36.6; O2SAT 97
--- NOTE | 2022-01-30 18:00 | DI.RAD_ITS ---
Exam(s) XR SHOULDER RT COMPLETE 2+V EXAM: XR SHOULDER RT COMPLETE 2+V CLINICAL HISTORY: R/O Dislocation, Shoulder Inj. TECHNIQUE: 2D digital imaging was performed. COMPARISON: CR,XR XR SHOULDER RT COMP POST REDUC from 06/30/2019 FINDINGS: Two views,: There is anteroinferior dislocation of the humeral head relative to the glenoid fossa. Possible subt le Hill-Sachs deformity. No obvious bony Bankart lesion. No abnormal soft tissue calcifications. I psilateral clavicle is intact and AC joint is not dislocated. No adjacent rib fractures evident. IMPRESSION: Anteroinferior dislocation of the glenohumeral joint. DATA REPOSITORY: RADIATION DOSE DELIVERED:
--- NOTE | 2022-01-30 18:50 | DI.VRAD_ITS ---
PROCEDURE INFORMATION: Exam: XR Right Shoulder Exam date and time: 01/30/2022 18:39 Age: 57 years old Clinical indication: Injury or trauma; Blunt trauma (contusions or hematomas); Right; Injury date: 01/30/22; Injury details: Fall, shoulder pain TECHNIQUE: Imaging protocol: Radiologic exam of the Right shoulder. Views: 2 or more views. COMPARISON: CR XR SHOULDER RT COMP POST REDUC 06/30/2019 01:56 FINDINGS: Bones/joints: Anterior inferior glenohumeral dislocation. Likely Hill-Sachs deformity of the humeral head. Soft tissues: Swelling about the shoulder. IMPRESSION: Anterior inferior glenohumeral dislocation. Dictated and Authenticated by: Juana Escobar MD. Ordering:MARQUITA Francisco MD
--- NOTE | 2022-01-30 18:56 | W.ED.GENAD ---
Discharge Plan Disposition Patient Disposition: HOME Condition: Stable Discharge Details Clinical Impression: Dislocation of shoulder, anterior, right, closed Primary Care Provider: Elvin Pascual ED Provider: Maryam Valadez Home Meds and New Rx's Prescriptions: No Action triamcinolone acetonide 0.1 % cream 1 applic topical BID Qty: 30 2RF losartan 100 mg tablet 100 mg PO DAILY Qty: 90 3RF amlodipine 10 mg tablet 10 mg PO DAILY Qty: 90 3RF sertraline 50 mg tablet 50 mg PO DAILY Qty: 90 3RF hydrochlorothiazide 25 mg tablet 25 mg PO DAILY Qty: 90 3RF Discharge Instructions Instructions: Shoulder Dislocation (ED) Additional Instructions: Do not eat or drink anything after midnight tonight. You may take the pain medication and muscle relaxer 1 every 4-6 hours as needed for pain. Please take Tylenol or Ibuprofen with food every 4-6 hours as needed for pain and swelling. Wear the sling sleep upright. Apply ice. I spoke with Dr. Bhagat with orthopedics at [facility]. He recommends that you present to the emergency department first thing in the morning they will take you to the OR to reduce your shoulder. Please be seen sooner for any problems with blood flow to your hand, if you have cold blue numb or tingly extremity. Please do not drive or operate heavy machinery while under the influence of the medications. Referrals: [facility] [Outside] - 1 day Discharge Data Discharge Date/Time-TO BE ENTERED AT DEPARTURE: 01/30/22 23:07 Medical Decision Making 57-year-old male presents to the ER with a chief complaint of right shoulder dislocation which occurred approximately an hour and a half prior to arrival. Patient states he was mowing the lawn and lifting up some branches over his head when he felt his shoulder go out. He reports that he has dislocated the shoulder approximately 14 or 15 times in the past. He does have some tingling to the distal extremity. Pulses are intact extremity is pink warm and dry. He denies any head injury neck pain back pain or any other associated symptoms. He did not fall off the lawnmower. Does have a past medical history of ataxia and uses a walker normally, hypertension, hepatic steatosis, anemia, polyneuropathy, vitamin D deficiency, hyponatremia and anxiety. He also has a history of alcohol use disorder in remission. He denies any drugs or alcohol upon arrival. He denies taking any medications prior to arrival. x-ray shows anterior-inferior glenohumeral dislocation. Likely Hill-Sachs deformity of the humeral head. IV, Dilaudid and Zofran ordered. Will consent for shoulder dislocation. I did discuss patient with ER attending Dr. Tyler. 0: Discussed patient case with Dr. Ryan Toth who was at bedside for patient evaluation. I did attempt sternocleidomastoid massage which patient did not tolerate well. He does give verbal consent for conscious sedation with propofol. Dr. Ramirez at bedside. Patient moved to more appropriate room respiratory therapy called, will prepare patient for conscious sedation. 4: Dr. Ryan Toth at bedside for closed reduction and conscious sedation. Reduction unsuccessful. Will consult with Ortho and consider possible transfer. At this time there is no orthopedic on-call at this facility. 2219: No Ortho on-call at [facility], [facility] transfer center contacted and images pushed. 2221: Spoke with Dr. Bhagat [facility] Ortho on-call he recommends discharge patient home with a sling muscle relaxers pain medicine. Have patient be n.p.o. after midnight, have patient present to the ER for staying in the a.m. and they will take him to the OR for reduction. Patient has good neurovascular exam prior to discharge radial and ulnar pulses intact. Hand is pink warm dry cap refill less than 2 I did discuss this plan of care with patient who verbalizes understanding and is in agreement with plan. Imaging Data Radiologic Study: Imaging: X-Ray Radiologist's impression: Exam: XR Right Shoulder Exam date and time: 01/30/2022 18:39 Age: 57 years old Clinical indication: Injury or trauma; Blunt trauma (contusions or hematomas); Right; Injury date: 01/30/22; Injury details: Fall, shoulder pain TECHNIQUE: Imaging protocol: Radiologic exam of the Right shoulder. Views: 2 or more views. COMPARISON: CR XR SHOULDER RT COMP POST REDUC 06/30/2019 01:56 FINDINGS: Bones/joints: Anterior inferior glenohumeral dislocation. Likely Hill-Sachs deformity of the humeral head. Soft tissues: Swelling about the shoulder. IMPRESSION: Anterior inferior glenohumeral dislocation. HPI General Mode of arrival: wheelchair. Date/Time Provider Initiated Documentation: 01/30/22 17:47. Limitations to Documentation: no limitations. Information obtained by: patient, RN notes reviewed and old records reviewed. History of Present Illness described as moderate, HPI Narrative: 57-year-old male presents to the ER with a chief complaint of right shoulder dislocation which occurred approximately an hour and a half prior to arrival. Patient states he was mowing the lawn and lifting up some branches over his head when he felt his shoulder go out. He reports that he has dislocated the shoulder approximately 14 or 15 times in the past. He does have some tingling to the distal extremity. Pulses are intact extremity is pink warm and dry. He denies any head injury neck pain back pain or any other associated symptoms. He did not fall off the lawnmower. Does have a past medical history of ataxia and uses a walker normally, hypertension, hepatic steatosis, anemia, polyneuropathy, vitamin D deficiency, hyponatremia and anxiety. He also has a history of alcohol use disorder in remission. He denies any drugs or alcohol upon arrival. He denies taking any medications prior to arrival. Related Data Home Medications Medication Instructions Recorded Confirmed triamcinolone acetonide 0.1 % 1 applic topical BID #30 grams 09/10/21 01/30/22 topical cream losartan 100 mg tablet 100 mg PO DAILY #90 tabs 10/15/21 01/30/22 amlodipine 10 mg tablet 10 mg PO DAILY #90 tabs 11/05/21 01/30/22 sertraline 50 mg tablet 50 mg PO DAILY #90 tabs 11/05/21 01/30/22 hydrochlorothiazide 25 mg tablet 25 mg PO DAILY #90 tabs 11/26/21 01/30/22 Previous Rx's Medication Instructions Recorded triamcinolone acetonide 0.1 % 1 applic topical BID #30 grams 09/10/21 topical cream losartan 100 mg tablet 100 mg PO DAILY #90 tabs 10/15/21 amlodipine 10 mg tablet 10 mg PO DAILY #90 tabs 11/05/21 sertraline 50 mg tablet 50 mg PO DAILY #90 tabs 11/05/21 hydrochlorothiazide 25 mg tablet 25 mg PO DAILY #90 tabs 11/26/21 Allergies Allergy/AdvReac Type Severity Reaction Status Date / Time lisinopril AdvReac Mild COUGH Verified 01/30/22 18:30 General Stated Complaint: Orthopedic MAX: 3 Review of Systems All systems reviewed & are unremarkable except as noted in HPI and below Constitutional Constitutional: Reports as per HPI ENT Ears, Nose, Mouth, and Throat: Denies neck pain Musculoskeletal Musculoskeletal: Reports as per HPI, Denies back pain, Reports deformity (Right Shoulder), Reports arthralgias, Reports joint swelling, Reports limited range of motion, Reports loss of height, Denies neck pain and Reports tingling Neurologic Neurologic: Reports tingling PFSH All Active Problems (Updated 01/30/22 @ 22:46 by Maryam Valadez NP) Dislocation of shoulder, anterior, right, closed (Acute) Insomnia (Acute) Anxiety (Chronic) Loss of balance (Acute) Bilateral edema of lower extremity (Acute) Ataxia (Acute) Vitamin D deficiency (Chronic 01/26/18) Smoker (Chronic 12/26/17) currently 1 pack for week. Prediabetes (Chronic 02/19/18) Peripheral polyneuropathy (Chronic 05/10/17) Macrocytic anemia (Chronic 03/06/18) We will repeat CBC. likely cause alcohol abuse Hypertension (Chronic 05/10/17) fair control. Hepatic steatosis (Chronic 02/19/18) Elevated LFTs negative thorough workup previously. Possibly ingesting alcohol once again. Elevated liver function tests (Acute 05/10/17) Allergic rhinitis (Acute 08/15/17) Alcohol use disorder, moderate, in early remission, dependence (Chronic 05/10/17) Medical History (Updated 01/30/22 @ 22:46 by Maryam Valadez NP) Closed disp spiral fx of shaft of left tibia with delayed healing Rectus sheath hematoma Recurrent dislocation, left shoulder Right shoulder pain DISLOCATION-07/22/15 Family History Father Heart disease Social History (Updated 06/14/21 @ 15:50 by Odilia Main) Smoking/Tobacco Use Status: Current every day Tobacco Type: cigarettes and smokeless tobacco Smokeless tobacco user: chewing tobacco Quit status: not considering quitting Second Hand Exposure: No Smoking risk assessment performed?: Yes Alcohol Intake: former Drug use: Daily Substance use type: marijuana Number of Children: 3 number of grandchildren: 8 Pets and animals: No Sexually active: Yes Do you think of yourself as: straight/heterosexual Current gender identity: male What is your relationship status?: How often do you talk on the phone with friends or family?: decline to answer How often do you get together with friends or relatives?: decline to answer How often do you attend voodoo or yazidi services?: decline to answer Do you belong to any clubs or organized social groups?: no Panel score (0-1 are the most socially isolated patients): 0 Emma/Christianity: No preference Seatbelt use: never Helmet use: Yes Helmet use: sometimes Drive intox or ride w/intox truck driver's offsider: No Do you feel safe at home: Yes Do you feel safe in your relationship?: Yes Additional Social history: patient is homeless, lives in car- unable to walk, reports no support services in place Exam Narrative Exam Narrative: General: Well Developed, Awake and Alert, conversant. Skin: Warm and Dry HEENT: Head: No palpable deformities, Normocephalic Eyes: Pupils PERRLA, EOM's intact. No periorbital eccymosis or step off Ears: Canal patent. Tympanic membranes are clear . No sutton's sign, no hemptympanum. Nose/Face: Atraumatic. Facial bones nontender to palpation and stable with manipulation. Mouth/Throat: No intraoral trauma. Teeth and mandible are intact. Neck: No midline tenderness, no step off, no deformity to palpation of C-spine. Trachea midline. Chest: No surface trauma. Nontender without crepitus or deformity. Lungs clear to ausculatation bilaterally. Heart: RRR, no rubs, murmurs or gallop. Abdomen: No abrasions, ecchymosis, or surface trauma. Nondistended. Nontender to palpation no guarding, rebound, or rigidity. Pelvis: Nontender to palpation and stable to compression. Femoral pulses strong and equal Extremities: no surface trauma. Sensation intact. Peripheral pulses intact and equal. Neuro: ANO x4, GCS 15, cranial nerves II through XII intact. Motor and sensory exam nonfocal. Reflexes are symmetric. Extrem Right upper extremity: normal capillary refill and shoulder/upper arm Details: swelling and deformity Location: of the shoulder joint Location: anteriorly; no cyanosis and joint enlargement noted Shoulder/upper arm images: 1. Loss of height consistent with Dislocation Course Vital Signs Vital signs: Vital Signs Temperature 36.6 C 01/30/22 17:54 Pulse 107 H 01/30/22 17:54 Respiratory Rate 22 01/30/22 17:54 Blood Pressure 141/97 H 01/30/22 17:54 Pulse Oximetry 97 01/30/22 17:54 Temperature 36.6 C 01/30/22 17:54 Temperature Source Temporal Artery Scan 01/30/22 17:54 Pulse 107 H 01/30/22 17:54 Respiratory Rate 22 01/30/22 17:54 Respiratory Effort Non-Labored 01/30/22 18:26 Blood Pressure 141/97 H 01/30/22 17:54 Blood Pressure Position Sitting 01/30/22 17:54 Pulse Oximetry 97 01/30/22 17:54 Oxygen Delivery Method Room Air 01/30/22 17:54 Oxygen Flow Rate 0 01/30/22 17:54 Pain Level 8 01/30/22 18:26
[2022-01-30] MEDS: Ondansetron 4 MG/2 ML VIAL IVP (19:28)
[2022-01-30] MEDS: HYDROmorphone 2 MG/ML VIAL 1 MG IVP (19:28)
[2022-01-30] MEDS: Normal Saline 1,000 ML 150 ML IV (19:28)
[2022-01-30 21:24] VITALS: RESP 19; O2SAT 97
[2022-01-30 21:30] VITALS: PULSE 98; RESP 17; O2SAT 100
[2022-01-30] MEDS: Propofol 200 MG/20 ML VIAL 100 MG IVP ×3 (21:35→21:40)
[2022-01-30 21:40] VITALS: RESP 17; O2SAT 99
--- NOTE | 2022-01-30 21:53 | NUR.NOTE ---
Nursing Note: Conscious sedation done per protocol. Time out 2133. MD Bell gave 50mg propofol at 2135. 100mg propofol at 2139, 50mg propofol at 2139. Shoulder reduction unsuccessful. Patient recovered well from conscious sedation-awaiting further plan.
[2022-01-30] MEDS: oxyCODONE 5 mg/Acetaminophen 325 mg TAB 3 TAB PO (22:54)
[2022-01-30] MEDS: Cyclobenzaprine 10 MG TAB, 3 TABS/BTL PO (22:55)
[2022-01-30 22:57] VITALS: BP 179/115; PULSE 104; TEMP 36.7; O2SAT 97
--- NOTE | 2022-01-31 11:12 | NUR.NOTE ---
Nursing Note: At the request of Patito Suazo nursing electrician substation supervisor I faxed the provider note, [facility] report and had the images pushed. F [phone]
== END 2022-01-30 23:07 | disposition home or self-care (01) ==
PROVIDERS: Emergency Provider Registered Nurse Emergency; PCP Nurse Practitioner Family
DX: S43.014A Anterior dislocation of right humerus, initial encounter (principal); F17.210 Nicotine dependence, cigarettes, uncomplicated; F17.220 Nicotine dependence, chewing tobacco, uncomplicated; X50.0XXA Overexertion from strenuous movement or load, initial encounter; Y93.H2 Activity, gardening and landscaping
CPT/HCPCS: 23650; 96361; 96374; 99285; 73030; 99284; J2405; J2704

== ENCOUNTER 2022-07-14 01:28 | Outpatient (CLI) | payer OTHER, SELFPAY ==
--- NOTE | 2022-07-14 07:00 | DI.RAD_ITS ---
Exam(s) XR KNEE LT 3V AP,LAT,MAYRA EXAM: XR KNEE LT 3V AP,LAT,MAYRA CLINICAL HISTORY: worsening bilat knee pain, m25.561, m25.562. TECHNIQUE: 2D digital imaging was performed of the left knee. Three images were obtained. AP, late ral and PA tunnel views were obtained. COMPARISON: CR XR tib/fib LT from 09/05/2018 FINDINGS: BONES: No acute fracture is present. No bony destructive lesion is seen. A portion of an intramedull roger anabelle in the proximal tibia is visualized and is unremarkable. JOINTS: The knee is normally aligned. No joint effusion is seen. There is mild narrowing of the media l femoral tibial joint. Mild spurring is seen at the posterior patella. SOFT TISSUE: Normal. IMPRESSION: Mild degenerative changes of the left knee. DATA REPOSITORY: RADIATION DOSE DELIVERED:
--- NOTE | 2022-07-14 07:00 | DI.RAD_ITS ---
Exam(s) XR KNEE RT 3V AP,LAT,MAYRA EXAM: XR KNEE RT 3V AP,LAT,MAYRA CLINICAL HISTORY: Worsening pain. TECHNIQUE: 2D digital imaging was performed of the right knee. Three views obtained. Merchant, AP, l ateral and PA tunnel views were obtained. COMPARISON: No exams were available for comparison FINDINGS: BONES: No acute fracture is present. No bony destructive lesion is seen. JOINTS: The knee is normally aligned. No joint effusion is seen. SOFT TISSUE: Mild edema in the prepatellar soft tissues. IMPRESSION: 1. No acute fracture or dislocation. The joint spaces are well maintained. 2. Mild soft tissue swelling anterior to the patella. DATA REPOSITORY: RADIATION DOSE DELIVERED:
== END 2022-07-14 01:48 ==
PROVIDERS: PCP Nurse Practitioner Family; Visit Provider Nurse Practitioner Family
DX: M25.561 Pain in right knee (principal); M17.12 Unilateral primary osteoarthritis, left knee; R22.41 Localized swelling, mass and lump, right lower limb
CPT/HCPCS: 73562

== ENCOUNTER 2022-07-21 10:23 | Outpatient (CLI) | payer OTHER, SELFPAY ==
[2022-07-21 10:12] LABS: Abs Immature Grans 0.03 10^3/uL (0.0-0.06); Absolute Basophil Count 0.05 10^3/uL (0.0-0.2); Absolute Eosinophil Count 0.05 10^3/uL (0.0-0.7); Absolute Lymphocyte Count 2.06 10^3/uL (1.2-3.4); Absolute Monocyte Count 0.33 10^3/uL (0.1-0.8); Absolute Neutrophil Count 3.52 10^3/uL (1.2-6.7); Basophils % 0.8; Eosinophils % 0.8; HGB 15.8 g/dL (13.5-17.5); Immature Grans % 0.5; Lymphocytes % 34.1; MCH 30.9 pg (27.0-33.0); MCHC 35.1 % (32.0-36.0); MCV 88 fL (80-95); MPV 9.9 fL (8.0-11.0); Monocytes % 5.5; Neutrophils % 58.3; Platelet Count 273 10^3/uL (130-400); RBC 5.12 10^6/uL (4.36-5.78); RDW 12.7 % (11.8-14.1); RDW-SD 41.3 fL; WBC 6.04 10^3/uL (4.4-10.8)
[2022-07-21 11:45] LABS: Folate 3.1 ng/mL (8.6-20.0); Vitamin B12 327 pg/mL (193-986)
== END 2022-07-21 10:24 | disposition home or self-care (01) ==
LOC: LBO 10:23
PROVIDERS: PCP Nurse Practitioner Family; Visit Provider Nurse Practitioner
DX: D53.9 Nutritional anemia, unspecified (principal); R53.83 Other fatigue
CPT/HCPCS: 36415; 82607; 82746; 85025

== ENCOUNTER 2022-09-29 10:48 | Outpatient (CLI) | payer OTHER, SELFPAY ==
--- NOTE | 2022-09-29 10:30 | DI.RAD_ITS ---
Exam(s) XR HIP RT COMPLETE AP PELVIS EXAM: XR HIP RT COMPLETE AP PELVIS CLINICAL HISTORY: hip pain. TECHNIQUE: 2D digital imaging was performed of the right hip. Two images were obtained. AP pelvis a nd lateral right hip views were obtained. COMPARISON: No exams were available for comparison FINDINGS: BONES: No acute fracture is present. No bony destructive lesion is seen. JOINTS: No dislocation present. Mild degenerative changes are seen in the right hip with joint space narrowing and acetabular spurring. Similar findings are seen in the left hip. SOFT TISSUE: Normal. IMPRESSION: Mild degenerative changes of the hips. DATA REPOSITORY: RADIATION DOSE DELIVERED:
--- NOTE | 2022-09-29 10:52 | DI.RAD_ITS ---
Exam(s) XR LUMBAR SPINE AP, LAT EXAM: XR LUMBAR SPINE AP, LAT CLINICAL HISTORY: back pain. TECHNIQUE: 2D digital imaging was performed of the lumbar spine. Three images were obtained. AP an d lateral views were obtained. COMPARISON: MR MR LUMBAR SPINE WO/W from 02/09/2021 FINDINGS: BONES: No fracture or destructive lesion. There are anterior bridging osteophytes present. Degenerat leticia changes are seen at the facets at L5-S1. DISKS: Intervertebral disc spaces are maintained. ALIGNMENT: Lumbar spinal alignment is within normal limits. No spondylolysis or spondylolisthesis. SOFT TISSUE: Atherosclerosis. IMPRESSION: DISH in the lumbar spine. DATA REPOSITORY: RADIATION DOSE DELIVERED:
== END 2022-09-29 10:49 | disposition home or self-care (01) ==
LOC: DIORS 10:50
PROVIDERS: PCP Nurse Practitioner Family; Referring Provider Nurse Practitioner Family; Visit Provider Student in an Organized Health Care Education/Training Program
DX: M25.551 Pain in right hip; M25.561 Pain in right knee; M25.562 Pain in left knee; M47.816 Spondylosis without myelopathy or radiculopathy, lumbar region; R29.6 Repeated falls; R27.0 Ataxia, unspecified; Z99.89 Dependence on other enabling machines and devices
CPT/HCPCS: 20610; 99213; 72100; 73502; J1040

== ENCOUNTER 2022-11-11 10:59 | Outpatient (CLI) | payer OTHER, SELFPAY ==
--- NOTE | 2022-11-11 10:52 | DI.RAD_ITS ---
Exam(s) XR SHOULDER RT COMPLETE 2+V EXAM: XR SHOULDER RT COMPLETE 2+V CLINICAL HISTORY: shoulder pain. TECHNIQUE: 2D digital imaging was performed. Five views. COMPARISON: CR,XR XR SHOULDER RT COMPLETE 2+V from 01/30/2022 FINDINGS: BONES: No acute fracture is present. No bony destructive lesion is seen. Spurring greater and lesser tuberosity. JOINTS: No dislocation present. Moderate narrowing of the glenohumeral joint. Mild periarticular sp urring. Minimal spurring at the AC joint and undersurface of the acromion. SOFT TISSUE: Normal. IMPRESSION: The affu-in-nljjxgfz degenerative changes. DATA REPOSITORY: RADIATION DOSE DELIVERED:
== END 2022-11-11 11:00 | disposition home or self-care (01) ==
LOC: DIORS 10:59
PROVIDERS: PCP Nurse Practitioner Family; Referring Provider Nurse Practitioner Family; Visit Provider Student in an Organized Health Care Education/Training Program
DX: M19.011 Primary osteoarthritis, right shoulder; M24.411 Recurrent dislocation, right shoulder; M25.551 Pain in right hip
CPT/HCPCS: 99213; 73030

== ENCOUNTER → 2022-11-30 11:00 | Outpatient (BNVA) | payer OTHER, SELFPAY | PROVIDERS: PCP Nurse Practitioner Family; Referring Provider Nurse Practitioner Family; Visit Provider Student in an Organized Health Care Education/Training Program | DX: M21.821 Other specified acquired deformities of right upper arm (principal); M24.411 Recurrent dislocation, right shoulder | CPT/HCPCS: 99214 ==

== ENCOUNTER 2022-12-05 15:22 | Outpatient (CLI) | payer OTHER, SELFPAY ==
[2022-12-05 14:01] LABS: Abs Immature Grans 0.02 10^3/uL (0.0-0.06); Absolute Basophil Count 0.05 10^3/uL (0.0-0.2); Absolute Eosinophil Count 0.08 10^3/uL (0.0-0.7); Absolute Lymphocyte Count 2.44 10^3/uL (1.2-3.4); Absolute Monocyte Count 0.45 10^3/uL (0.1-0.8); Absolute Neutrophil Count 4.35 10^3/uL (1.2-6.7); Basophils % 0.7; Eosinophils % 1.1; HCT 43.8 % (40.0-50.0); HGB 15.2 g/dL (13.5-17.5); Immature Grans % 0.3; MCH 30.6 pg (27.0-33.0); MCHC 34.7 % (32.0-36.0); MCV 88 fL (80-95); MPV 9.7 fL (8.0-11.0); Monocytes % 6.1; Neutrophils % 58.8; Platelet Count 273 10^3/uL (130-400); RBC 4.97 10^6/uL (4.36-5.78); RDW 13.1 % (11.8-14.1); RDW-SD 42.1 fL; WBC 7.39 10^3/uL (4.4-10.8)
[2022-12-05 15:30] LABS: Folate 7.6 ng/mL (8.6-20.0); Vitamin B12 260 pg/mL (193-986)
[2022-12-06 10:49] LABS: Lyme Ab w Rflx to Lyme Confirm Negative (Negative)
[2022-12-07 16:24] LABS: Anaplasma phagocytophilum Negative (Negative); B. miyamotoi PCR Negative (Negative); Babesia divergens/MO-1 Negative (Negative); Babesia duncani Negative (Negative); Babesia microti Negative (Negative); Ehrlichia chaffeensis Negative (Negative); Ehrlichia ewingii/canis Negative (Negative); Ehrlichia muris eauclairensis Negative (Negative)
== END 2022-12-05 15:23 | disposition home or self-care (01) ==
LOC: LBO 15:25
PROVIDERS: PCP Nurse Practitioner Family; Visit Provider Nurse Practitioner
DX: D53.9 Nutritional anemia, unspecified (principal); W57.XXXA Bitten or stung by nonvenomous insect and other nonvenomous arthropods, initial encounter; T14.8XXA Other injury of unspecified body region, initial encounter
CPT/HCPCS: 36415; 87798; 82607; 82746; 85025; 86618

== ENCOUNTER 2022-12-22 01:39 | Outpatient (CLI) | payer OTHER, SELFPAY ==
--- NOTE | 2022-12-22 08:15 | DI.MRI_ITS ---
Exam(s) MR UPPER JOINT RT WO EXAM: MR UPPER JOINT RT WO CLINICAL HISTORY: R SHOULDER PAIN,recurrent dislocation, m24.411. TECHNIQUE: Multiplanar multisequence MRI was performed. COMPARISON: MR MR SHOULDER RIGHT WO CONTRAST from 02/25/2022 CR XR SHOULDER RIGHT from 10/23/2022 CR XR SHOULDER RT COMPLETE 2+V from 11/11/2022 FINDINGS: BONES: There is marrow edema in in the posterolateral aspect of the humeral head. There is flattenin g of the humeral head. The findings are most suggestive of a Hill-Sachs deformity. There is mild ed rochelle seen in the anterior inferior glenoid. JOINTS: There are mild degenerative changes of the acromioclavicular joint. There is a small spur at the inferior aspect of the humeral head. TENDONS: Supraspinatus: Unremarkable. There is a small amount of fluid seen between the supraspinatus and infr aspinatus muscles. Infraspinatus: Unremarkable. Subscapularis: Unremarkable. Teres Minor: Unremarkable. Biceps and [place]: Unremarkable. MUSCLES: Unremarkable. GLENOID LABRUM: Unremarkable on this noncontrast examination. SOFT TISSUES: Unremarkable. LIGAMENTS: Unremarkable. OTHER: Subacromial and subdeltoid bursae are unremarkable. IMPRESSION: 1. Findings most suggestive of a prior anterior shoulder dislocation with a Hill-Sachs deformity and contusion in the anterior inferior glenoid. 2. No evidence of a rotator cuff tear. No evidence of a labral tear on this noncontrast examination. 3. Degenerative changes of the acromioclavicular and glenohumeral joints. DATA REPOSITORY:
== END 2022-12-22 01:59 ==
LOC: DI 01:39
PROVIDERS: PCP Nurse Practitioner Family; Visit Provider Student in an Organized Health Care Education/Training Program
DX: M24.411 Recurrent dislocation, right shoulder (principal); M19.011 Primary osteoarthritis, right shoulder
CPT/HCPCS: 73221

== ENCOUNTER → 2022-12-27 10:33 | Outpatient (BNVA) | payer OTHER, SELFPAY | PROVIDERS: PCP Nurse Practitioner Family; Referring Provider Nurse Practitioner Family; Visit Provider Student in an Organized Health Care Education/Training Program | DX: M24.411 Recurrent dislocation, right shoulder (principal); M21.821 Other specified acquired deformities of right upper arm; M25.311 Other instability, right shoulder | CPT/HCPCS: 99214 ==

== ENCOUNTER 2022-12-29 02:50 | Outpatient (CLI) | payer OTHER, SELFPAY ==
--- NOTE | 2022-12-29 13:14 | DI.RAD_ITS ---
Exam(s) RF JOINT INJECTION FLUORO GUID EXAM: RF JOINT INJECTION FLUORO GUID CLINICAL HISTORY: R HIP INJ UNDER FLUORO,FLUORO GUIDED INJECTION,RT HIP PAIN,M25.551 TECHNIQUE: Fluoroscopy provided. Radiologist not present. CONTRAST MATERIAL: None COMPARISON: No exams were available for comparison FINDINGS: Fluoroscopy was provided for Dr. Duff during therapeutic hip injection.. Submitted image(s) reveal right hip injection. Please refer to the procedure report for complete details. Cumulative Dose: rafa Everett=0.167 mGy IMPRESSION: RADIATION DOSE DELIVERED:
[2022-12-29] MEDS: Omnipaque 300 MG/ML 10 ML BTL 5 ML IJ (13:24)
[2022-12-29] MEDS: methylPREDNISolone ACETATE 80 MG/ML VIAL IM (13:24)
[2022-12-29] MEDS: Bupivacaine 0.5% Pres-Free 10 ML VIAL 5 ML IJ (13:25)
--- NOTE | 2022-12-29 13:46 | W.PROCNOTE ---
Date of service: 12/29/22 Time of Service: 13:20 Procedure Note Date of procedure: 12/29/22 Procedure: Right Hip Injection with Fluoroscopic Guidance Surgeon/Proceduralist/Physician: Yaya Duff Procedure Diagnosis: Right Hip Osteoarthritis Procedure Indications: Binu has had persistent pain of the RIGHT hip and groin. Noninvasive measures have been tried. To serve as both diagnostic and therapeutic, an injection under fluoroscopy was recommended. I had discussed the risks of the procedure and the patient elected to proceed. Procedure Description: Binu was greeted in the flouroscopy room. The correct side was identified and the consent was reviewed with the patient and signed. The patient was then placed in the supine position on the fluoroscopy table. The RIGHT hip was then prepped with Chloraprep. The anterolateral injection starting point was identiifed by bony landmarks and fluoroscopy. The skin and soft tissue in the tract of the injection was anesthetized with 1% Lidocaine. A spinal needle was then inserted deep into the hip joint at the level of the lateral femoral neck under fluoroscopic guidance. A small amount of Omnipaque solution was injected to confirm intraarticular placement. Once confirmed, the hip was injected with 5cc of 0.5% Bupivicaine and 80mg of Depo-Medrol. A bandaid was placed on the injection site. The patient tolerated the procedure well.
== END 2022-12-29 03:10 ==
LOC: DI 02:50
PROVIDERS: PCP Nurse Practitioner Family; Visit Provider Student in an Organized Health Care Education/Training Program
DX: M25.551 Pain in right hip (principal)
CPT/HCPCS: 20610; 77002; J1040

== ENCOUNTER 2023-02-02 08:07 | Day surgery (SDC) | payer OTHER, SELFPAY ==
[2023-02-02] VITALS (10 sets, daily range): BP systolic 98–145; BP diastolic 46–80; PULSE 60–85; RESP 14–26; TEMP 36.2–36.5; O2SAT 95–98; BMI 31.9
--- NOTE | 2023-02-02 07:22 | W.PM.DSUDISC ---
Date of service: 02/02/23 Time of Service: 15:00 Discharge Plan Disposition Patient Disposition: Home Condition: Stable Discharge Details Attending Provider: Luisito Nance Primary Care Provider: Elvin Pascual Home Meds and New Rx's Prescriptions: New naproxen 250 mg tablet 250 - 500 mg PO BID PRNQty: 40 0RF Rx Instructions: take with a meal aspirin 81 mg tablet,delayed release (DR/EC) 81 mg PO DAILY 7 Days Qty: 7 0RF oxycodone 5 mg tablet 5 - 10 mg PO Q4H MDD 30 mg PRN (Reason: moderate to severe pain) Qty: 18 0RF Continued lisinopril 30 mg tablet 30 mg PO DAILY Qty: 90 3RF triamcinolone acetonide 0.1 % cream 1 applic topical BID Qty: 30 2RF Discharge Instructions Additional Instructions: Surgery: Right shoulder arthroscopy with anterior labral repair/ stabilization, SLAP repair, Remplissage/partial articular rotator cuff repair, extensive debridement, and subacromial decompression. Activity: For 6 weeks, you should keep your arm at your side in a neutral position at all times except for physical therapy. Do not try to lift or raise your arm using your own muscles. You should use the sling whenever you are out of the house. You may have to adjust the abduction pillow or remove it for comfort. At home it is best to remove the sling and rest the arm on a pillow at your side or support the operative side with your other hand. You may allow the arm to dangle at your side. A physical therapy prescription will be sent electronically to begin in about 3 weeks. Postoperative protocol/ ROM restrictions: Weeks 0-3: 0 degrees external rotation Weeks 3-6: Maximum 30 degrees external rotation and 90 degrees forward elevation Weeks 6-8: Maximum 45 degrees external rotation and 120 degrees forward elevation Weeks 8+: Advance to full range of motion Weeks 10-12+: Start light rotator cuff strengthening and dynamic scapular stabilization Prescriptions: Aspirin 81 mg take 1 daily to prevent a blood clot for 7 days Naproxen 250 mg take 1-2 every 12 hours with a meal as needed for moderate pain Oxycodone 5 mg take 1-2 every 4-6 hours as needed for severe pain You may use [id number] Tylenol (acetaminophen) as needed for mild pain. These pain medications may be taken all at once or in different combinations as needed. Also, recommend Colace (docusate) as a stool softener as surgery and pain medicine cause constipation. You may try lzot-sji-dxulxks diphenhydramine (Benadryl) 25-50 mg nightly as a sleep aid Dressings: Remove shoulder bandage after 3 days. Leave the sticky Steri-Strips in place until they fall off or remove them after you shower. Cover the incisions with Band-Aids or leave them open to air. You may shower after 5 days. Follow-up: 10-[address] Nance You may take off the leg compression stockings this evening at home. You may also leave them on a few days longer if you have a history of leg swelling or edema. Let us know right away if you develop any redness, drainage, fevers, chest pain, or trouble breathing. Do not drink alcohol or drive for at least 24 hours after anesthesia. Please call the office during business hours with any questions or concerns. Discharge Orders Discharge Orders: Discharge Order (Routine); Ordered 02/02/23 Ordered By: Luisito Nance DS: Diagnosis Discharge Diagnosis (1) Instability of right shoulder joint: Status: Acute
--- NOTE | 2023-02-02 07:25 | ROE_ITS ---
Date of service: 02/02/23 Time of Service: 11:00 Operative Note Operative Note DATE OF PROCEDURE: 02/02/23 PRE-OP DIAGNOSIS: Right: 1. Partial articular rotator cuff tear over Hill-Sachs lesion 2. Anterior labral tear 3. SLAP tear 4. Bursitis POST-OP DIAGNOSIS: same PROCEDURE: Right: 1. Arthroscopic labral repair/stabilization, CPT #65701: This involved repair of the anterior and anterior inferior capsular labral complex 2. SLAP repair, CPT #12654: This involved repair of an unstable biceps tenodon anchor superior labrum 3. Rotator cuff repair, CPT# 71370. This involved repair of the suprapsinatus & infraspinatus using anchors and sutures to fill in the Hill-Sachs defect, also known as Remplissage 4. Extensive debridement, CPT# 83897. This involved using arthroscopic hand instruments, power instruments, and radiofrequency instruments to remove multiple osteochondral loose bodies, debride significant unstable cartilage edges and flaps somewhat globally humeral head and glenoid, debride significant anterior chronic synovitis, debride resect numerous anterior and posterior adhesions, debride the superior and posterior humeral head bone impaction defect 5. Subacromial decompression with partial acromioplasty, CPT# 59815. This involved using arthroscopic power instruments and a radiofrequency wand to complete a bursectomy and smooth the undersurface of the acromion. The assistant executive housekeeper was medically required in order to help assist in techniques above, which require positioning the arm, holding the arthroscope, and manipulating multiple instruments and sutures at the same time. This cannot be done without the help of an experienced assistant executive housekeeper. SURGEON: Luisito Nance PROCESS DEVELOPMENT ENGINEER: Kris Cottrell ANESTHESIA TYPE: General LMA/ETT and Primary Nerve Block Refer to Anesthesia Record ESTIMATED BLOOD LOSS: 10 PATHOLOGY: none sent COMPLICATIONS: None Patient was transported to: PACU Patient's condition: stable Implants: Arthrex: 2.9mm PushLock anchors x5 and 3.9mm Corkscrew anchors x2 Indications: The patient was diagnosed with the above conditions and appropriately indicated for surgical intervention. Please see complete medical record for details. Findings: Exam under anesthesia: Good range of motion, stable through test of motion with mechanical clunk going into wide abduction external rotation not more vigorously tested?anteriorly. No posterior instability. Glenohumeral joint: Significant chronic degenerative changes chondromalacia loose fibrinous chondral labral bodies. Ruptured completely inferior axillary pouch capsule. Not obviously torn from either the humeral side or the glenoid. Deficient completely anterior labrum. Thin diminutive [facility] L. Unstable biceps anchor SLAP tear. Otherwise intact biceps. Large moderate depth Hill?Sachs humeral head lesion extending under a large portion under the supraspinatus and infraspinatus. Posterior superior and posterior labral tear fraying. Profound bursitis. Minor bursal rotator cuff degenerative type tearing. Subacromial space: Significant bursitis. Significant rotator cuff injection inflammation no significant structural bursal rotator cuff tear. Procedure Description: In the operating room, general anesthesia was induced. Bilateral shoulders were examined. The patient was positioned in the beachchair position. All bony prominences were well-padded. Preoperative antibiotics were administered. The shoulder was prepped and draped in the usual sterile fashion. The correct patient, procedure, and side of the procedure were all verified prior to incision. Starting through the posterior portal a standard complete diagnostic arthroscopy was performed of the glenohumeral joint including inspection of the long head of the biceps, anterior and superior labrum, subscapularis tendon, supraspinatus and infraspinatus tendons, and axillary recess. The glenoid and humeral head cartilage as well as the posterior labrum were inspected from an anterior viewing portal. Significant findings and interventions noted above. An additional low anterior portal was established about the subscapularis. Labral repair using push lock anchors starting anterior inferiorly using the best tissue possible recreating capsule labral border along the anterior glenoid starting low proceeding up with 4 push lock anchors. Time was spent mobilizing and incorporated significant chronic and diminutive tissue to recreate soft tissue bumper anteriorly and anterior inferiorly. Most inferior the [facility] HL and some remnant labrum was used. More centrally the [facility] L and minimal labral remnant was available. There was good recreation of an anterior and anterior inferior soft tissue sling preventing anterior translation of the humeral head following the repairs. Tissue was incorporated new suture tape FiberLink's placed with a 90 degree lasso around the tissue and cinched appropriately. Some shifting was done from anteriorly superiorly. The roll secured with push lock anchors. The anterior labral deficiency and tearing continued superiorly into a SLAP tear stopping posterior superior with labral fraying. SLAP repair was done to increase additional stability given the longstanding high-grade instability as opposed to biceps tenodesis although this would typically have been reasonable given this age with the degenerative changes. The biceps tendon itself had a reasonable structure. A superior labrum could be readily detached from the superior glenoid but was otherwise reasonable and tissue quality. Through the high anterior cannula the self retrieving suture passer was used to place a suture tape FiberLink through the labral tissue avoiding the biceps tendon, repair site thoroughly debrided to optimize bone labral healing, and secured to a last fifth push lock anchor. The anterior and inferior capsule labral ligamentous repair was reasonably good especially continuing the starting quality and tissue damage. The superior labrum was stabilized without over constraint. Attention was then turned to the large posterior and superior Hill?Sachs lesion. Percutaneous kit used to localize trajectory with the 17-gauge needles to the medial margin spanning the Hill-Sachs lesion. Thorough bursectomy done in the subacromial space exposing these percutaneous needles. Undersurface acromion was exposed and smooth of minimal bone spurring. Using the percutaneous guides corkscrew anchors placed at the appropriate margin of the lesion through the rotator cuff. Knotless repair suture shuttled [id number] through each anchor through the bursal space viewed through the joint while appropriately tensioned down filling in the defect stably and completely. The repairs were stable and there was significant increased stability following the repair completion The shoulder was drained of arthroscopic fluid. All portal sites were copiously irrigated. These incisions were closed using 3-0 Monocryl in a buried fashion and then covered with Mastisol, Steri-Strips, Xeroform, dry gauze, and ABDs. The dressings were covered and secured with Medipore tape. The operative extremity was placed into a sling for immobilization. The patient awoke from anesthesia without complication and was transferred to the recovery room in a stable condition.
--- NOTE | 2023-02-02 09:24 | ANES.PREOP_ITS ---
General Info Date of Service Date Performed: 02/02/23 Height: 5 ft 8.5 in Weight: 96.8 kg Body Mass Index (BMI): 31.9 Surgical Procedure: Operation Date: 02/02/23 10:10 Proposed Procedure Side Surgeon p Shoulder Arthroscopy w/Labral Repair/ Stabilization and Remplissage Right Luisito Nance MD Meds Allergies and Home Medications Allergies Allergy/AdvReac Type Severity Reaction Status Date / Time lisinopril AdvReac Mild COUGH Verified 02/02/23 08:40 Home Medication Medication Instructions Recorded lisinopril 30 mg tablet 30 mg PO DAILY #90 tabs 12/29/22 triamcinolone acetonide 0.1 % 1 applic topical BID #30 grams 12/29/22 topical cream Current Visit Medications: Current Medications Generic Name Dose Route Start Last Admin Trade Name Freq PRN Reason Stop Dose Admin Ephedrine Sulfate 0 mg 02/02/23 09:02 Ephedrine 25 Mg/5 Ml Syringe IVP 03/04/23 09:01 DIRECTED PRN Fentanyl 0 mcg 02/02/23 09:02 Fentanyl 100 Mcg/2 Ml Vial IVP 03/04/23 09:01 DIRECTED PRN Hydromorphone HCl 0 mg 02/02/23 09:02 Hydromorphone 2 Mg/Ml Syr IVP 03/04/23 09:01 DIRECTED PRN Ringer's Solution 1,000 mls @ 30 mls/hr 02/02/23 06:00 IV 02/02/23 16:00 INFUSION EUGENIO Cefazolin Sodium/Dextrose 2 gm in 50 mls @ 100 mls/hr 02/02/23 06:00 Ancef Duplex IVPB 02/02/23 23:59 PREOP [facility] IV Miscellaneous Supplies 1 each 02/02/23 06:00 Iv Access IV 02/02/23 23:59 DIRECTED EUGENIO Naloxone HCl 0 mg 02/02/23 09:02 Naloxone 0.4 Mg/Ml Vial IVP 03/04/23 09:01 PRN PRN Oxycodone HCl 0 mg 02/02/23 07:07 Oxycodone 5 Mg Tab PO 03/04/23 07:06 Q3H PRN PRN Pain Sodium Chloride 0 ml 02/02/23 06:00 Normal Saline Flush 10 Ml Syr IV 02/02/23 23:59 PRN PRN Sodium Chloride 0 ml 02/02/23 06:00 Normal Saline 10 Ml Vial IJ 02/02/23 23:59 DIRECTED PRN Sterile Water 0 ml 02/02/23 06:00 Water,Injection,Sterile 10 Ml Vial IJ 02/02/23 23:59 DIRECTED PRN PFSH Active Problems Active Problems: Problem Status Onset Code Alcohol use disorder, moderate, in early remission, dependence 05/10/17 F10.21 Allergic rhinitis 08/15/17 J30.9 Elevated liver function tests 05/10/17 R94.5 Hepatic steatosis 02/19/18 K76.0 Hypertension 05/10/17 I10 Macrocytic anemia 03/06/18 D53.9 Peripheral polyneuropathy 05/10/17 G62.9 Smoker 12/26/17 F17.200 Vitamin D deficiency 01/26/18 E55.9 Ataxia R27.0 Bilateral edema of lower extremity R60.0 Hyponatremia E87.1 Loss of balance R26.89 Anxiety F41.9 Insomnia G47.00 Fatigue R53.83 Bilateral knee pain M25.561, M25.562 Back pain M54.9 Right hip pain M25.551 Degenerative arthritis of lumbar spine M47.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 states R Right shoulder pain DISLOCATION-07/22/15 Medical History Comments:: areli; 1x month avg, chews tobacco, states last chewed last night 2200. Surgical History Surgical History History of removal of retained hardware 03/2018 removal of screw in left tibia; other hardware remains Tobacco Smoking/Tobacco Use Status: Current every day Tobacco Type: cigarettes and s mokeless tobacco Smokeless tobacco user: chewing tobacco Passive smoking exposure: No Second hand exposure: No Alcohol Alcohol Intake: former Substance Use Substance use: Occasionally Substance use type: marijuana Details: 1x month avg Vital Signs and Lab Results Vital Signs Most Recent Vital Signs in EMR: Most Recent Vital Signs Temp Pulse Resp BP Pulse Ox 36.5 C 63 15 117/73 98 02/02/23 08:40 02/02/23 08:40 02/02/23 08:40 02/02/23 08:40 02/02/23 08:40 Lab Results Blood Type / Crossmatch: No Data to Display Complete Blood Count: No Data to Display Complete Metabolic Panel: No Data to Display Liver Function Panel: No Data to Display Coagulation Panel: No Data to Display Cardiac Panel: No Data to Display Arterial Blood Gas: No Data to Display Venous Blood Gas: No Data to Display Pancreas Panel: No Data to Display Thyroid Panel: No Data to Display Infectious Disease: 2 No Data to Display Blood Cultures: No Data to Display Toxicology Panel: No Data to Display Imaging and Studies Imaging and Studies Study information below may be from another EMR and interpreted by another provider. Please see original notes in EMR for more complete details. EKG Summary: 02/08/2021: Exam: Resting ECG Reason for Exam: tachycardia Patient Location: E HR:126 bpm ECG Measurements Heart Rate [address] 142 P 43 QRSd 86 QRS 39 QT 321 T0 QTc 465 Conclusion Sinus tachycardia...rate> 99 Inferior infarct, old...Q >35mS, II III aVF sinus tachycardia at 126, normal axis, inferior Q waves, no STEMI, nondiagnostic EKG Anesthesia Assessment and Plan Anesthesia History Personal History: No History of Anesthesia Complications Family History: No Family History of Anesthesia Complications Exercise Tolerance Exercise Tolerance: Metabolic Equivalents>4 Pertinent Negatives Pertinent Negatives: No Symptoms of GERD, No Major Cardiovascular Symptoms or Complaints and No Major Pulmonary Symptoms or Complaints Cardiac & Pulmonary Exam Cardiac Exam: Normal S1/S2 Heart Sounds Pulmonary Exam: Other (Diminished) Implantable Cardiac Device Does patient have a Pacemaker or an ICD?: No Airway Exam Known Difficult Airway: No Mallampati Class: 2 Mouth Opening: Normal (> 3cm) Thyromental Distance: Greater than 3 cm Facial Hair: Full Carmichael Neck Range of Motion: Full ROM Neck Circumference: Normal Teeth Condition: Generalized Poor Dentition ASA Classification ASA Score: ASA 2 Emergency Case?: No NPO Status NPO Status: NPO Clears >2 hours, Solids >8 hours Anesthesia Plan Resuscitation Status: Full Code Anesthesia Technique: General Anesthesia Airway Planned: Endotracheal Tube Pain Management: Surgeon and patient request nerve block Monitors Used: Standard Monitors and SedLine
[2023-02-02] MEDS: Lactated Ringers 1,000 ML 30 ML IV (09:45)
[2023-02-02] MEDS: ceFAZolin 2 GM/50 ML BAG IVPB (10:33)
--- NOTE | 2023-02-02 11:10 | W.ANESNERVE ---
Nerve Block Single Injection Procedure Date and Time Date Performed: 02/02/23 Procedure Start: 09:55 Location Where Procedure Performed Procedure Location: Day Surgery Unit Reason Performed: Postoperative Analgesia Requesting Provider: Luisito Nance Timeout Performed Timeout Performed: Yes Monitoring Used ECG, Blood Pressure, SpO2 and See EMR for corresponding vital signs Sterility Sterility: Hand Hygiene, Surgical Cap, Surgical Mask, Sterile Gloves and Chlorhexidine Sedation Given During Procedure Sedation Given (Indicate Dose Given): Versed IV Dose:: 2mg Patient Mental Status Patient Mental Status: Sedate with meaningful communication Nerve Block 1st Nerve Block: Laterality: Right Block Type: Interscalene (Low Interscalene) Ultrasound Image Saved?: Yes Needle / Catheter Used: 100mm SonoPlex II Local Anesthetic Bolus (Indicate Dose Given): Lidocaine used for local infiltration of skin, Injected in 3-5ml increments after negative blood aspiration, Bupivacaine 0.5% Dose:: 15mL and Exparel Dose:: 10mL Additives (Indicate Dose Given): None Ultrasound: Sterile probe cover and gel used Nerve Stimulator: Supplement to Ultrasound use Paresthesia: None Procedure Tolerated: No Complications Procedure Outcome: Successful Procedure Comment: Noted blood vessel on lateral aspect of nerve bundle, noted on color doppler, able to place local anesthetic on top of bundle, not laterally. Performed By: Jen Marks
[2023-02-02] MEDS: Normal Saline 100 ML (12:19)
[2023-02-02] MEDS: Tranexamic Acid 1,000 MG/10 ML VIAL 1000 MG (12:19)
[2023-02-02] MEDS: EPINEPHrine 30 MG/30 ML VIAL (12:33)
--- NOTE | 2023-02-02 14:55 | W.ANESPOSTOP ---
Postoperative Evaluation Date, Time and Location Date Performed: 02/02/23 Time Performed: 14:55 Patient Location: Day Surgery Unit Vital Signs Most Recent Imported Vital Signs: Most Recent Vital Signs Temp Pulse Resp BP Pulse Ox 36.4 C L 75 14 116/46 L 97 02/02/23 14:08 02/02/23 14:08 02/02/23 14:08 02/02/23 14:08 02/02/23 14:08 Pain Score Most Recent Pain Score: Most Recent Pain Score Pain Level 0 02/02/23 09:55 Assessment Mental Status: Arousable with meaningful communication Airway and Respiratory Function: Patent airway with normal (patient baseline) respiratory exam Cardiovascular Function: Hemodynamically Stable Hydration Status: Adequately Hydrated Nausea & Vomiting: No Nausea or Vomiting Pain: Pt. Denies Any Pain Peripheral Nerve Block: Regional nerve block not resolved at time of post operative discharge Postoperative Comments:: Patient A/Ox3, but verbalizing he's still feeling groggy from the anesthesia
--- NOTE | 2023-02-02 17:34 | PT.INIE ---
Date of service: 02/02/23 Time of Service: 16:37 PT Notes Physical Therapy Inpatient Initial Evaluation Date: 02/02/2023 Referring Doctor: Luisito Nance MD PT Orders: PT CONSULT: S/P Ortho Surgery PRECAUTIONS: Fall. Standard. PWB on the R UE with use of walker with platform per Dr. Nance. ? Patient Profile/Admitting Diagnosis: Binu is a 58-year-old male with diagnoses of recurrent dislocation of the R shoulder, Hill Sachs deformity on the R, and instability of the R joint, anterior labral tear, SLAP tear, R shoulder bursitis, and partial articular rotator cuff tear S/P arthroscopic labral repair, SLAP repair, rotator cuff repair, extensive debridement, subacromial decompression with partial acromioplasty on postoperative day 0. PMHX: All Active Problems?(Updated 02/02/23 @ 08:49 by Geeta Chavez) Alcohol use disorder, moderate, in early remission, dependence (Chronic 05/10/17) Allergic rhinitis (Acute 08/15/17) Elevated liver function tests (Acute 05/10/17) Hepatic steatosis (Chronic 02/19/18) Elevated LFTs negative thorough workup previously.? Possibly ingesting alcohol once again. Hypertension (Chronic 05/10/17) fair control. Macrocytic anemia (Chronic 03/06/18) We will repeat CBC. likely cause alcohol abuse Peripheral polyneuropathy (Chronic 05/10/17) Smoker (Chronic 12/26/17) Very seldom according to pt. Vitamin D deficiency (Chronic 01/26/18) Ataxia (Acute) Bilateral edema of lower extremity (Acute) Loss of balance (Acute) Anxiety (Chronic) Insomnia (Acute) Fatigue (Acute) Bilateral knee pain (Acute) Bilateral corticosteroid injections 09/29/22 Back pain (Acute) Right hip pain (Acute) Degenerative arthritis of lumbar spine (Acute) Recurrent dislocation, right shoulder (Acute) Hill Sachs deformity, right (Acute) Instability of right shoulder joint (Acute) Food insecurity (Acute) by Geeta Chavez) Closed disp spiral fx of shaft of left tibia with delayed healing History of broken leg left; surgery 09/2017 Dr Duncan Rectus sheath hematoma Recurrent dislocation, left shoulder pt. states R Right shoulder pain DISLOCATION-07/22/15 Surgical History? History of removal of retained hardware 03/2018 removal of screw in left tibia; other hardware remains Medical History?(Updated 02/02/23 @ 08:49 Social History/Home Situation: Lives in an apartment with ramp to enter. Has friends who may be able to help as needed. Has family but has been estranged from them. Uses 4WW prior to surgery. Equipment Owned/DME: FWW, bariatric FWW Subjective: Wants to go home. Agreeable to trying out options for him for assistive device for today's session. Cannot fully feel with nor move R UE due to effect of anesthesia. Objective: General Observation: Seated on bedside chair. Sling in arm needed readjustment. Mental Status: Alert and able to follow instructions. Oriented as to person, place, and time. Pain: None reported ROM: Right Upper Extremity: NT Left Upper Extremity: Shoulder Flexion WFL. Shoulder abduction WFL. Elbow flexion WFL. Wrist flexion WFL. Functional opening and closing of hand WFL. Right Lower Extremity: Hip flexion WFL. Hip abduction WFL. Knee flexion WFL. Ankle dorsiflexion WFL. Ankle plantarflexion WFL. Left Lower Extremity: Hip flexion WFL. Hip abduction WFL. Knee flexion WFL. Ankle dorsiflexion WFL. Ankle plantarflexion WFL. Strength: Right Upper Extremity: NT Left Upper Extremity: Shoulder flexors 4-/5. Shoulder abductors 4-/5. Elbow flexors 4-/5. Elbow extensors 4-/5. Track Leader strong. Right Lower Extremity: Hip flexors 3-/5. Hip extensors 3-/5. Hip abductors 3-/5. Knee flexors 3-/5. Knee extensors 3+/5. Ankle dorsiflexors 3-/5. Ankle plantarflexors 4-/5. Left Lower Extremity: Hip flexors 3-/5. Hip extensors 3-/5. Hip abductors 3-/5. Knee flexors 3-/5. Knee extensors 3+/5. Ankle dorsiflexors 3-/5. Ankle plantarflexors 4-/5. Bed Mobility/Transfers: Sit to stand contact guard assist Stand to sit contact guard assist Bed to chair without contact guard assist Chair to bed contact guard assist Gait: (Nurses Geeta and Hilda assisted for safety) With use of SBQC- Able to negotiate up to 75 feet with occasional contact guard assist to minimal due to ataxic gait pattern, posterior sway increased, appeared to fatigue easy with this device, near LOB during turning x 1 With use of FWW with platform- Able to negotiate up to 75 feet with stand by assist, posterior sway negligible, stability increased, PWB on the R UE, energy conserved better, gait pattern safer Balance: Static Sitting: Normal Dynamic Sitting: Normal Static Standing: Fair Dynamic Standing: Fair Special Tests: Mobility Limitations Standardized Measure [facility] 6 clicks Basic Mobility Inpatient Short Form: Raw Score: 18? CMS Score: 47% deficit? ? ? 4-Stage balance Test: Unsafe to be performed at this time Informed Consent/Education:? Patient was instructed in purpose of PT consult and plan of care. Agreeable to proceed with established PT POC to achieve personal goals. ASSESSMENT: Trialled small based quad caen and front-wheeled walker with platform for this session. Patient appeared more stable and less ataxic with use of the FWW with platform. Emphasized using the good L UE to place/remove R UE onto platform safely before starting to walk to ensure that adequate support for UE is provided while ensuring stable gait. This provider, along with Nurses Geeta and Hilda offered patient the opportunity to provide more training and to increase independence with level and non-level surface by staying overnight but patient declined. Patient was also advised that he may just use his L UE to hold onto the rail when negotiating the ramp to enter his house as the incline may cause him to fall back due to his impaired posterior balance awareness. Patient presents with clinical signs and symptoms consistent with current/admitting diagnoses that have resulted to mobility limitations, gait instability, generalized weakness, and overall ADL decline as demonstrated by the following impairment level findings: 1.? Decreased strength to B UE/LE major muscle groups, PWB on R UE 2.? Impaired sitting/standing balance 3.? Impaired activity tolerance Impairments are contributing to the following functional limitations: 1.? Difficulty with ambulation without assistive device 2.? Increased completion time for mobility ADL performance 3.? Increased risk for falls Patient is assessed as a 87920 complexity based on the following: History: -year-old? with past medical history as indicated above Examination: Demonstrable impairment in strength, balance, and mobility level with underlying impairments and functional limitations as exhibited above as well as deficit score of % utilizing the [facility] Mobility Inpatient Short Form Presentation: Decision Making: complexity Goals: N/A Plan of Care/Treatment Plan: N/A DISCHARGE RECOMMENDATIONS: PT to follow up on FWW training and ensure reduction of fall risk postoperatively. TREATMENT CODE/TIME: 81368 x 20 minutes, 97755 x 32 minutes beginning at 16:37 PM. Thank you for the opportunity to participate in the care of this patient. Lisa Catalan PT, DPT, CLT [facility] [place], [place]
== END 2023-02-02 17:45 | disposition home or self-care (01) ==
PROVIDERS: PCP Nurse Practitioner Family; Visit Provider Student in an Organized Health Care Education/Training Program
PROC: (CPT 29805; principal; 2023-02-02 10:00)
DX: S43.431A Superior glenoid labrum lesion of right shoulder, initial encounter (principal); S43.421A Sprain of right rotator cuff capsule, initial encounter; X58.XXXA Exposure to other specified factors, initial encounter; M75.51 Bursitis of right shoulder; M25.311 Other instability, right shoulder
CPT/HCPCS: 29806; 29807; 29827; 29823; 29826; 76942; 97162; 97530; J0690; J1100; J1885; J2001; J2250; J2371; J2405; J2704; J3475

== ENCOUNTER → 2023-02-15 15:07 | Outpatient (BNVA) | payer OTHER, SELFPAY | PROVIDERS: PCP Nurse Practitioner Family; Referring Provider Nurse Practitioner Family; Visit Provider Student in an Organized Health Care Education/Training Program | DX: Z47.89 Encounter for other orthopedic aftercare (principal); M25.311 Other instability, right shoulder ==

== ENCOUNTER → 2023-04-04 08:38 | Outpatient (BNVA) | payer OTHER, SELFPAY | PROVIDERS: PCP Nurse Practitioner Family; Visit Provider Student in an Organized Health Care Education/Training Program | DX: Z47.89 Encounter for other orthopedic aftercare (principal); M25.311 Other instability, right shoulder ==

== ENCOUNTER 2023-08-28 14:05 | Outpatient (CLI) | payer OTHER, SELFPAY ==
[2023-08-28 15:29] LABS: CREATININE 1.1 mg/dL (0.70-1.30); Estimated GFR 77.81 (mL/min/1.73m2); Potassium 4.7 mmol/L (3.5-5.1)
== END 2023-08-28 14:06 | disposition home or self-care (01) ==
LOC: LBO 14:20
PROVIDERS: PCP Nurse Practitioner Family; Visit Provider Nurse Practitioner Family
DX: I10 Essential (primary) hypertension (principal)
CPT/HCPCS: 36415; 82565; 84132